=== PATIENT | female | born 1960 | race American Indian/Alaskan Native ===

== ENCOUNTER 2019-09-22 22:01 | Inpatient (IN) | payer MEDICARE ==
[2019-09-22] MEDS ORDERED: LORazepam 2 MG/ML VIAL IV ONE (22:38)
[2019-09-22] MEDS ORDERED: levETIRAcetam 1000 MG/NS 0.75% 1,000 MG/100 ML BAG IV ONE (22:39)
[2019-09-22 23:27] LABS: Basophils # (Auto) 0.1 K/mm3 (0.0-0.1); Basophils % (Auto) 0.5 % (0.0-1.8); Eosinophils # (Auto) 0.2 K/mm3 (0.0-0.4); Eosinophils % (Auto) 1.7 % (0.0-4.3); Hemoglobin 12.2 gm/dl (10.1-14.3); Lymphocytes # (Auto) 2.3 K/mm3 (1.2-5.4); Lymphocytes % (Auto) 18.2 % (13.4-35.0); Mean Corpuscular HGB Conc 33 % (30-34); Mean Corpuscular Volume 90 fl (79-97); Monocytes # (Auto) 0.9 K/mm3 (0.0-0.8); Platelet Count 316 K/mm3 (140-440); Red Blood Count 4.13 M/mm3 (3.65-5.03); Red Cell Distribution Width 13.7 % (13.2-15.2)
[2019-09-22 23:35] LABS: Albumin 3.7 g/dL (3.9-5); Calcium 9.6 mg/dL (8.4-10.2)
[2019-09-23] MEDS ORDERED: SODIUM CHLORIDE 0.9% 1000 ML 1,000 ML IV ONE (00:31)
--- NOTE | 2019-09-23 00:35 | Emergency Department Report ---
ED Seizure HPI - General Chief Complaint: Seizure Stated Complaint: SEIZURE Time Seen by Provider: 09/22/19 22:26 Source: EMS Mode of arrival: Stretcher Limitations: No Limitations - History of Present Illness Initial Comments: Patient is a 59-year-old female brought in by EMS with complaints of seizures. History is provided by nurse who received report from EMS. EMS received patient from [facility] which she is currently inpatient for schizoaffective disorder bipolar type. EMS advised nurse that patient had 6 seizures 3 of which were witnessed by EMS. EMS gave patient 3 mg of Ativan IM. Unable to obtain any further history due to patient's condition. It appears based on paperwork provided by [facility] that patient has a history of seizures and takes Keppra. - Related Data Home Medications Medication Instructions Recorded Confirmed Last Taken Divalproex [Pete MONTELONGO] 500 mg PO BID 09/23/19 09/23/19 Unknown Doxepin HCl 25 mg PO HS 09/23/19 09/23/19 Unknown Oxybutynin Chloride [Ditropan Xl] 10 mg PO HS 09/23/19 09/23/19 Unknown Paliperidone Palmitate [Invega 156 mg IM QMONTH 09/23/19 09/23/19 Unknown Sustenna] Potassium Chloride [K-Dur] 20 meq PO DAILY 09/23/19 09/23/19 Unknown Trazodone HCl 100 mg PO HS 09/23/19 09/23/19 Unknown hydrOXYzine HCL 50 mg PO QHS 09/23/19 09/23/19 Unknown levETIRAcetam [Keppra TAB] 500 mg PO BID 09/23/19 09/23/19 Unknown Allergies Allergy/AdvReac Type Severity Reaction Status Date / Time No Known Allergies Allergy Verified 09/23/19 02:20 ED Review of Systems ROS: Stated complaint: SEIZURE Other details as noted in HPI Comment: Unobtainable due to pts medical conditions ED Past Medical Hx - Past Medical History Previous Medical History?: Yes Hx Hypertension: Yes Hx Congestive Heart Failure: Yes Hx Seizures: Yes Hx Psychiatric Treatment: (psychosis) - Surgical History Past Surgical History?: Yes - Social History Smoking Status: Unknown if ever smoked Substance Use Type: None - Medications Home Medications: Home Medications Medication Instructions Recorded Confirmed Last Taken Type Divalproex Dr Ada MONTELONGO] 500 mg PO BID 09/23/19 09/23/19 Unknown History Doxepin HCl 25 mg PO HS 09/23/19 09/23/19 Unknown History Oxybutynin Chloride [Ditropan Xl] 10 mg PO HS 09/23/19 09/23/19 Unknown History Paliperidone Palmitate [Invega 156 mg IM QMONTH 09/23/19 09/23/19 Unknown History Sustenna] Potassium Chloride [K-Dur] 20 meq PO DAILY 09/23/19 09/23/19 Unknown History Trazodone HCl 100 mg PO HS 09/23/19 09/23/19 Unknown History hydrOXYzine HCL 50 mg PO QHS 09/23/19 09/23/19 Unknown History levETIRAcetam [Keppra TAB] 500 mg PO BID 09/23/19 09/23/19 Unknown History ED Physical Exam - General Limitations: No Limitations General appearance: lethargic, other (responds to sternal rub) - Head Head exam: Present: atraumatic, normocephalic - Eye Eye exam: Present: PERRL, EOMI. Absent: periorbital swelling, periorbital tenderness - ENT ENT exam: Present: mucous membranes moist - Respiratory Respiratory exam: Present: normal lung sounds bilaterally. Absent: respiratory distress, wheezes, rales, rhonchi, stridor, chest wall tenderness, accessory muscle use, decreased breath sounds, prolonged expiratory - Cardiovascular Cardiovascular Exam: Present: regular rate, normal rhythm, normal heart sounds, systolic murmur - Neurological Exam Neurological exam: Present: other (responds to sternal rub) - Skin Skin exam: Present: warm, dry ED Course Vital Signs 09/22/19 09/22/19 09/22/19 22:05 22:10 22:15 Temperature 97.7 F Pulse Rate 77 82 Respiratory 19 18 Rate Blood Pressure Blood Pressure 148/88 [Left] O2 Sat by Pulse Oximetry 09/22/19 09/22/19 09/22/19 22:30 22:45 23:00 Temperature Pulse Rate 86 82 82 Respiratory 22 21 19 Rate Blood Pressure 141/93 161/99 161/99 Blood Pressure [Left] O2 Sat by Pulse 94 98 98 Oximetry 09/22/19 09/22/19 09/22/19 23:15 23:30 23:45 Temperature Pulse Rate 78 74 70 Respiratory 17 16 15 Rate Blood Pressure 158/93 149/89 161/88 Blood Pressure [Left] O2 Sat by Pulse 97 97 99 Oximetry 09/23/19 09/23/19 09/23/19 00:00 00:15 00:30 Temperature Pulse Rate 72 75 73 Respiratory 18 15 13 Rate Blood Pressure 149/83 163/88 144/89 Blood Pressure [Left] O2 Sat by Pulse 98 98 99 Oximetry 09/23/19 09/23/19 09/23/19 00:45 01:00 01:15 Temperature Pulse Rate 71 71 67 Respiratory 15 15 15 Rate Blood Pressure 129/77 135/81 140/81 Blood Pressure [Left] O2 Sat by Pulse 98 96 95 Oximetry 09/23/19 09/23/19 09/23/19 01:30 01:45 02:10 Temperature Pulse Rate 71 70 77 Respiratory 16 19 16 Rate Blood Pressure 128/85 135/81 135/81 Blood Pressure [Left] O2 Sat by Pulse 99 97 91 Oximetry 09/23/19 09/23/19 09/23/19 02:16 02:30 02:40 Temperature Pulse Rate 71 74 78 Respiratory 16 16 17 Rate Blood Pressure 135/81 135/81 135/81 Blood Pressure [Left] O2 Sat by Pulse 94 97 99 Oximetry 09/23/19 09/23/19 09/23/19 02:50 03:00 03:10 Temperature Pulse Rate 72 75 72 Respiratory 16 14 15 Rate Blood Pressure 135/81 135/81 135/81 Blood Pressure [Left] O2 Sat by Pulse 100 91 99 Oximetry 09/23/19 09/23/19 09/23/19 03:20 03:30 03:40 Temperature Pulse Rate 78 70 68 Respiratory 18 16 14 Rate Blood Pressure 135/81 135/81 135/81 Blood Pressure [Left] O2 Sat by Pulse 99 98 100 Oximetry 09/23/19 03:50 Temperature Pulse Rate 72 Respiratory 15 Rate Blood Pressure 135/81 Blood Pressure [Left] O2 Sat by Pulse 95 Oximetry - Consultations Consultation #1: 09/23/19 00:[address] Moody, hospitalist regarding patient history and results, will accept and resume care of patient ED Medical Decision Making - Lab Data Result diagrams: 09/22/19 22:53 09/22/19 22:53 Lab Results 09/22/19 09/22/19 Range/Units 22:53 22:53 WBC 12.8 H (4.5-11.0) K/mm3 RBC 4.13 (3.65-5.03) M/mm3 Hgb 12.2 (10.1-14.3) gm/dl Hct 37.0 (30.3-42.9) % MCV 90 (79-97) fl MCH 29 (28-32) pg MCHC 33 (30-34) % RDW 13.7 (13.2-15.2) % Plt Count 316 (140-440) K/mm3 Lymph % (Auto) 18.2 (13.4-35.0) % [place] % (Auto) 7.0 (0.0-7.3) % Eos % (Auto) 1.7 (0.0-4.3) % Baso % (Auto) 0.5 (0.0-1.8) % Lymph # 2.3 (1.2-5.4) K/mm3 [place] # 0.9 H (0.0-0.8) K/mm3 Eos # 0.2 (0.0-0.4) K/mm3 Baso # 0.1 (0.0-0.1) K/mm3 Seg Neutrophils % 72.6 H (40.0-70.0) % Seg Neutrophils # 9.3 H (1.8-7.7) K/mm3 Sodium 140 (137-145) mmol/L Potassium 3.6 (3.6-5.0) mmol/L Chloride 96.4 L (98-107) mmol/L Carbon Dioxide 29 (22-30) mmol/L Anion Gap 18 mmol/L BUN 25 H (7-17) mg/dL Creatinine 1.1 (0.6-1.2) mg/dL Estimated GFR 51 ml/min BUN/Creatinine Ratio 23 % Glucose 164 H (65-100) mg/dL Calcium 9.6 (8.4-10.2) mg/dL Magnesium 2.30 (1.7-2.3) mg/dL Total Bilirubin 0.40 (0.1-1.2) mg/dL AST 67 H (5-40) units/L ALT 25 (7-56) units/L Alkaline Phosphatase 102 (35-129) units/L Total Creatine Kinase 2337 H (30-135) units/L Total Protein 7.6 (6.3-8.2) g/dL Albumin 3.7 L (3.9-5) g/dL Albumin/Globulin Ratio 0.9 % - Radiology Data Radiology results: report reviewed CT HEAD WITHOUT CONTRAST INDICATION: Patient states she had multiple seizures today. TECHNIQUE: All CT scans at this location are performed using CT dose reduction for ALARA by means of automated exposure control. COMPARISON: None available. FINDINGS: BRAIN: No hemorrhage or mass effect are seen. No evidence of acute infarction is noted. ORBITS: Normal as visualized. SOFT TISSUES OF HEAD: Normal. CALVARIUM: Normal. VISUALIZED PARANASAL SINUSES AND MASTOID AIR CELLS: Clear. ADDITIONAL FINDINGS: None. IMPRESSION: No acute intracranial abnormality. Signer Name: Bull Auguste MD Signed: 09/23/2019 3:09 AM Workstation Name: [id number] Transcribed By: SVITLANA Dictated By: Bull Auguste MD Electronically Authenticated By: Bull Auguste MD Signed Date/Time: 09/23/19 030 DD/ 6 TD/TT: CHEST 1 VIEW 0029 INDICATION / CLINICAL INFORMATION: confusion COMPARISON: None available. FINDINGS: SUPPORT DEVICES: Stable HEART / MEDIASTINUM: Stable LUNGS / PLEURA: Mild right basilar atelectatic changes are seen. No definite acute infiltrates are noted. Less than full degree of inspiration is seen. No pneumothorax. ADDITIONAL FINDINGS: No significant additional findings. IMPRESSION: No significant changes Signer Name: Bull Auguste MD Signed: 09/23/2019 3:33 AM Workstation Name: [id number] Transcribed By: SVITLANA Dictated By: Bull Auguste MD Electronically Authenticated By: Bull Auguste MD Signed Date/Time: 09/23/19 0333 - Medical Decision Making Patient is a 59-year-old female brought in by EMS with complaints of seizures. History is provided by nurse who received report from EMS. EMS received patient from [facility] which she is currently inpatient for schizoaffective disorder bipolar type. EMS advised nurse that patient had 6 seizures 3 of which were witnessed by EMS. EMS gave patient 3 mg of Ativan IM. Unable to obtain any further history due to patient's condition. It appears based on paperwork provided by [facility] that patient has a history of seizures and takes Keppra. Vitals are normal. CT head: IMPRESSION: No acute intracranial abnormality. XR chest: LUNGS / PLEURA: Mild right basilar atelectatic changes are seen. No definite acute infiltrates are noted. Less than full degree of inspiration is seen. No pneumothorax. ADDITIONAL FINDINGS: No significant additional findings.IMPRESSION: No significant changes. Labs with mildly elevated white blood cell count, CK is elevated likely secondary to seizures, UA without evidence of UTI or dehydration. UDS is negative. Patient given Keppra, Ativan, 1 L normal saline. Patient continues to be confused. Dr. Irving, ER attending recommended admission. Spoke to Dr. Moody, hospitalist regarding patient history and results, will accept and resume care of patient Critical care attestation.: If time is entered above; I have spent that time in minutes in the direct care of this critically ill patient, excluding procedure time. ED Disposition Clinical Impression: Seizures, Confusion Disposition: DC-09 OP ADMIT IP TO THIS HOSP Is pt being admited?: Yes Does the pt Need Aspirin: No Condition: Fair Time of Disposition: 00:35
[2019-09-23] MEDS ORDERED: MAGNESIUM HYDROXIDE (MOM) ORAL LIQD UDC PO PRN (02:09)
[2019-09-23] MEDS ORDERED: ONDANSETRON 4 MG/2 ML INJ IV PRN (02:09)
--- NOTE | 2019-09-23 02:22 | History and Physical Report ---
History of Present Illness Date of examination: 09/23/19 Date of admission: 09/23/19 00:36 Chief complaint: Altered mental status Seizure disorder History of present illness: 59-year-old -E[place]ian female with known history of schizoaffective disorder and seizure disorder brought in by EMS today with complaint of seizures. Most of the history was gotten from the emergency room physician as patient could not give any history.Patient is currently a resident of [facility]. Patient was said to have had about 6 episodes of seizures today 3 of which were witnessed by EMS prior to arrival in the emergency room. She was found to be confused upon arrival in the emergency room. Work-up in the emergency room including CT scan of the head has been unremarkable. Patient has been started on Keppra. Past History Past Medical History: heart failure, hypertension, seizures, other (Bipolar disorder, schizoaffective disorder) Past Surgical History: No surgical history Social history: no significant social history Family history: no significant family history Medications and Allergies Allergies Allergy/AdvReac Type Severity Reaction Status Date / Time No Known Allergies Allergy Verified 09/23/19 02:20 Active Meds: Active Medications Acetaminophen (Tylenol) 650 mg PO Q4H PRN PRN Reason: Pain MILD(1-3)/Fever >100.5/NICHOLAS Heparin Sodium (Porcine) (Heparin) 5,000 unit SUB-Q Q8HR FATOUMATA Sodium Chloride (Nacl 0.9% 1000 Ml) 1,000 mls @ 75 mls/hr IV DIRECT FATOUMATA Magnesium Hydroxide (Milk Of Magnesia) 30 ml PO Q4H PRN PRN Reason: Constipation Ondansetron HCl (Zofran) 4 mg IV Q8H PRN PRN Reason: Nausea And Vomiting Sodium Chloride (Sodium Chloride Flush Syringe 10 Ml) 10 ml IV BID FATOUMATA Sodium Chloride (Sodium Chloride Flush Syringe 10 Ml) 10 ml IV PRN PRN PRN Reason: LINE FLUSH Review of Systems ROS unobtainable: due to mental status Exam - Constitutional Vitals: Temp Pulse Resp BP Pulse Ox 97.7 F 77 19 148/88 95 09/22/19 22:05 09/22/19 22:05 09/22/19 22:05 09/22/19 22:10 09/22/19 22:30 General appearance: Present: no acute distress, obese - EENT Eyes: Present: PERRL, EOM intact ENT: hearing intact, clear oral mucosa, dentition normal - Neck Neck: Present: supple, normal ROM - Respiratory Respiratory effort: normal Respiratory: bilateral: CTA - Cardiovascular Heart Sounds: Present: S1 & S2. Absent: gallop, systolic murmur, diastolic murmur, rub - Abdominal General gastrointestinal: Present: soft, non-tender, non-distended, normal bowel sounds. Absent: mass - Integumentary Integumentary: Present: clear, warm, dry. Absent: rash - Musculoskeletal Musculoskeletal: strength equal bilaterally - Psychiatric Psychiatric: cooperative - Neurologic Neurologic: CNII-XII intact, no focal deficits, moves all extremities Results - Labs CBC & Chem 7: 09/22/19 22:53 09/22/19 22:53 Labs: Abnormal lab results 09/22/19 09/22/19 Range/Units 22:53 22:53 WBC 12.8 H (4.5-11.0) K/mm3 [place] # 0.9 H (0.0-0.8) K/mm3 Seg Neutrophils % 72.6 H (40.0-70.0) % Seg Neutrophils # 9.3 H (1.8-7.7) K/mm3 Chloride 96.4 L (98-107) mmol/L BUN 25 H (7-17) mg/dL Glucose 164 H (65-100) mg/dL AST 67 H (5-40) units/L Total Creatine Kinase 2337 H (30-135) units/L Albumin 3.7 L (3.9-5) g/dL Assessment and Plan - Patient Problems (1) Seizures Current Visit: Yes Status: Acute Plan to address problem: Patient started on Keppra and placed on seizure precautions. We will place a consult to neurology for evaluation and recommendation. (2) History of bipolar disorder Current Visit: Yes Status: Acute Plan to address problem: We will resume routine home medications once patient able to tolerate oral int carlitos. (3) Confusion Current Visit: Yes Status: Acute Plan to address problem: Possibly secondary to the seizure disorder. Will monitor mental status. (4) DVT prophylaxis Current Visit: Yes Status: Acute Plan to address problem: Patient placed on subcutaneous heparin. (5) Full code status Current Visit: Yes Status: Acute
--- NOTE | 2019-09-23 03:14 | Cat Scan Report ---
CT HEAD WITHOUT CONTRAST INDICATION: Patient states she had multiple seizures today. TECHNIQUE: All CT scans at this location are performed using CT dose reduction for ALARA by means of automated exposure control. COMPARISON: None available. FINDINGS: BRAIN: No hemorrhage or mass effect are seen. No evidence of acute infarction is noted. ORBITS: Normal as visualized. SOFT TISSUES OF HEAD: Normal. CALVARIUM: Normal. VISUALIZED PARANASAL SINUSES AND MASTOID AIR CELLS: Clear. ADDITIONAL FINDINGS: None. IMPRESSION: No acute intracranial abnormality. Signer Name: Bull Auguste MD Signed: 09/23/2019 3:09 AM Workstation Name: [id number]
--- NOTE | 2019-09-23 03:38 | XRay Report ---
CHEST 1 VIEW 0029 INDICATION / CLINICAL INFORMATION: confusion COMPARISON: None available. FINDINGS: SUPPORT DEVICES: Stable HEART / MEDIASTINUM: Stable LUNGS / PLEURA: Mild right basilar atelectatic changes are seen. No definite acute infiltrates are no alek. Less than full degree of inspiration is seen. No pneumothorax. ADDITIONAL FINDINGS: No significant additional findings. IMPRESSION: No significant changes Signer Name: Bull Auguste MD Signed: 09/23/2019 3:33 AM Workstation Name: [id number]
[2019-09-23] MEDS: levETIRAcetam 500 MG in DEXTROSE 5% IN WATER 100 ML IV SCH ×2 (09:54→21:40)
[2019-09-23] MEDS: SODIUM CHLORIDE 0.9% 1000 ML 1,000 ML IV SCH ×2 (09:55→18:24)
[2019-09-23] MEDS: HEPARIN 5,000 UNIT/1 ML VIAL SUB-Q SCH ×3 (10:05→21:43)
--- NOTE | 2019-09-23 17:38 | Event Note ---
Date: 09/23/19 Patient seen and evaluated Patient admitted for seizures and bipolar disorder Acute encephalopathy
[2019-09-23] MEDS: POTASSIUM CHLORIDE ER 20 MEQ TAB PO SCH (18:06)
[2019-09-23 19:05] LABS: Bilirubin,Urine NEG (Negative); Blood,Urine NEG (Negative); Color,Urine Yellow (Yellow); Protein,Urine <15 mg/dL mg/dL (Negative); RBC,Urine < 1.0 /HPF (0.0-6.0); Urobilinogen,Urine < 2.0 mg/dL (<2.0); WBC,Urine < 1.0 /HPF (0.0-6.0)
[2019-09-23 19:11] LABS: Amphetamine Screen,Urine Negative; Benzodiazepines Screen,Urine Negative; Cannabinoid Screen,Urine Negative; Cocaine Screen,Urine Negative; Methadone Screen,Urine Negative; Opiate Screen,Urine Negative
[2019-09-23] MEDS: DOXEPIN 25 MG CAP PO SCH (21:43)
[2019-09-23] MEDS: traZODone 100 MG TAB PO SCH (21:43)
[2019-09-23] MEDS ORDERED: DOXEPIN HCL 25 MG PO SCH (22:00)
[2019-09-23] MEDS ORDERED: HYDROXYZINE HCL 50 MG PO SCH (22:00)
[2019-09-24] MEDS: HEPARIN 5,000 UNIT/1 ML VIAL SUB-Q SCH ×3 (05:04→21:42)
[2019-09-24] MEDS: OXYBUTYNIN 5 MG TAB PO SCH ×2 (10:59→21:41)
[2019-09-24] MEDS: levETIRAcetam 500 MG in DEXTROSE 5% IN WATER 100 ML IV SCH (10:59)
[2019-09-24] MEDS: POTASSIUM CHLORIDE ER 20 MEQ TAB PO SCH (10:59)
--- NOTE | 2019-09-24 16:19 | Consultation ---
History of Present Illness Chief complaint: ams, seizure History of present illness: This is the Tele Neurology consult. 59-year-old -Ivorian female with known history of schizoaffective disorder and seizure disorder brought in by EMS today with complaint of seizures. Most of the history was gotten from the emergency room physician as patient could not give any history.Patient is currently a resident of [facility]. Patient was said to have had about 6 episodes of seizures today 3 of which were witnessed by EMS prior to arrival in the emergency room. She was found to be confused upon arrival in the emergency room. Work-up in the emergency room including CT scan of the head has been unr emarkable. Patient has been started on Keppra. Past History Past Medical History: heart failure, hypertension, seizures, other (Bipolar disorder, schizoaffective disorder) Past Surgical History: No surgical history Social history: no significant social history Family history: no significant family history Medications and Allergies Allergies Allergy/AdvReac Type Severity Reaction Status Date / Time No Known Allergies Allergy Verified 09/23/19 02:20 Active Meds: Active Medications Acetaminophen (Tylenol) 650 mg PO Q4H PRN PRN Reason: Pain MILD(1-3)/Fever >100.5/NICHOLAS Heparin Sodium (Porcine) (Heparin) 5,000 unit SUB-Q Q8HR FATOUMATA Sodium Chloride (Nacl 0.9% 1000 Ml) 1,000 mls @ 75 mls/hr IV DIRECT FATOUMATA Magnesium Hydroxide (Milk Of Magnesia) 30 ml PO Q4H PRN PRN Reason: Constipation Ondansetron HCl (Zofran) 4 mg IV Q8H PRN PRN Reason: Nausea And Vomiting Sodium Chloride (Sodium Chloride Flush Syringe 10 Ml) 10 ml IV BID FATOUMATA Sodium Chloride (Sodium Chloride Flush Syringe 10 Ml) 10 ml IV PRN PRN PRN Reason: LINE FLUSH Review of Systems ROS unobtainable: due to mental status Past History Past Medical History: heart failure, hypertension, seizures, other (Bipolar disorder, schizoaffective disorder) Past Surgical History: No surgical history Social history: no significant social history Family history: no significant family history Medications and Allergies Allergies Allergy/AdvReac Type Severity Reaction Status Date / Time No Known Allergies Allergy Verified 09/23/19 02:20 Home Medications Medication Instructions Recorded Confirmed Last Taken Type Divalproex [Pete MONTELONGO] 500 mg PO BID 09/23/19 09/23/19 Unknown History Doxepin HCl 25 mg PO HS 09/23/19 09/23/19 Unknown History Oxybutynin Chloride [Ditropan Xl] 10 mg PO HS 09/23/19 09/23/19 Unknown History Paliperidone Palmitate [Invega 156 mg IM QMONTH 09/23/19 09/23/19 Unknown History Sustenna] Potassium Chloride [K-Dur] 20 meq PO DAILY 09/23/19 09/23/19 Unknown History Trazodone HCl 100 mg PO HS 09/23/19 09/23/19 Unknown History hydrOXYzine HCL 50 mg PO QHS 09/23/19 09/23/19 Unknown History levETIRAcetam [Keppra TAB] 500 mg PO BID 09/23/19 09/23/19 Unknown History Active Meds: Active Medications Acetaminophen (Tylenol) 650 mg PO Q4H PRN PRN Reason: Pain MILD(1-3)/Fever >100.5/NICHOLAS Doxepin HCl (Sinequan) 25 mg PO QHS [facility] Last Admin: 09/23/19 21:43 Dose: 25 mg Documented by: Heparin Sodium (Porcine) (Heparin) 5,000 unit SUB-Q Q8HR [facility] Last Admin: 09/24/19 05:04 Dose: 5,000 unit Documented by: Hydroxyzine Pamoate (Vistaril) 50 mg PO QHS [facility] Last Admin: 09/23/19 22:15 Dose: 50 mg Documented by: Sodium Chloride (Nacl 0.9% 1000 Ml) 1,000 mls @ 75 mls/hr IV DIRECT [facility] Last Admin: 09/23/19 18:24 Dose: 75 mls/hr Documented by: Levetiracetam 500 mg/ Dextrose 105 mls @ 400 mls/hr IV Q12HR [facility] Last Admin: 09/24/19 10:59 Dose: 400 mls/hr Documented by: Lorazepam (Ativan) 1 mg IV Q3H PRN PRN Reason: Seizures Magnesium Hydroxide (Milk Of Magnesia) 30 ml PO Q4H PRN PRN Reason: Constipation Ondansetron HCl (Zofran) 4 mg IV Q8H PRN PRN Reason: Nausea And Vomiting Oxybutynin Chloride (Ditropan) 5 mg PO BID [facility] Last Admin: 09/24/19 10:59 Dose: 5 mg Documented by: Potassium Chloride (K-Dur) 20 meq PO DAILY [facility] Last Admin: 09/24/19 10:59 Dose: 20 meq Documented by: Sodium Chloride (Sodium Chloride Flush Syringe 10 Ml) 10 ml IV BID [facility] Last Admin: 09/24/19 10:59 Dose: 10 ml Documented by: Sodium Chloride (Sodium Chloride Flush Syringe 10 Ml) 10 ml IV PRN PRN PRN Reason: LINE FLUSH Trazodone HCl (Desyrel) 100 mg PO HS [facility] Last Admin: 09/23/19 21:43 Dose: 100 mg Documented by: Physical Examination - Vital Signs Vital Signs: Vital Signs Temp Pulse Resp 97.7 F 77 19 09/22/19 22:05 09/22/19 22:05 09/22/19 22:05 - Physical Exam Narrative exam: Neurology examination: MS; awake alert, but not talking. at times follows commands. CN- no facial asymmetry.. pupils reactive by nurse. M- moving left side. not moving right side. Laboratory Results - last 24 hr 09/23/19 09/23/19 18:00 18:00 Urine Color Yellow Urine Turbidity Clear Urine pH 6.0 Ur Specific [place] 1.015 Urine Protein <15 mg/dl Urine Glucose (UA) Neg Urine Ketones Tr Urine Blood Neg Urine Nitrite Neg Urine Bilirubin Neg Urine Urobilinogen < 2.0 Ur Leukocyte Esterase Neg Urine WBC (Auto) < 1.0 Urine RBC (Auto) < 1.0 U Epithel Cells (Auto) < 1.0 Urine Opiates Screen Negative Urine Methadone Screen Negative Ur Barbiturates Screen Negative Ur Phencyclidine Scrn Negative Ur Amphetamines Screen Negative U Benzodiazepines Scrn Negative Urine Cocaine Screen Negative U Marijuana (THC) Screen Negative Drugs of Abuse Note Disclamer Results - Laboratory Findings CBC and BMP: 09/22/19 22:53 09/22/19 22:53 Abnormal Lab Findings: Abnormal Labs 09/22/19 09/22/19 22:53 22:53 WBC 12.8 H Heard # 0.9 H Seg Neutrophils % 72.6 H Seg Neutrophils # 9.3 H Chloride 96.4 L BUN 25 H Glucose 164 H AST 67 H Total Creatine Kinase 2337 H Albumin 3.7 L Assessment and Plan rule out possible stroke. could be post ictal. could be psychogenic . not moving right side. ct brain- normal. plan- mri brain w out. increase keppra 1000 mg bid. asa 325 mg q mychal nd lipitor 40 mg q hs. permissive hypertension. thanks.
[2019-09-24] MEDS: ACETAMINOPHEN 325 MG TAB PO PRN (17:08)
[2019-09-24] MEDS: levETIRAcetam 500 MG TAB PO SCH (21:41)
[2019-09-24] MEDS: ASPIRIN 325 MG TAB PO SCH (21:41)
[2019-09-24] MEDS: traZODone 100 MG TAB PO SCH (21:42)
[2019-09-24] MEDS: DOXEPIN 25 MG CAP PO SCH (21:43)
[2019-09-24] MEDS ORDERED: levETIRAcetam 1,000 MG in DEXTROSE 5% IN WATER 100 ML IV SCH (22:00)
[2019-09-25] MEDS: HEPARIN 5,000 UNIT/1 ML VIAL SUB-Q SCH ×3 (05:45→21:21)
[2019-09-25] MEDS: SODIUM CHLORIDE 0.9% 1000 ML 1,000 ML IV SCH (05:45)
--- NOTE | 2019-09-25 09:01 | Consultation ---
History of Present Illness - Reason for Consult Consult date: 09/25/19 Reason for consult: MHE Requesting physician: AMADEO TAVERA - Chief Complaint Chief complaint: ams, seizure - History of Present Psychiatric Illness Per ED Provider: Patient is a 59-year-old female brought in by EMS with complaints of seizures. History is provided by nurse who received report from EMS. EMS received patient from [facility] which she is currently inpatient for schizoaffective disorder bipolar type. EMS advised nurse that patient had 6 seizures 3 of which were witnessed by EMS. EMS gave patient 3 mg of Ativan IM. Unable to obtain any further history due to patient's condition. It appears based on paperwork provided by [facility] that patient has a history of seizures and takes Keppra. PSYCH HPI Patient is a 59 year old Female with Past psychiatric history of schizoaffective disorder who was admitted to [place] for mental health management and transferred here for medical management. Patient is alert, delaye d response, barely communicable but was able to say she is good and also reedlty thinks she is in [place] when asked where she think she was. COllateral Per Sister: Reports patient had 2018 patient had similar crisis, and even went into a coma at [facility]. Sister Reports patient started having same behavior as she did in the past during her last crisis in 2018 like starring to people, had voiced burk talking to her, and voiced that she needs mental help evaluation. She reports pt had been stable on Invega and sees Dr. Griffin. She reports patient got her Invega shot yesterday, had missed the shot on 6th and since yesterday, she noticed patient was verbal, she previously mute and would prefer not having her on any medications and just observe as the shot takes effe ct. PAST PSYCHIATRIC HISTORY Diagnoses: Schizoaffective Suicide attempts or Self-harm behavior: n/a Prior psychiatric hospitalizations: Yes Substance Abuse history: n/a Previous psychiatric medications tried: Invega monthly shot Outpatient treatment: PAST MEDICAL HISTORY: Seizures Family Psychiatric History: None reported or documented SOCIAL HISTORY Marital Status: n/a Living Arrangements: with sister Employment Status: disabled Access to guns/weapons: none reported Education: n/a History of Abuse: n/a Legal History: n/a REVIEW OF SYSTEMS ROS cannot be reliably obtained from the patient due to her confusion and somnolence. MENTAL STATUS EXAMINATION General Appearance and Behavior: Age appropriate,good hygiene, wearing appropriate clothes, lying in bed, poor eye contact, polite/irritable with questioning. Cooperation: Withdrawn Psychomotor Behavior: psychomotor retardation Mood: Good Affect and affective range: flat Thought Process: illogical Thought Content: Loose association Speech: soft volume Intellectual Functioning: fair Suicidal Ideation: n/a Homicidal Ideation: n/a Impulse Control: Impaired Insight and Judgment: Impaired Memory: memory impaired Attention: Distracted Orientation: Alert but disoriented RECOMMENDATIONS Per sister, she does not want any medication started, says pt just got her monthly Invega shot and she thinks patient already responding to it since she spoke to her first time since episode. She also says pt to be transferred to [place] as they agreed to accept her on return. MEDICATIONS: Risks, benefits and alternatives of medications discussed with the patient, questions answered and consent obtained from patient. PSYCHOTHERAPY: Supportive psychotherapy provided MEDICAL: Per primary team DELIRIUM PRECAUTIONS: Please re-orient patient frequently, keep lights on during the day, and minimize benzodiazepines and opiates as these medications could worsen patient's confusion. TALENT ADVISOR: Per medical team DISPOSITION: Patient to be discharged back to [place] per sister. LEGAL STATUS: 1013 FOLLOW-UP: Will sign off Thank you for the consult. Please contact with any questions and/or concerns. Medications and Allergies Allergies Allergy/AdvReac Type Severity Reaction Status Date / Time No Known Allergies Allergy Verified 09/23/19 02:20 Home Medications Medication Instructions Recorded Confirmed Last Taken Type Divalproex Dr [DepaKOTE DR] 500 mg PO BID 09/23/19 09/23/19 Unknown History Doxepin HCl 25 mg PO HS 09/23/19 09/23/19 Unknown History Oxybutynin Chloride [Ditropan Xl] 10 mg PO HS 09/23/19 09/23/19 Unknown History Paliperidone Palmitate [Invega 156 mg IM QMONTH 09/23/19 09/23/19 Unknown History Sustenna] Potassium Chloride [K-Dur] 20 meq PO DAILY 09/23/19 09/23/19 Unknown History Trazodone HCl 100 mg PO HS 09/23/19 09/23/19 Unknown History hydrOXYzine HCL 50 mg PO QHS 09/23/19 09/23/19 Unknown History levETIRAcetam [Keppra TAB] 500 mg PO BID 09/23/19 09/23/19 Unknown History Active Meds: Active Medications Acetaminophen (Tylenol) 650 mg PO Q4H PRN PRN Reason: Pain MILD(1-3)/Fever >100.5/NICHOLAS Last Admin: 09/24/19 17:08 Dose: 650 mg Documented by: Aspirin (Aspirin) 325 mg PO QDAY [facility] Last Admin: 09/24/19 21:41 Dose: 325 mg Documented by: Atorvastatin Calcium (Lipitor) 40 mg PO QHS [facility] Last Admin: 09/24/19 21:42 Dose: 40 mg Documented by: Doxepin HCl (Sinequan) 25 mg PO QHS [facility] Last Admin: 09/24/19 21:43 Dose: 25 mg Documented by: Heparin Sodium (Porcine) (Heparin) 5,000 unit SUB-Q Q8HR [facility] Last Admin: 09/25/19 05:45 Dose: 5,000 unit Documented by: Hydroxyzine Pamoate (Vistaril) 50 mg PO QHS [facility] Last Admin: 09/24/19 21:41 Dose: 50 mg Documented by: Sodium Chloride (Nacl 0.9% 1000 Ml) 1,000 mls @ 75 mls/hr IV DIRECT [facility] Last Admin: 09/25/19 05:45 Dose: 75 mls/hr Documented by: Levetiracetam (Keppra) 1,000 mg PO BID [facility] Last Admin: 09/24/19 21:41 Dose: 1,000 mg Documented by: Lorazepam (Ativan) 1 mg IV Q3H PRN PRN Reason: Seizures Magnesium Hydroxide (Milk Of Magnesia) 30 ml PO Q4H PRN PRN Reason: Constipation Ondansetron HCl (Zofran) 4 mg IV Q8H PRN PRN Reason: Nausea And Vomiting Oxybutynin Chloride (Ditropan) 5 mg PO BID [facility] Last Admin: 09/24/19 21:41 Dose: 5 mg Documented by: Potassium Chloride (K-Dur) 20 meq PO DAILY [facility] Last Admin: 09/24/19 10:59 Dose: 20 meq Documented by: Sodium Chloride (Sodium Chloride Flush Syringe 10 Ml) 10 ml IV BID [facility] Last Admin: 09/24/19 21:43 Dose: 10 ml Documented by: Sodium Chloride (Sodium Chloride Flush Syringe 10 Ml) 10 ml IV PRN PRN PRN Reason: LINE FLUSH Trazodone HCl (Desyrel) 100 mg PO HS [facility] Last Admin: 09/24/19 21:42 Dose: 100 mg Documented by: Mental Status Exam - Vital signs Last Vital Signs Temp 98.0 F 09/24/19 23:40 Pulse 83 09/25/19 01:00 Resp 20 09/24/19 23:40 BP 133/75 09/24/19 23:40 Pulse Ox 93 09/24/19 19:46 Results Result Diagrams: 09/22/19 22:53 09/22/19 22:53 All other labs normal.
[2019-09-25] MEDS: OXYBUTYNIN 5 MG TAB PO SCH ×2 (10:14→21:21)
[2019-09-25] MEDS: POTASSIUM CHLORIDE ER 20 MEQ TAB PO SCH (10:14)
[2019-09-25] MEDS: ASPIRIN 325 MG TAB PO SCH (10:14)
[2019-09-25] MEDS: levETIRAcetam 500 MG TAB PO SCH ×2 (10:14→21:21)
[2019-09-25] MEDS: LORazepam 2 MG/ML VIAL IV PRN (10:44)
[2019-09-25] MEDS ORDERED: BENZTROPINE 2 MG/2 ML INJ IM ONE (12:15)
--- NOTE | 2019-09-25 13:28 | Magnetic Resonance Report ---
NONENHANCED MR SCAN OF THE BRAIN: INDICATION / CLINICAL INFORMATION: "Multiple seizures 3 days ago"; stroke TECHNIQUE: Multiplanar, multisequence MR images of the brain obtained. COMPARISON: CT scan of the head from 09/22/2019 FINDINGS: BRAIN / INTRACRANIAL CONTENTS: Abnormal MRI scan Restrictive diffusion is seen along the left anterior medial frontal lobe and right anterior medial f rontal lobe, predominantly involving the floyd matter, sparing the subcortical U fibers. Increased FLA IR and T2 signal intensities are seen. No susceptibility changes are seen which are exclude hemorrhag ic changes. Insular cortex, hippocampus are normal. The areas of involvement along the medial frontal cortex might laterally into cingulate gyrus and als o superior lesser degree middle frontal gyri. Involvement of the frontal gyrus suggest this is an isc hemic lesion. Since cingulate gyrus is also involvement, please correlate with symptoms be due to her pes encephalitis also. Gradient echo images, there appears to be normally expected flow signal in the pericallosal arteries. CRANIOCERVICAL JUNCTION: No significant abnormality. VASCULAR FLOW-VOIDS: No significant abnormality. ORBITS: No significant abnormality of visualized orbits. SINUSES / MASTOIDS: No significant abnormality of visualized sinuses and mastoid air cells. ADDITIONAL FINDINGS: None. IMPRESSION: Abnormal diffusion, FLAIR and T2 signal intensities in the medial frontal lobes bilaterally more on t he left side; considerations are nonhemorrhagic subacute ischemia; less likely, herpes encephalitis Signer Name: Daniela Boyle MD Signed: 09/25/2019 1:23 PM Workstation Name: [id number]
--- NOTE | 2019-09-25 17:15 | Progress Note ---
Assessment and Plan Day #2 09/24/2019 Patient continues to have unilateral seizures on the right side Also altered (1) Seizures Current Visit: Yes Status: Acute Plan to address problem: Patient started on Keppra and placed on seizure precautions. Neurology consult appreciated (2) History of bipolar disorder Current Visit: Yes Status: Acute Plan to address problem: We will resume routine home medications once patient able to tolerate oral intake. (3) Confusion Current Visit: Yes Status: Acute Plan to address problem: Possibly secondary to the seizure disorder. Will monitor mental status. (4) DVT prophylaxis Current Visit: Yes Status: Acute Plan to address problem: Patient placed on subcutaneous heparin. (5) Full code status Current Visit: Yes Status: Acute Subjective Date of service: 09/25/19 Principal diagnosis: Seizure disorder Interval history: 59-year-old -[place] female with known history of schizoaffective disorder and seizure disorder brought in by EMS today with complaint of seizures. Most of the history was gotten from the emergency room physician as patient could not give any history.Patient is currently a resident of [facility]. Patient was said to have had about 6 episodes of seizures today 3 of which were witnessed by EMS prior to arrival in the emergency room. She was found to be confused upon arrival in the emergency room. Work-up in the emergency room including CT scan of the head has been unremarkable. Patient has been started on Keppra. Objective - Constitutional Vitals: Vital Signs - 12hr 09/25/19 09/25/19 08:11 13:48 Pulse Rate 71 73 Respiratory 18 Rate Blood Pressure 128/80 138/84 O2 Sat by Pulse 95 98 Oximetry General appearance: Present: no acute distress, well-nourished - EENT Eyes: PERRL, EOM intact ENT: hearing intact, clear oral mucosa Ears: bilateral: normal - Neck Neck: supple, normal ROM - Respiratory Respiratory effort: normal Respiratory: bilateral: CTA - Breasts Breasts: normal - Cardiovascular Heart rate: 78 Rhythm: regular Heart Sounds: Present: S1 & S2. Absent: gallop, rub Extremities: pulses intact, No edema, normal color, Full ROM - Gastrointestinal General gastrointestinal: Present: soft, non-tender, non-distended, normal bowel sounds - Genitourinary Female genitourinary: normal - Integumentary Integumentary: clear, warm, dry - Musculoskeletal Musculoskeletal: 1, strength equal bilaterally - Neurologic Neurologic: moves all extremities - Psychiatric Psychiatric: memory intact, appropriate mood/affect, intact judgment & insight - Labs CBC & Chem 7: 09/22/19 22:53 09/22/19 22:53
--- NOTE | 2019-09-25 17:19 | Progress Note ---
Assessment and Plan Day #2 09/24/2019 Patient continues to have unilateral seizures on the right side Also altered (1) Seizures Current Visit: Yes Status: Acute Plan to address problem: Patient started on Keppra and placed on seizure precautions. Neurology consult appreciated Patient stable to go to [facility] (2) History of bipolar disorder Current Visit: Yes Status: Acute Plan to address problem: We will resume routine home medications once patient able to tolerate oral intake. Patient stable to go to [facility] (3) Confusion Current Visit: Yes Status: Acute Plan to address problem: Possibly secondary to the seizure disorder. Will monitor mental status. (4) DVT prophylaxis Current Visit: Yes Status: Acute Plan to address problem: Patient placed on subcutaneous heparin. (5) Full code status Current Visit: Yes Status: Acute Subjective Date of service: 09/25/19 Principal diagnosis: Seizure disorder Interval history: 59-year-old -Italian female with known history of schizoaffective diso rder and seizure disorder brought in by EMS today with complaint of seizures. Most of the history was gotten from the emergency room physician as patient could not give any history.Patient is currently a resident of [facility]. Patient was said to have had about 6 episodes of seizures today 3 of which were witnessed by EMS prior to arrival in the emergency room. She was found to be co nfused upon arrival in the emergency room. Work-up in the emergency room including CT scan of the head has been unremarkable. Patient has been started on Keppra. Objective - Constitutional Vitals: Vital Signs - 12hr 09/25/19 09/25/19 09/25/19 08:11 12:00 13:48 Pulse Rate 71 73 Pulse Rate [ 73 Right Radial] Respiratory 18 20 Rate Blood Pressure 128/80 138/84 O2 Sat by Pulse 95 98 98 Oximetry General appearance: Present: no acute distress, well-nourished - EENT Eyes: PERRL, EOM intact ENT: hearing intact, clear oral mucosa Ears: bilateral: normal - Neck Neck: supple, normal ROM - Respiratory Respiratory effort: normal Respiratory: bilateral: CTA - Breasts Breasts: normal - Cardiovascular Heart rate: 78 Rhythm: regular Heart Sounds: Present: S1 & S2. Absent: gallop, rub Extremities: pulses intact, No edema, normal color, Full ROM - Gastrointestinal General gastrointestinal: Present: soft, non-tender, non-distended, normal bowel sounds - Genitourinary Female genitourinary: normal - Integumentary Integumentary: clear, warm, dry - Musculoskeletal Musculoskeletal: 1, strength equal bilaterally - Neurologic Neurologic: moves all extremities, other (Seizures subsided) - Psychiatric Psychiatric: memory intact, appropriate mood/affect, intact judgment & insight - Allied health notes Allied health notes reviewed: nursing, case management - Labs CBC & Chem 7: 09/22/19 22:53 09/22/19 22:53
[2019-09-25] MEDS: DOXEPIN 25 MG CAP PO SCH (21:21)
[2019-09-25] MEDS: traZODone 100 MG TAB PO SCH (21:21)
[2019-09-26] MEDS: HEPARIN 5,000 UNIT/1 ML VIAL SUB-Q SCH ×3 (05:51→21:14)
[2019-09-26] MEDS: OXYBUTYNIN 5 MG TAB PO SCH ×2 (10:04→21:14)
[2019-09-26] MEDS: ASPIRIN 325 MG TAB PO SCH (10:04)
[2019-09-26] MEDS: levETIRAcetam 500 MG TAB PO SCH ×2 (10:04→21:15)
[2019-09-26] MEDS: POTASSIUM CHLORIDE ER 20 MEQ TAB PO SCH (10:04)
[2019-09-26] MEDS: SODIUM CHLORIDE 0.9% 1000 ML 1,000 ML IV SCH (19:05)
[2019-09-26] MEDS: ACETAMINOPHEN 325 MG TAB PO PRN (21:14)
[2019-09-26] MEDS: traZODone 100 MG TAB PO SCH (21:14)
[2019-09-26] MEDS: DOXEPIN 25 MG CAP PO SCH (21:14)
[2019-09-27] MEDS: HEPARIN 5,000 UNIT/1 ML VIAL SUB-Q SCH ×3 (06:00→22:36)
--- NOTE | 2019-09-27 09:36 | Progress Note ---
Assessment and Plan Day #2 09/24/2019 Patient continues to have unilateral seizures on the right side Also altered September 25, 2019 no further seizures 09/26/2019 waiting for placement to acute inpatient psychiatric facility (1) Seizures Current Visit: Yes Status: Acute Plan to address problem: Patient started on Keppra and placed on seizure precautions. Neurology consult appreciated Patient stable to go to [facility] (2) History of bipolar disorder Current Visit: Yes Status: Acute Plan to address problem: We will resume routine home medications once patient able to tolerate oral intake. Patient stable to go to [facility] (3) Confusion Current Visit: Yes Status: Acute Plan to address problem: Possibly secondary to the seizure disorder. Will monitor mental status. (4) DVT prophylaxis Current Visit: Yes Status: Acute Plan to address problem: Patient placed on subcutaneous heparin. (5) Full code status Current Visit: Yes Status: Acute Subjective Date of service: 09/26/19 Principal diagnosis: Seizure disorder Interval history: 59-year-old -Latvian female with known history of schizoaffective disorder and seizure disorder brought in by EMS today with complaint of seizures. Most of the history was gotten from the emergency room physician as patient could not give any history.Patient is currently a resident of [facility]. Patient was said to have had about 6 episodes of seizures today 3 of which were witnessed by EMS prior to arrival in the emergency room. She was found to be confused upon arrival in the emergency room. Work-up in the emergency room including CT scan of the head has been unremarkable. Patient has been started on Keppra. Objective - Constitutional Vitals: Vital Signs - 12hr 09/26/19 09/26/19 09/26/19 22:39 22:56 23:33 Temperature 98.7 F Pulse Rate 92 H 87 Respiratory 18 20 Rate Blood Pressure 156/88 O2 Sat by Pulse 97 97 Oximetry 09/27/19 09/27/19 03:35 08:03 Temperature 98.2 F 98.4 F Pulse Rate 80 72 Respiratory 18 20 Rate Blood Pressure 162/78 147/78 O2 Sat by Pulse 98 96 Oximetry General appearance: Present: no acute distress, well-nourished - EENT Eyes: PERRL, EOM intact ENT: hearing intact, clear oral mucosa Ears: bilateral: normal - Neck Neck: supple, normal ROM - Respiratory Respiratory effort: normal Respiratory: bilateral: CTA - Breasts Breasts: normal - Cardiovascular Heart rate: 78 Rhythm: regular Heart Sounds: Present: S1 & S2. Absent: gallop, rub Extremities: pulses intact, No edema, normal color, Full ROM - Gastrointestinal General gastrointestinal: Present: soft, non-tender, non-distended, normal bowel sounds - Genitourinary Female genitourinary: normal - Integumentary Integumentary: clear, warm, dry - Musculoskeletal Musculoskeletal: 1, strength equal bilaterally - Neurologic Neurologic: moves all extremities - Psychiatric Psychiatric: memory intact, appropriate mood/affect, intact judgment & insight - Labs CBC & Chem 7: 09/22/19 22:53 09/22/19 22:53 Labs: Abnormal lab results 09/26/19 09/26/19 Range/Units 19:22 23:47 POC Glucose 149 H 129 H (70-105)
[2019-09-27] MEDS: SODIUM CHLORIDE 0.9% 1000 ML 1,000 ML IV SCH (09:42)
[2019-09-27] MEDS: ASPIRIN 325 MG TAB PO SCH (10:06)
[2019-09-27] MEDS: levETIRAcetam 500 MG TAB PO SCH ×2 (10:06→22:41)
[2019-09-27] MEDS: OXYBUTYNIN 5 MG TAB PO SCH ×2 (10:07→22:36)
[2019-09-27] MEDS: POTASSIUM CHLORIDE ER 20 MEQ TAB PO SCH (10:07)
--- NOTE | 2019-09-27 17:03 | Progress Note ---
Assessment and Plan MRI brain- showing bifrontal frontal and left frontal ischemia. only gyrus is involved. also could be encephalitis. differntial includes , changes may also occur post seizure. ct brain- normal. plan- JENNA would need to be done.Echo will be done first. LP- cell count w diff, glucose, protein, and HSV pcr. cta head and neck. may need loop monitoring. continue keppra 1000 mg bid. asa 325 mg q day and lipitor 40 mg q hs. permissive hypertension. thanks. Subjective Principal diagnosis: Seizure disorder Interval history: no new seizures Objective - Exam Narrative Exam: Neurology examination: MS; awake alert, but not talking. at times follows commands. seems abulic. CN- no facial asymmetry.. pupils reactive by nurse. M- moving left side. not moving right side. Laboratory Results - last 24 hr 09/23/19 09/23/19 18:00 18:00 Urine Color Yellow Urine Turbidity Clear Urine pH 6.0 Ur Specific [place] 1.015 Urine Protein <15 mg/dl Urine Glucose (UA) Neg Urine Ketones Tr Urine Blood Neg Urine Nitrite Neg Urine Bilirubin Neg Urine Urobilinogen < 2.0 Ur Leukocyte Esterase Neg Urine WBC (Auto) < 1.0 Urine RBC (Auto) < 1.0 U Epithel Cells (Auto) < 1.0 Urine Opiates Screen Negative Urine Methadone Screen Negative Ur Barbiturates Screen Negative Ur Phencyclidine Scrn Negative Ur Amphetamines Screen Negative U Benzodiazepines Scrn Negative Urine Cocaine Screen Negative U Marijuana (THC) Screen Negative Drugs of Abuse Note Disclamer - Vital Sign Vital Signs - 12hr 09/27/19 09/27/19 09/27/19 08:03 11:27 12:00 Temperature 98.4 F 98.9 F Pulse Rate 72 73 Respiratory 20 20 18 Rate Blood Pressure 147/78 156/84 O2 Sat by Pulse 96 99 97 Oximetry 09/27/19 15:55 Temperature 97.3 F L Pulse Rate 68 Respiratory 20 Rate Blood Pressure 160/77 O2 Sat by Pulse 100 Oximetry - Laboratory Findings CBC and BMP: 09/22/19 22:53 09/22/19 22:53 Abnormal Lab Findings: Abnormal Labs 09/22/19 09/22/19 09/26/19 22:53 22:53 19:22 WBC 12.8 H [place] # 0.9 H Seg Neutrophils % 72.6 H Seg Neutrophils # 9.3 H Chloride 96.4 L BUN 25 H Glucose 164 H POC Glucose 149 H AST 67 H Total Creatine Kinase 2337 H Albumin 3.7 L 09/26/19 23:47 WBC [place] # Seg Neutrophils % Seg Neutrophils # Chloride BUN Glucose POC Glucose 129 H AST Total Creatine Kinase Albumin
[2019-09-27] MEDS: traZODone 100 MG TAB PO SCH (22:36)
[2019-09-27] MEDS: DOXEPIN 25 MG CAP PO SCH (22:36)
[2019-09-27] MEDS: ACETAMINOPHEN 325 MG TAB PO PRN (22:46)
[2019-09-27] MEDS: LORazepam 2 MG/ML VIAL IV PRN (22:46)
[2019-09-28] MEDS ORDERED: hydrALAZINE 20 MG/1 ML INJ IV PRN (02:53)
[2019-09-28] MEDS: HEPARIN 5,000 UNIT/1 ML VIAL SUB-Q SCH ×3 (06:48→22:18)
--- NOTE | 2019-09-28 08:16 | Progress Note ---
Assessment and Plan Day #2 09/24/2019 Patient continues to have unilateral seizures on the right side Also altered September 25, 2019 no further seizures 09/26/2019 waiting for placement to acute inpatient psychiatric facility (1) Seizures Current Visit: Yes Status: Acute Plan to address problem: Patient started on Keppra and placed on seizure precautions. Neurology consult appreciated Patient stable to go to [facility] Per neurology "MRI brain- showing bifrontal frontal and left frontal ischemia. only gyrus is involved. also could be encephalitis. differntial includes , changes may also occur post seizure. ct brain- normal. plan- JENNA would need to be done.Echo will be done first. LP- cell count w diff, glucose, protein, and HSV pcr. cta head and neck. may need loop monitoring. " Family refuses all the tests and want the patient to be transferred to [facility] which he usually goes Working on transfer to [facility] continue keppra 1000 mg bid. asa 325 mg q day and lipitor 40 mg q hs. permissive hypertension. thanks. " (2) History of bipolar disorder Current Visit: Yes Status: Acute Plan to address problem: We will resume routine home medications once patient able to tolerate oral intake. Patient stable to go to [facility] (3) Confusion Current Visit: Yes Status: Acute Plan to address problem: Possibly secondary to the seizure disorder. Will monitor mental status. (4) DVT prophylaxis Current Visit: Yes Status: Acute Plan to address problem: Patient placed on subcutaneous heparin. (5) Full code status Current Visit: Yes Status: Acute Discharge planning issues Family refuses JENNA and lumbar puncture and other tests They want the patient to be transferred to [facility] where she goes general for further work-up for rule out post herpetic encephalitis Subjective Date of service: 09/27/19 Principal diagnosis: Seizure disorder Interval history: 59-year-old -[place] female with known history of schizoaffective disorder and seizure disorder brought in by EMS today with complaint of seizures. Most of the history was gotten from the emergency room physician as patient could not give any history.Patient is currently a resident of [facility]. Patient was said to have had about 6 episodes of seizures today 3 of which were witnessed by EMS prior to arrival in the emergency room. She was found to be confused upon arrival in the emergency room. Work-up in the emergency room including CT scan of the head has been unremarkable. Patient has been started on Keppra. Objective - Constitutional Vitals: Vital Signs - 12hr 09/27/19 09/27/19 09/28/19 22:46 23:25 00:00 Temperature 97.3 F L Pulse Rate 79 Respiratory 20 20 18 Rate Blood Pressure 187/89 O2 Sat by Pulse 96 97 Oximetry 09/28/19 09/28/19 09/28/19 01:00 03:02 03:27 Temperature 97.5 F L Pulse Rate 79 79 88 Respiratory 18 Rate Blood Pressure 187/89 145/76 O2 Sat by Pulse 96 Oximetry 09/28/19 07:41 Temperature 97.9 F Pulse Rate 86 Respiratory 20 Rate Blood Pressure 135/83 O2 Sat by Pulse 97 Oximetry General appearance: Present: no acute distress, well-nourished - EENT Eyes: PERRL, EOM intact ENT: hearing intact, clear oral mucosa Ears: bilateral: normal - Neck Neck: supple, normal ROM - Respiratory Respiratory effort: normal Respiratory: bilateral: CTA - Breasts Breasts: normal - Cardiovascular Rhythm: regular Heart Sounds: Present: S1 & S2. Absent: gallop, rub Extremities: pulses intact, No edema, normal color, Full ROM - Gastrointestinal General gastrointestinal: Present: soft, non-tender, non-distended, normal bowel sounds - Genitourinary Female genitourinary: normal - Integumentary Integumentary: clear, warm, dry - Musculoskeletal Musculoskeletal: 1, strength equal bilaterally - Neurologic Neurologic: moves all extremities - Psychiatric Psychiatric: memory intact, appropriate mood/affect, intact judgment & insight - Labs CBC & Chem 7: 09/22/19 22:53 09/22/19 22:53
[2019-09-28] MEDS: ASPIRIN 325 MG TAB PO SCH (09:08)
[2019-09-28] MEDS: levETIRAcetam 500 MG TAB PO SCH ×2 (09:09→22:17)
[2019-09-28] MEDS: POTASSIUM CHLORIDE ER 20 MEQ TAB PO SCH (09:09)
[2019-09-28] MEDS: hydroCHLOROthiazide 25 MG TAB PO SCH (09:09)
[2019-09-28] MEDS: OXYBUTYNIN 5 MG TAB PO SCH ×2 (09:09→22:18)
--- NOTE | 2019-09-28 15:37 | Progress Note ---
Assessment and Plan MRI brain- showing bifrontal frontal and left frontal ischemia. only gyrus is involved. also could be encephalitis. differntial includes , changes may also occur post seizure. ct brain- normal. echo nl. plan- JENNA . LP- cell count w diff, glucose, protein, and HSV pcr. cta head and neck. may need loop monitoring. continue keppra 1000 mg bid. asa 325 mg q day and lipitor 40 mg q hs. permissive hypertension. -- family refusing the tests to be done. thanks. Subjective Principal diagnosis: Seizure disorder Interval history: TELE NEUROLOGY CONSULT no new seizures Objective - Exam Narrative Exam: Neurology examination: MS; more awake alert, but not talking. at times follows commands. seems abulic. CN- no facial asymmetry.. pupils reactive by nurse. M- moving left side. not moving right side. Laboratory Results - last 24 hr 09/23/19 09/23/19 18:00 18:00 Urine Color Yellow Urine Turbidity Clear Urine pH 6.0 Ur Specific [place] 1.015 Urine Protein <15 mg/dl Urine Glucose (UA) Neg Urine Ketones Tr Urine Blood Neg Urine Nitrite Neg Urine Bilirubin Neg Urine Urobilinogen < 2.0 Ur Leukocyte Esterase Neg Urine WBC (Auto) < 1.0 Urine RBC (Auto) < 1.0 U Epithel Cells (Auto) < 1.0 Urine Opiates Screen Negative Urine Methadone Screen Negative Ur Barbiturates Screen Negative Ur Phencyclidine Scrn Negative Ur Amphetamines Screen Negative U Benzodiazepines Scrn Negative Urine Cocaine Screen Negative U Marijuana (THC) Screen Negative Drugs of Abuse Note Disclamer - Vital Sign Vital Signs - 12hr 09/28/19 09/28/19 09/28/19 07:41 09:00 11:29 Temperature 97.9 F 97.5 F L Pulse Rate 86 80 79 Respiratory 20 20 Rate Blood Pressure 135/83 153/82 O2 Sat by Pulse 97 95 Oximetry - Laboratory Findings CBC and BMP: 09/22/19 22:53 09/22/19 22:53 Abnormal Lab Findings: Abnormal Labs 09/22/19 09/22/19 09/26/19 22:53 22:53 19:22 WBC 12.8 H Luce # 0.9 H Seg Neutrophils % 72.6 H Seg Neutrophils # 9.3 H Chloride 96.4 L BUN 25 H Glucose 164 H POC Glucose 149 H AST 67 H Total Creatine Kinase 2337 H Albumin 3.7 L 09/26/19 23:47 WBC Luce # Seg Neutrophils % Seg Neutrophils # Chloride BUN Glucose POC Glucose 129 H AST Total Creatine Kinase Albumin
--- NOTE | 2019-09-28 18:28 | Progress Note ---
Assessment and Plan Day #2 09/24/2019 Patient continues to have unilateral seizures on the right side Also altered September 25, 2019 no further seizures 09/26/2019 waiting for placement to acute inpatient psychiatric facility (1) Seizures Current Visit: Yes Status: Acute Plan to address problem: Patient started on Keppra and placed on seizure precautions. Neurology consult appreciated Patient stable to go to [facility] Per neurology "MRI brain- showing bifrontal frontal and left frontal ischemia. only gyrus is involved. also could be encephalitis. differntial includes , changes may also occur post seizure. ct brain- normal. plan- JENNA would need to be done.Echo will be done first. LP- cell count w diff, glucose, protein, and HSV pcr. cta head and neck. may need loop monitoring. " Family refuses all the tests and want the patient to be transferred to [facility] which he usually goes Working on transfer to [facility] continue keppra 1000 mg bid. asa 325 mg q day and lipitor 40 mg q hs. permissive hypertension. thanks. " Family refuses further testing. Patient is also getting more alert and oriented (2) History of bipolar disorder Current Visit: Yes Status: Acute Plan to address problem: We will resume routine home medications once patient able to tolerate oral intake. Patient stable to go to [facility] (3) Confusion Current Visit: Yes Status: Acute Plan to address problem: Possibly secondary to the seizure disorder. Will monitor mental status. (4) DVT prophylaxis Current Visit: Yes Status: Acute Plan to address problem: Patient placed on subcutaneous heparin. (5) Full code status Current Visit: Yes Status: Acute Discharge planning issues Family refuses JENNA and lumbar puncture and other tests They want the patient to be transferred to [facility] where she goes general for further work-up for rule out post herpetic encephalitis Subjective Date of service: 09/28/19 Principal diagnosis: Seizure disorder Interval history: 59-year-old -Macedonian female with known history of schizoaffective disorder and seizure disorder brought in by EMS today with complaint of seizures. Most of the history was gotten from the emergency room physician as patient could not give any history.Patient is currently a resident of [facility]. Patient was said to have had about 6 episodes of seizures today 3 of which were witnessed by EMS prior to arrival in the emergency room. She was found to be confused upon arrival in the emergency room. Work-up in the emergency room including CT scan of the head has been unremarkable. Patient has been started on Keppra. Objective - Constitutional Vitals: Vital Signs - 12hr 09/28/19 09/28/19 09/28/19 07:41 09:00 11:29 Temperature 97.9 F 97.5 F L Pulse Rate 86 80 79 Respiratory 20 20 Rate Blood Pressure 135/83 153/82 Blood Pressure [Left] O2 Sat by Pulse 97 95 Oximetry 09/28/19 15:00 Temperature 97.5 F L Pulse Rate 79 Respiratory 20 Rate Blood Pressure Blood Pressure 153/87 [Left] O2 Sat by Pulse 95 Oximetry General appearance: Present: no acute distress, well-nourished - EENT Eyes: PERRL, EOM intact ENT: hearing intact, clear oral mucosa Ears: bilateral: normal - Neck Neck: supple, normal ROM - Respiratory Respiratory effort: normal Respiratory: bilateral: CTA - Breasts Breasts: normal - Cardiovascular Heart rate: 78 Rhythm: regular Heart Sounds: Present: S1 & S2. Absent: gallop, rub Extremities: pulses intact, No edema, normal color, Full ROM - Gastrointestinal General gastrointestinal: Present: soft, non-tender, non-distended, normal bowel sounds - Genitourinary Female genitourinary: normal - Integumentary Integumentary: clear, warm, dry - Musculoskeletal Musculoskeletal: 1, strength equal bilaterally - Neurologic Neurologic: moves all extremities - Psychiatric Psychiatric: memory intact, appropriate mood/affect, intact judgment & insight - Labs CBC & Chem 7: 09/29/19 14:46 09/29/19 14:46
[2019-09-28] MEDS: traZODone 100 MG TAB PO SCH (22:17)
[2019-09-28] MEDS: DOXEPIN 25 MG CAP PO SCH (22:18)
[2019-09-29] MEDS: HEPARIN 5,000 UNIT/1 ML VIAL SUB-Q SCH ×3 (06:29→22:50)
[2019-09-29] MEDS: levETIRAcetam 500 MG TAB PO SCH ×2 (11:28→22:50)
[2019-09-29] MEDS: POTASSIUM CHLORIDE ER 20 MEQ TAB PO SCH (11:28)
[2019-09-29] MEDS: hydroCHLOROthiazide 25 MG TAB PO SCH (11:28)
[2019-09-29] MEDS: ASPIRIN 325 MG TAB PO SCH (11:29)
[2019-09-29] MEDS: OXYBUTYNIN 5 MG TAB PO SCH ×2 (11:29→22:50)
[2019-09-29 15:47] LABS: Hematocrit 42.1 % (30.3-42.9); Hemoglobin 13.7 gm/dl (10.1-14.3); Mean Corpuscular HGB Conc 33 % (30-34); Mean Corpuscular Volume 89 fl (79-97); Red Blood Count 4.76 M/mm3 (3.65-5.03); Red Cell Distribution Width 13.7 % (13.2-15.2)
[2019-09-29 15:49] LABS: Alanine Aminotransferase 17 units/L (7-56); Albumin 3.2 g/dL (3.9-5); BUN/Creatinine Ratio 23; Blood Urea Nitrogen 18 mg/dL (7-17); Hemolysis Index 43; Platelet Count 412 K/mm3 (140-440)
[2019-09-29 16:29] LABS: Platelet Clumps Few; RBC Morphology Normal; Total Cells Counted 100
[2019-09-29] MEDS: DOXEPIN 25 MG CAP PO SCH (22:50)
[2019-09-29] MEDS: traZODone 100 MG TAB PO SCH (22:50)
--- NOTE | 2019-09-29 23:22 | Progress Note ---
Assessment and Plan Day #2 09/24/2019 Patient continues to have unilateral seizures on the right side Also altered September 25, 2019 no further seizures 09/26/2019 waiting for placement to acute inpatient psychiatric facility (1) Seizures Current Visit: Yes Status: Acute Plan to address problem: Patient started on Keppra and placed on seizure precautions. Neurology consult appreciated Patient stable to go to [facility] Per neurology "MRI brain- showing bifrontal frontal and left frontal ischemia. only gyrus is involved. also could be encephalitis. differntial includes , changes may also occur post seizure. ct brain- normal. plan- JENNA would need to be done.Echo will be done first. LP- cell count w diff, glucose, protein, and HSV pcr. cta head and neck. may need loop monitoring. " Family refuses all the tests and want the patient to be transferred to [facility] which he usually goes Working on transfer to [facility] continue keppra 1000 mg bid. asa 325 mg q day and lipitor 40 mg q hs. permissive hypertension. thanks. " (2) History of bipolar disorder Current Visit: Yes Status: Acute Plan to address problem: We will resume routine home medications once patient able to tolerate oral intake. Patient stable to go to [facility] Patient more alert and oriented (3) Confusion Current Visit: Yes Status: Acute Plan to address problem: Possibly secondary to the seizure disorder. Will monitor mental status. (4) DVT prophylaxis Current Visit: Yes Status: Acute Plan to address problem: Patient placed on subcutaneous heparin. (5) Full code status Current Visit: Yes Status: Acute Discharge planning issues Family refuses JENNA and lumbar puncture and other tests They want the patient to be transferred to [facility] where she goes general for further work-up for rule out post herpetic encephalitis Subjective Date of service: 09/29/19 Principal diagnosis: Seizure disorder Interval history: 59-year-old -Palestinian female with known history of schizoaffective disorder and seizure disorder brought in by EMS today with complaint of seizures. Most of the history was gotten from the emergency room physician as patient could not give any history.Patient is currently a resident of [facility]. Patient was said to have had about 6 episodes of seizures today 3 of which were witnessed by EMS prior to arrival in the emergency room. She was found to be confused upon arrival in the emergency room. Work-up in the emergency room including CT scan of the head has been unremarkable. Patient has been started on Keppra. Objective - Constitutional Vitals: Vital Signs - 12hr 09/29/19 09/29/19 09/29/19 11:37 12:00 17:00 Temperature 98.3 F Pulse Rate 86 88 Respiratory 18 Rate Blood Pressure 147/86 O2 Sat by Pulse 96 Oximetry 09/29/19 19:52 Temperature 98.3 F Pulse Rate 93 H Respiratory 20 Rate Blood Pressure 148/82 O2 Sat by Pulse 94 Oximetry General appearance: Present: no acute distress, well-nourished - EENT Eyes: PERRL, EOM intact ENT: hearing intact, clear oral mucosa Ears: bilateral: normal - Neck Neck: supple, normal ROM - Respiratory Respiratory effort: normal Respiratory: bilateral: CTA - Breasts Breasts: normal - Cardiovascular Heart rate: 78 Rhythm: regular Heart Sounds: Present: S1 & S2. Absent: gallop, rub Extremities: pulses intact, No edema, normal color, Full ROM - Gastrointestinal General gastrointestinal: Present: soft, non-tender, non-distended, normal bowel sounds - Genitourinary Female genitourinary: normal - Integumentary Integumentary: clear, warm, dry - Musculoskeletal Musculoskeletal: 1, strength equal bilaterally - Neurologic Neurologic: moves all extremities - Psychiatric Psychiatric: memory intact, appropriate mood/affect, intact judgment & insight - Labs CBC & Chem 7: 09/29/19 14:46 09/29/19 14:46 Labs: Abnormal lab results 09/29/19 09/29/19 Range/Units 14:46 14:46 WBC 15.2 H (4.5-11.0) K/mm3 Monocytes % (Manual) 9.0 H (0.0-7.3) % Seg Neutrophils # Man 10.2 H (1.8-7.7) K/mm3 Monocytes # (Manual) 1.4 H (0.0-0.8) K/mm3 Basophils # (Manual) 0.2 H (0.0-0.1) K/mm3 Sodium 134 L (137-145) mmol/L Chloride 97.9 L (98-107) mmol/L Carbon Dioxide 21 L (22-30) mmol/L BUN 18 H (7-17) mg/dL Glucose 188 H (65-100) mg/dL Albumin 3.2 L (3.9-5) g/dL
[2019-09-30] MEDS: HEPARIN 5,000 UNIT/1 ML VIAL SUB-Q SCH ×3 (06:51→22:19)
[2019-09-30] MEDS: levETIRAcetam 500 MG TAB PO SCH ×2 (10:27→22:19)
[2019-09-30] MEDS: ASPIRIN 325 MG TAB PO SCH (10:27)
[2019-09-30] MEDS: POTASSIUM CHLORIDE ER 20 MEQ TAB PO SCH (10:27)
[2019-09-30] MEDS: OXYBUTYNIN 5 MG TAB PO SCH ×2 (10:27→22:20)
[2019-09-30] MEDS: hydroCHLOROthiazide 25 MG TAB PO SCH (10:27)
--- NOTE | 2019-09-30 19:35 | Progress Note ---
Assessment and Plan Day #2 09/24/2019 Patient continues to have unilateral seizures on the right side Also altered September 25, 2019 no further seizures 09/26/2019 waiting for placement to acute inpatient psychiatric facility 09/30/2019 Had extensive discussion with the family with both the brother and the sister Family is agreed to take her home but they want her to become stronger Family does not want [facility] facility They want home health with physical therapy No benefit of going to [place] as the patient is more alert and oriented and talking on phone (1) Seizures Current Visit: Yes Status: Acute Plan to address problem: Patient started on Keppra and placed on seizure precautions. Neurology consult appreciated Patient stable to go to [facility] Per neurology "MRI brain- showing bifrontal frontal and left frontal ischemia. only gyrus is involved. also could be encephalitis. differntial includes , changes may also occur post seizure. ct brain- normal. plan- JENNA would need to be done.Echo will be done first. LP- cell count w diff, glucose, protein, and HSV pcr. cta head and neck. may need loop monitoring. " Family refuses all the tests and want the patient to be transferred to [facility] which he usually goes Working on transfer to [facility] continue keppra 1000 mg bid. asa 325 mg q day and lipitor 40 mg q hs. permissive hypertension. thanks. " (2) History of bipolar disorder Current Visit: Yes Status: Acute Plan to address problem: We will resume routine home medications once patient able to tolerate oral intake. Patient stable to go to [facility] (3) Confusion Current Visit: Yes Status: Acute Plan to address problem: Possibly secondary to the seizure disorder. Will monitor mental status. (4) DVT prophylaxis Current Visit: Yes Status: Acute Plan to address problem: Patient placed on subcutaneous heparin. (5) Full code status Current Visit: Yes Status: Acute Discharge planning issues Family refuses JENNA and lumbar puncture and other tests They want the patient to be transferred to [facility] where she goes general for further work-up for rule out post herpetic encephalitis Subjective Date of service: 09/30/19 Principal diagnosis: Seizure disorder Interval history: 59-year-old -Lao female with known history of schizoaffective disorder and seizure disorder brought in by EMS today with complaint of seizures. Most of the history was gotten from the emergency room physician as patient could not give any history.Patient is currently a resident of [facility]. Patient was said to have had about 6 episodes of seizures today 3 of which were witnessed by EMS prior to arrival in the emergency room. She was found to be confused upon arrival in the emergency room. Work-up in the emergency room including CT scan of the head has been unremarkable. Patient has been started on Keppra. Patient more alert and oriented Had a long discussion with the family Objective - Constitutional Vitals: Vital Signs - 12hr 09/30/19 09/30/19 09/30/19 08:00 09:00 10:00 Temperature 98.7 F Pulse Rate 87 91 H Pulse Rate [ 87 Dorsalis Pedis] Pulse Rate [ 87 Left Radial] Pulse Rate [ 87 Right Radial] Respiratory 20 19 Rate Blood Pressure 110/67 O2 Sat by Pulse 96 98 Oximetry 09/30/19 09/30/19 09/30/19 10:26 12:00 16:38 Temperature 98.9 F Pulse Rate 88 91 H 90 Pulse Rate [ Dorsalis Pedis] Pulse Rate [ Left Radial] Pulse Rate [ Right Radial] Respiratory 19 Rate Blood Pressure 127/87 119/79 O2 Sat by Pulse 97 97 Oximetry General appearance: Present: no acute distress, well-nourished - EENT Eyes: PERRL, EOM intact ENT: hearing intact, clear oral mucosa Ears: bilateral: normal - Neck Neck: supple, normal ROM - Respiratory Respiratory effort: normal Respiratory: bilateral: CTA - Breasts Breasts: normal - Cardiovascular Rhythm: regular Heart Sounds: Present: S1 & S2. Absent: gallop, rub Extremities: pulses intact, No edema, normal color, Full ROM - Gastrointestinal General gastrointestinal: Present: soft, non-tender, non-distended, normal bowel sounds - Genitourinary Female genitourinary: normal - Integumentary Integumentary: clear, warm, dry - Musculoskeletal Musculoskeletal: 1, strength equal bilaterally - Neurologic Neurologic: moves all extremities - Psychiatric Psychiatric: memory intact, appropriate mood/affect, intact judgment & insight - Labs CBC & Chem 7: 09/29/19 14:46 09/29/19 14:46
[2019-09-30] MEDS: traZODone 100 MG TAB PO SCH (22:20)
[2019-09-30] MEDS: DOXEPIN 25 MG CAP PO SCH (22:20)
--- NOTE | 2019-10-01 09:56 | Discharge Summary ---
Providers - Providers Date of Admission: 09/23/19 00:36 Date of discharge: 10/04/19 Attending physician: ELYSIA IBARRA 09/23/19 02:09 Consult to Physician [CONS] Routine Comment: Consulting Provider: LETI BANSAL Physician Instructions: Reason For Exam: SEIZURE DISORDER 09/24/19 16:34 Consult to Mental Health [CONS] Urgent Reason For Exam: psychosis 09/29/19 11:08 Physical Therapy Evaluation and Treat [CONS] Urgent Comment: Reason For Exam: PT.eval and treat, starting today Mode of Transport?: [place] 09/29/19 11:10 Occupational Therapy Evaluate and Treat [CONS] Urgent Comment: Reason For Exam: OT eval and treat ,start today. Primary care physician: BELLSTAFF Hospitalization Condition: Fair Hospital course: Subjective Date of service: 10/01/19 Principal diagnosis: Seizure disorder Interval history: 59-year-old -Cambodian female with known history of schizoaffective disorder and seizure disorder brought in by EMS today with complaint of seizures. Most of the history was gotten from the emergency room physician as patient could not give any history.Patient is currently a resident of [facility]. Patient was said to have had about 6 episodes of seizures today 3 of which were witnessed by EMS prior to arrival in the emergency room. She was found to be confused upon arrival in the emergency room. Work-up in the emergency room including CT scan of the head has been unremarkable. Patient has been started on Keppra. Patient more alert and oriented Had a long discussion with the family Assessment and Plan Day #2 09/24/2019 Patient continues to have unilateral seizures on the right side Also altered September 25, 2019 no further seizures 09/26/2019 waiting for placement to acute inpatient psychiatric facility 09/30/2019 Had extensive discussion with the family with both the brother and the sister Family is agreed to take her home but they want her to become stronger Family does not want long-term facility They want home health with physical therapy No benefit of going to [place] as the patient is more alert and oriented and talking on phone (1) Seizures Current Visit: Yes Status: Acute Plan to address problem: Patient started on Keppra and placed on seizure precautions. Neurology consult appreciated Patient stable to go to [facility] Per neurology "MRI brain- showing bifrontal frontal and left frontal ischemia. only gyrus is involved. also could be encephalitis. differntial includes , changes may also occur post seizure. ct brain- normal. plan- JENNA would need to be done.Echo will be done first. LP- cell count w diff, glucose, protein, and HSV pcr. cta head and neck. may need loop monitoring. " Family refuses all the tests and want the patient to be transferred to [facility] which he usually goes Working on transfer to [facility] continue keppra 1000 mg bid. asa 325 mg q day and lipitor 40 mg q hs. permissive hypertension. thanks. " (2) History of bipolar disorder Current Visit: Yes Status: Acute Plan to address problem: We will resume routine home medications once patient able to tolerate oral intake. Patient stable to go to [facility] (3) Confusion Current Visit: Yes Status: Acute Plan to address problem: Possibly secondary to the seizure disorder. Will monitor mental status. (4) DVT prophylaxis Current Visit: Yes Status: Acute Plan to address problem: Patient placed on subcutaneous heparin. (5) Full code status Current Visit: Yes Status: Acute Discharge planning issues Family refuses JENNA and lumbar puncture and other tests They want the patient to be transferred to [facility] where she goes general for further work-up for rule out post herpetic encephalitis Disposition: DC- TO HOME OR SELFCARE - Discharge Diagnoses (1) Seizure disorder Status: Acute Comment: Patient to continue Keppra (2) Bipolar disorder Status: Acute Comment: Improving more alert and oriented (3) Acute encephalopathy Status: Acute Comment: Improving (4) Morbid obesity Status: Chronic Comment: Needs to lose a lot of weight Home physical therapy Core Measure Documentation - Palliative Care Palliative Care/ Comfort Measures: Not Applicable - Core Measures Any of the following diagnoses?: none Exam - Constitutional Vitals: Temp Pulse Resp BP Pulse Ox 99.3 F 90 20 132/62 97 10/01/19 08:10 10/01/19 08:10 10/01/19 08:10 10/01/19 08:10 10/01/19 08:10 General appearance: Present: no acute distress, well-nourished - EENT Eyes: Present: PERRL ENT: hearing intact, clear oral mucosa - Neck Neck: Present: supple, normal ROM - Respiratory Respiratory effort: normal Respiratory: bilateral: CTA - Cardiovascular Heart rate: 78 Rhythm: regular Heart Sounds: Present: S1 & S2. Absent: rub, click - Extremities Extremities: pulses symmetrical, No edema Peripheral Pulses: within normal limits - Abdominal General gastrointestinal: Present: soft, non-tender, non-distended, normal bowel sounds Female genitourinary: Present: normal - Integumentary Integumentary: Present: clear, warm, dry - Musculoskeletal Musculoskeletal: gait normal, strength equal bilaterally - Psychiatric Psychiatric: appropriate mood/affect, intact judgment & insight - Neurologic Neurologic: CNII-XII intact, moves all extremities Plan Activity: advance as tolerated Diet: low fat, low cholesterol, low salt, diabetic Follow up with: PRIMARY CARE,MD [Primary Care Provider] - 7 Days Prescriptions: Aspirin 81 mg PO QDAY #[address] [Depakote Dr] 500 mg PO BID #60 Oxybutynin [Ditropan] 5 mg PO BID #60 tablet levETIRAcetam [Keppra TAB] 1,000 mg PO BID #60 tablet Doxepin [SINEquan] 25 mg PO QHS #30 capsule
[2019-10-01] MEDS: ASPIRIN 325 MG TAB PO SCH (10:21)
[2019-10-01] MEDS: hydroCHLOROthiazide 25 MG TAB PO SCH (10:21)
[2019-10-01] MEDS: levETIRAcetam 500 MG TAB PO SCH ×2 (10:22→23:09)
[2019-10-01] MEDS: POTASSIUM CHLORIDE ER 20 MEQ TAB PO SCH (10:23)
[2019-10-01] MEDS: OXYBUTYNIN 5 MG TAB PO SCH ×2 (10:23→23:10)
[2019-10-01] MEDS: HEPARIN 5,000 UNIT/1 ML VIAL SUB-Q SCH ×2 (15:05→23:11)
[2019-10-01] MEDS: ACETAMINOPHEN 325 MG TAB PO PRN (15:12)
--- NOTE | 2019-10-01 22:21 | Progress Note ---
Assessment and Plan Day #2 09/24/2019 Patient continues to have unilateral seizures on the right side Also altered September 25, 2019 no further seizures 09/26/2019 waiting for placement to acute inpatient psychiatric facility 09/30/2019 Had extensive discussion with the family with both the brother and the sister Family is agreed to take her home but they want her to become stronger Family does not want jail facility They want home health with physical therapy No benefit of going to [place] as the patient is more alert and oriented and talking on phone (1) Seizures Current Visit: Yes Status: Acute Plan to address problem: Patient started on Keppra and placed on seizure precautions. Neurology consult appreciated Patient stable to go to [facility] Family refuses all the tests Patient more alert and oriented Per neurology "MRI brain- showing bifrontal frontal and left frontal ischemia. only gyrus is involved. also could be encephalitis. differntial includes , changes may also occur post seizure. ct brain- normal. plan- JENNA would need to be done.Echo will be done first. LP- cell count w diff, glucose, protein, and HSV pcr. cta head and neck. may need loop monitoring. " Family refuses all the tests and want the patient to be transferred to [facility] which he usually goes Working on transfer to [facility] continue keppra 1000 mg bid. asa 325 mg q day and lipitor 40 mg q hs. permissive hypertension. thanks. " (2) History of bipolar disorder Current Visit: Yes Status: Acute Plan to address problem: We will resume routine home medications once patient able to tolerate oral intake. Patient stable to go to [facility] Patient more alert and oriented Unable to get out of the bed (3) Confusion Current Visit: Yes Status: Acute Plan to address problem: Possibly secondary to the seizure disorder. Will monitor mental status. (4) DVT prophylaxis Current Visit: Yes Status: Acute Plan to address problem: Patient placed on subcutaneous heparin. (5) Full code status Current Visit: Yes Status: Acute Patient more alert and oriented Does not radiate transfer to [place] There is no further work-up that can be done Patient is stable for discharge home - Patient Problems (1) Seizure disorder Current Visit: Yes Status: Acute (2) Bipolar disorder Current Visit: Yes Status: Acute (3) Acute encephalopathy Current Visit: Yes Status: Acute Plan to address problem: Improved (4) Morbid obesity Current Visit: Yes Status: Chronic Plan to address problem: Patient consult May need bariatric surgery for better lifestyle She is only 15 years old (5) Discharge planning issues Current Visit: Yes Status: Acute Plan to address problem: Tried discharging home Family states that there are no bedrooms on the ground floor Patient is morbidly obese patient can be discharged patient can be transported upstairs We will discuss with case management Another option is going to jail facility and get stronger in 6 weeks and moved back to home Subjective Date of service: 10/01/19 Principal diagnosis: Seizure disorder Interval history: 59-year-old -Northern Irish female with known history of schizoaffective disorder and seizure disorder brought in by EMS today with complaint of seizures. Most of the history was gotten from the emergency room physician as patient could not give any history.Patient is currently a resident of [facility]. Patient was said to have had about 6 episodes of seizures today 3 of which were witnessed by EMS prior to arrival in the emergency room. She was found to be confused upon arrival in the emergency room. Work-up in the emergency room including CT scan of the head has been unremarkable. Patient has been started on Keppra. Patient more alert and oriented Had a long discussion with the family Objective - Constitutional Vitals: Vital Signs - 12hr 10/01/19 10/01/19 10/01/19 11:28 12:00 16:14 Temperature 100.2 F H 98.5 F Pulse Rate 88 88 86 Respiratory 20 18 18 Rate Blood Pressure 109/81 123/68 O2 Sat by Pulse 92 98 96 Oximetry General appearance: Present: no acute distress, well-nourished - EENT Eyes: PERRL, EOM intact ENT: hearing intact, clear oral mucosa Ears: bilateral: normal - Neck Neck: supple, normal ROM - Respiratory Respiratory effort: normal Respiratory: bilateral: CTA - Breasts Breasts: normal - Cardiovascular Rhythm: regular Heart Sounds: Present: S1 & S2. Absent: gallop, rub Extremities: pulses intact, No edema, normal color, Full ROM - Gastrointestinal General gastrointestinal: Present: soft, non-tender, non-distended, normal bowel sounds - Genitourinary Female genitourinary: normal - Integumentary Integumentary: clear, warm, dry - Musculoskeletal Musculoskeletal: 1, strength equal bilaterally - Neurologic Neurologic: moves all extremities - Psychiatric Psychiatric: memory intact, appropriate mood/affect, intact judgment & insight - Labs CBC & Chem 7: 09/29/19 14:46 09/29/19 14:46
[2019-10-01] MEDS: DOXEPIN 25 MG CAP PO SCH (23:10)
[2019-10-01] MEDS: traZODone 100 MG TAB PO SCH (23:10)
[2019-10-02] MEDS: HEPARIN 5,000 UNIT/1 ML VIAL SUB-Q SCH ×4 (05:58→21:35)
[2019-10-02] MEDS: levETIRAcetam 500 MG TAB PO SCH ×2 (09:27→21:35)
[2019-10-02] MEDS: hydroCHLOROthiazide 25 MG TAB PO SCH (09:27)
[2019-10-02] MEDS: ASPIRIN 325 MG TAB PO SCH (09:27)
[2019-10-02] MEDS: OXYBUTYNIN 5 MG TAB PO SCH ×2 (09:28→21:35)
[2019-10-02] MEDS: POTASSIUM CHLORIDE ER 20 MEQ TAB PO SCH (09:28)
--- NOTE | 2019-10-02 13:39 | Consultation ---
History of Present Illness - Reason for Consult Consult date: 10/02/19 Reason for consult: AMS - Chief Complaint Chief complaint: ams, seizure - History of Present Psychiatric Illness The patient's medical record was reviewed and the patient's progress was discussed with the nursing staff. The sitter at bedside states the patient has been communicating, calm and cooperative for her. Amarilis Lei is a 59y/o female patient who was brought to the ER with a initial complaint of seizure. During my interview with the patient today she is sitting up with bed. A sitter is with her assisting to feed her. The patient is a/o x 2. She is reluctant to cooperative. She is forgetful and a poor historian. She tells me she's feeling "fine" when asked. She denies SI/HI and ever being. The patient denies hallucinations of any kind, but states, she "used to hear voices." She denies at present.The patient denies any illicit drug use, alcohol or nicotine use. She says, "I'm answering your questions but everybody keeps asking me that." The patient was unable to recall her medications when asked. Called the number listed in the chart at [phone] to speak with sister. No one picked up and was unable to leave a message. Record states the family is wanting the patient home with HH and did not want any medications started. PAST PSYCHIATRIC HISTORY: Diagnoses: Schizophrenia Suicide attempts or Self-harm behavior: Denies Prior psychiatric hospitalizations: A long time ago Substance Abuse history: Denies Previous psychiatric medications tried: Could not recall Outpatient treatment: Yes PAST MEDICAL HISTORY: None reported Family Psychiatric History: None reported or documented SOCIAL HISTORY Marital Status: Living Arrangements: Alone Employment Status: Disabled Access to guns/weapons: Denies Education: History of Abuse: Denies Legal History: none reported REVIEW OF SYSTEMS Constitutional: Negative for weight loss ENT: Negative for stridor Respiratory: Negative for cough or hemoptysis All other systems reviewed and are negative MENTAL STATUS EXAMINATION General Appearance: Dressed appropriately Behavior: Calm, reluctant to cooperate Mood: "fine" Affect and affective range: Congruent with stated mood Thought Process: Goal directed Speech: Normal rate and volume Thought Content: Suicidal Ideation: Denies SI Homicidal Ideation: Denies HI Hallucinations: Denies Delusions: Denies Insight and Judgment: Limited Memory/Cognition: Limited Attention: Normal ASSESSMENT Altered Mental Status RECOMMENDATIONS Continue home medications Continue home meds Sitter: Defer to primary Medical: per primary Disposition: Do not recommend acute inpatient psychiatric treatment at this time. The patient may discharge home with family once medically clear. Will sign off. Thank you for this consult. Please call with any questions or concerns. Medications and Allergies Allergies Allergy/AdvReac Type Severity Reaction Status Date / Time No Known Allergies Allergy Verified 09/23/19 02:20 Home Medications Medication Instructions Recorded Confirmed Last Taken Type Doxepin HCl 25 mg PO HS 09/23/19 09/23/19 Unknown History Paliperidone Palmitate [Invega 156 mg IM QMONTH 09/23/19 09/23/19 Unknown History Sustenna] Potassium Chloride [K-Dur] 20 meq PO DAILY 09/23/19 09/23/19 Unknown History Trazodone HCl 100 mg PO HS 09/23/19 09/23/19 Unknown History hydrOXYzine HCL 50 mg PO QHS 09/23/19 09/23/19 Unknown History levETIRAcetam [Keppra TAB] 500 mg PO BID 09/23/19 09/23/19 Unknown History hydroCHLOROthiazide [HCTZ] 25 mg PO QDAY 09/27/19 09/27/19 Unknown History Aspirin 81 mg PO QDAY #100 tablet 10/01/[address] [Judd Parada] 500 mg PO BID #60 10/01/19 Unknown Rx Doxepin [SINEquan] 25 mg PO QHS #30 capsule 10/01/19 Unknown Rx Oxybutynin [Ditropan] 5 mg PO BID #60 tablet 10/01/19 Unknown Rx levETIRAcetam [Keppra TAB] 1,000 mg PO BID #60 tablet 10/01/19 Unknown Rx Active Meds: Active Medications Acetaminophen (Tylenol) 650 mg PO Q4H PRN PRN Reason: Pain MILD(1-3)/Fever >100.5/NICHOLAS Last Admin: 10/01/19 15:12 Dose: 650 mg Documented by: Aspirin (Aspirin) 325 mg PO QDAY [facility] Last Admin: 10/02/19 09:27 Dose: 325 mg Documented by: Atorvastatin Calcium (Lipitor) 40 mg PO QHS [facility] Last Admin: 10/01/19 23:10 Dose: 40 mg Documented by: Doxepin HCl (Sinequan) 25 mg PO QHS [facility] Last Admin: 10/01/19 23:10 Dose: 25 mg Documented by: Heparin Sodium (Porcine) (Heparin) 5,000 unit SUB-Q Q8HR [facility] Last Admin: 10/02/19 05:58 Dose: 5,000 unit Documented by: Hydralazine HCl (Apresoline) 10 mg IV Q4HR PRN PRN Reason: BP > 150/90 Last Admin: 09/28/19 03:02 Dose: 10 mg Documented by: Hydrochlorothiazide (Hctz) 25 mg PO QDAY [facility] Last Admin: 10/02/19 09:27 Dose: 25 mg Documented by: Hydroxyzine Pamoate (Vistaril) 50 mg PO QHS [facility] Last Admin: 10/01/19 23:09 Dose: 50 mg Documented by: Sodium Chloride (Nacl 0.9% 1000 Ml) 1,000 mls @ 75 mls/hr IV DIRECT [facility] Last Admin: 09/27/19 09:42 Dose: 75 mls/hr Documented by: Levetiracetam (Keppra) 1,000 mg PO BID [facility] Last Admin: 10/02/19 09:27 Dose: 1,000 mg Documented by: Lorazepam (Ativan) 1 mg IV Q3H PRN PRN Reason: Seizures Last Admin: 09/27/19 22:46 Dose: 1 mg Documented by: Magnesium Hydroxide (Milk Of Magnesia) 30 ml PO Q4H PRN PRN Reason: Constipation Ondansetron HCl (Zofran) 4 mg IV Q8H PRN PRN Reason: Nausea And Vomiting Oxybutynin Chloride (Ditropan) 5 mg PO BID [facility] Last Admin: 10/02/19 09:28 Dose: 5 mg Documented by: Potassium Chloride (K-Dur) 20 meq PO DAILY [facility] Last Admin: 10/02/19 09:28 Dose: 20 meq Documented by: Sodium Chloride (Sodium Chloride Flush Syringe 10 Ml) 10 ml IV BID [facility] Last Admin: 10/02/19 09:28 Dose: 10 ml Documented by: Sodium Chloride (Sodium Chloride Flush Syringe 10 Ml) 10 ml IV PRN PRN PRN Reason: LINE FLUSH Last Admin: 09/28/19 03:03 Dose: 10 ml Documented by: Trazodone HCl (Desyrel) 100 mg PO [facility] Last Admin: 10/01/19 23:10 Dose: 100 mg Documented by: Mental Status Exam - Vital signs Last Vital Signs Temp 98.7 F 10/02/19 12:00 Pulse 81 10/02/19 12:00 Resp 20 10/02/19 12:00 BP 150/83 10/02/19 12:00 Pulse Ox 93 10/02/19 12:00 Results Result Diagrams: 09/29/19 14:46 09/29/19 14:46 All other labs normal.
[2019-10-02] MEDS: DOXEPIN 25 MG CAP PO SCH (21:35)
[2019-10-02] MEDS: traZODone 100 MG TAB PO SCH (21:39)
[2019-10-03] MEDS: HEPARIN 5,000 UNIT/1 ML VIAL SUB-Q SCH ×3 (06:03→22:25)
[2019-10-03] MEDS: ASPIRIN 325 MG TAB PO SCH (10:17)
[2019-10-03] MEDS: POTASSIUM CHLORIDE ER 20 MEQ TAB PO SCH (10:17)
[2019-10-03] MEDS: hydroCHLOROthiazide 25 MG TAB PO SCH (10:17)
[2019-10-03] MEDS: OXYBUTYNIN 5 MG TAB PO SCH ×2 (10:17→22:26)
[2019-10-03] MEDS: levETIRAcetam 500 MG TAB PO SCH ×2 (10:17→22:26)
[2019-10-03] MEDS: traZODone 100 MG TAB PO SCH (22:26)
[2019-10-03] MEDS: DOXEPIN 25 MG CAP PO SCH (22:26)
--- NOTE | 2019-10-03 22:43 | Progress Note ---
Assessment and Plan Day #2 09/24/2019 Patient continues to have unilateral seizures on the right side Also altered September 25, 2019 no further seizures 09/26/2019 waiting for placement to acute inpatient psychiatric facility 09/30/2019 Had extensive discussion with the family with both the brother and the sister Family is agreed to take her home but they want her to become stronger Family does not want [facility] facility They want home health with physical therapy No benefit of going to [place] as the patient is more alert and oriented and talking on phone 10/03/2019 Patient alert and oriented x3 Able to lift her legs She needs a rehab (1) Seizures Current Visit: Yes Status: Acute Plan to address problem: Patient started on Keppra and placed on seizure precautions. Neurology consult appreciated Patient stable to go to [facility] Family refuses all the tests Patient more alert and oriented No further seizures No further work-up needed (2) History of bipolar disorder Current Visit: Yes Status: Acute Plan to address problem: We will resume routine home medications once patient able to tolerate oral intake. Patient stable to go to [facility] Patient more alert and oriented Patient has debility (3) Confusion Current Visit: Yes Status: Acute Plan to address problem: Confusion has improved (4) DVT prophylaxis Current Visit: Yes Status: Acute Plan to address problem: Patient placed on subcutaneous heparin. (5) Full code status Current Visit: Yes Status: Acute Patient more alert and oriented Patient is ready for discharge family says that they want her home but they say that they do not have a bedroom on the ground floor Will discuss with case management about options versus [facility] facility or home with physical therapy and home health If physical therapy can get her out of bed to chair tomorrow patient to be discharged home - Patient Problems (1) Seizure disorder Current Visit: Yes Status: Acute (2) Bipolar disorder Current Visit: Yes Status: Acute (3) Acute encephalopathy Current Visit: Yes Status: Acute (4) Morbid obesity Current Visit: Yes Status: Chronic Subjective Date of service: 10/02/19 Principal diagnosis: Seizure disorder Interval history: 59-year-old -Turkmen female with known history of schizoaffective disorder and seizure disorder brought in by EMS today with complaint of seizures. Most of the history was gotten from the emergency room physician as ishan cruz could not give any history.Patient is currently a resident of [facility]. Patient was said to have had about 6 episodes of seizures today 3 of which were witnessed by EMS prior to arrival in the emergency room. She was found to be confused upon arrival in the emergency room. Work-up in the emergency room including CT scan of the head has been unremarkable. Patient has been started on Keppra. Patient more alert and oriented Had a long discussion with the family They are willing to take her back to the house Their only problem is that the all the bedrooms are upstairs and not any bedroom in the ground floor level They are willing to put her on the couch Objective - Constitutional Vitals: Vital Signs - 12hr 10/03/19 10/03/19 10/03/19 11:44 15:54 17:16 Temperature 97.8 F 98.4 F Pulse Rate 86 86 63 Respiratory 20 20 Rate Blood Pressure 137/79 132/73 O2 Sat by Pulse 94 91 Oximetry 10/03/19 21:11 Temperature 98.3 F Pulse Rate 87 Respiratory 20 Rate Blood Pressure 130/74 O2 Sat by Pulse 94 Oximetry General appearance: Present: no acute distress, well-nourished - EENT Eyes: PERRL, EOM intact ENT: hearing intact, clear oral mucosa Ears: bilateral: normal - Neck Neck: supple, normal ROM - Respiratory Respiratory effort: normal Respiratory: bilateral: CTA - Breasts Breasts: normal - Cardiovascular Heart rate: 78 Rhythm: regular Heart Sounds: Present: S1 & S2. Absent: gallop, rub Extremities: pulses intact, No edema, normal color, Full ROM - Gastrointestinal General gastrointestinal: Present: soft, non-tender, non-distended, normal bowel sounds - Genitourinary Female genitourinary: normal - Integumentary Integumentary: clear, warm, dry - Musculoskeletal Musculoskeletal: 1, strength equal bilaterally - Neurologic Neurologic: moves all extremities - Psychiatric Psychiatric: memory intact, appropriate mood/affect, intact judgment & insight - Labs CBC & Chem 7: 09/29/19 14:46 09/29/19 14:46
[2019-10-04] MEDS: HEPARIN 5,000 UNIT/1 ML VIAL SUB-Q SCH ×3 (05:35→21:33)
--- NOTE | 2019-10-04 10:19 | Progress Note ---
Assessment and Plan Day #2 09/24/2019 Patient continues to have unilateral seizures on the right side Also altered September 25, 2019 no further seizures 09/26/2019 waiting for placement to acute inpatient psychiatric facility 09/30/2019 Had extensive discussion with the family with both the brother and the sister Family is agreed to take her home but they want her to become stronger Family does not want retirement facility They want home health with physical therapy No benefit of going to [place] as the patient is more alert and oriented and talking on phone 10/02/2019 Patient alert and oriented x3 Able to lift her legs She needs a rehab (1) Seizures Current Visit: Yes Status: Acute Plan to address problem: Patient started on Keppra and placed on seizure precautions. Neurology consult appreciated Patient stable to go to [facility] Family refuses all the tests Patient more alert and oriented No further seizures No further work-up needed (2) History of bipolar disorder Current Visit: Yes Status: Acute Plan to address problem: We will resume routine home medications once patient able to tolerate oral intake. Patient stable to go to [facility] Patient more alert and oriented Patient has debility (3) Confusion Current Visit: Yes Status: Acute Plan to address problem: Confusion has improved (4) DVT prophylaxis Current Visit: Yes Status: Acute Plan to address problem: Patient placed on subcutaneous heparin. (5) Full code status Current Visit: Yes Status: Acute Patient more alert and oriented Patient is ready for discharge family says that they want her home but they say that they do not have a bedroom on the ground floor Will discuss with case management about options versus retirement facility or home with physical therapy and home health If physical therapy can get her out of bed to chair tomorrow patient to be discharged home Subjective Date of service: 10/02/19 Principal diagnosis: Seizure disorder Interval history: 59-year-old -Senegalese female with known history of schizoaffective disorder and seizure disorder brought in by EMS today with complaint of seizures . Most of the history was gotten from the emergency room physician as patient could not give any history.Patient is currently a resident of [facility]. Patient was said to have had about 6 episodes of seizures today 3 of which were witnessed by EMS prior to arrival in the emergency room. She was found to be confused upon arrival in the emergency room. Work-up in the emergency room including CT scan of the head has been unremarkable. Patient has been started on Keppra. Patient more alert and oriented Had a long discussion with the family They are willing to take her back to the house Their only problem is that the all the bedrooms are upstairs and not any bedroom in the ground floor level They are willing to put her on the couch Objective - Constitutional Vitals: Vital Signs - 12hr 10/03/19 10/04/19 10/04/19 23:51 04:40 07:00 Temperature 98.4 F 98.0 F 97.9 F Pulse Rate 84 84 83 Respiratory 20 18 22 Rate Blood Pressure 114/67 109/69 Blood Pressure 118/73 [Left] O2 Sat by Pulse 93 90 95 Oximetry General appearance: Present: no acute distress, well-nourished - EENT Eyes: PERRL, EOM intact ENT: hearing intact, clear oral mucosa Ears: bilateral: normal - Neck Neck: supple, normal ROM - Respiratory Respiratory effort: normal Respiratory: bilateral: CTA - Breasts Breasts: normal - Cardiovascular Rhythm: regular Heart Sounds: Present: S1 & S2. Absent: gallop, rub Extremities: pulses intact, No edema, normal color, Full ROM - Gastrointestinal General gastrointestinal: Present: soft, non-tender, non-distended, normal bowel sounds - Genitourinary Female genitourinary: normal - Integumentary Integumentary: clear, warm, dry - Musculoskeletal Musculoskeletal: 1, strength equal bilaterally - Neurologic Neurologic: moves all extremities - Psychiatric Psychiatric: memory intact, appropriate mood/affect, intact judgment & insight - Labs CBC & Chem 7: 09/29/19 14:46 09/29/19 14:46
[2019-10-04] MEDS: levETIRAcetam 500 MG TAB PO SCH ×2 (14:20→21:33)
[2019-10-04] MEDS: POTASSIUM CHLORIDE ER 20 MEQ TAB PO SCH (14:20)
[2019-10-04] MEDS: OXYBUTYNIN 5 MG TAB PO SCH ×2 (14:21→21:34)
[2019-10-04] MEDS: ASPIRIN 325 MG TAB PO SCH (14:21)
[2019-10-04] MEDS: hydroCHLOROthiazide 25 MG TAB PO SCH (14:21)
[2019-10-04] MEDS: traZODone 100 MG TAB PO SCH (21:33)
[2019-10-04] MEDS: DOXEPIN 25 MG CAP PO SCH (21:33)
--- NOTE | 2019-10-04 22:30 | Progress Note ---
Assessment and Plan Day #2 09/24/2019 Patient continues to have unilateral seizures on the right side Also altered September 25, 2019 no further seizures 09/26/2019 waiting for placement to acute inpatient psychiatric facility 09/30/2019 Had extensive discussion with the family with both the brother and the sister Family is agreed to take her home but they want her to become stronger Family does not want penitentiary facility They want home health with physical therapy No benefit of going to [place] as the patient is more alert and oriented and talking on phone 10/02/2019 Patient alert and oriented x3 Able to lift her legs She needs a rehab 10/04/2019 Patient is alert and oriented Unable to get out of bed to chair Undergoing physical therapy Will need penitentiary facility with subacute rehab (1) Seizures Current Visit: Yes Status: Acute Plan to address problem: Patient started on Keppra and placed on seizure precautions. Neurology consult appreciated Patient stable to go to [facility] Family refuses all the tests Patient more alert and oriented No further seizures No further work-up needed (2) History of bipolar disorder Current Visit: Yes Status: Acute Plan to address problem: We will resume routine home medications once patient able to tolerate oral intake. Patient stable to go to [facility] Patient more alert and oriented Patient has debility (3) Confusion Current Visit: Yes Status: Acute Plan to address problem: Confusion has improved (4) DVT prophylaxis Current Visit: Yes Status: Acute Plan to address problem: Patient placed on subcutaneous heparin. (5) Full code status Current Visit: Yes Status: Acute Patient more alert and oriented Patient is ready for discharge family says that they want her home but they say that they do not have a bedroom on the ground floor Will discuss with case management about options versus penitentiary facility or home with physical therapy and home health If physical therapy can get her out of bed to chair tomorrow patient to be discharged home Subjective Date of service: 10/04/19 Principal diagnosis: Seizure disorder Interval history: 59-year-old -Liberian female with known history of schizoaffective disorder and seizure disorder brought in by EMS today with complaint of seizures. Most of the history was gotten from the emergency room physician as patient could not give any history.Patient is currently a resident of [facility]. Patient was said to have had about 6 episodes of seizures today 3 of which were witnessed by EMS prior to arrival in the emergency room. She was found to be confused upon arrival in the emergency room. Work-up in the emergency room including CT scan of the head has been unrema rkable. Patient has been started on Keppra. Patient more alert and oriented Had a long discussion with the family They are willing to take her back to the house Their only problem is that the all the bedrooms are upstairs and not any bedroom in the ground floor level They are willing to put her on the couch Family has agreed for penitentiary facility with subacute rehab Patient is unable to get out of bed and walk Objective - Constitutional Vitals: Vital Signs - 12hr 10/04/19 10/04/19 10/04/19 14:00 19:28 21:31 Temperature 97.9 F 98.2 F 97.8 F Pulse Rate 80 114 H 88 Respiratory 20 18 20 Rate Blood Pressure 176/95 119/89 Blood Pressure 109/70 [Left] O2 Sat by Pulse 98 97 95 Oximetry 10/04/19 21:32 Temperature Pulse Rate 83 Respiratory Rate Blood Pressure Blood Pressure [Left] O2 Sat by Pulse 93 Oximetry General appearance: Present: no acute distress, well-nourished - EENT Eyes: PERRL, EOM intact ENT: hearing intact, clear oral mucosa Ears: bilateral: normal - Neck Neck: supple, normal ROM - Respiratory Respiratory effort: normal Respiratory: bilateral: CTA - Breasts Breasts: normal - Cardiovascular Heart rate: 78 Rhythm: regular Heart Sounds: Present: S1 & S2. Absent: gallop, rub Extremities: pulses intact, No edema, normal color, Full ROM - Gastrointestinal General gastrointestinal: Present: soft, non-tender, non-distended, normal bowel sounds - Genitourinary Female genitourinary: normal - Integumentary Integumentary: clear, warm, dry - Musculoskeletal Musculoskeletal: 1, strength equal bilaterally - Neurologic Neurologic: moves all extremities - Psychiatric Psychiatric: memory intact, appropriate mood/affect, intact judgment & insight - Labs CBC & Chem 7: 09/29/19 14:46 09/29/19 14:46
[2019-10-05] MEDS: HEPARIN 5,000 UNIT/1 ML VIAL SUB-Q SCH ×3 (05:25→21:27)
[2019-10-05] MEDS: hydroCHLOROthiazide 25 MG TAB PO SCH (10:49)
[2019-10-05] MEDS: OXYBUTYNIN 5 MG TAB PO SCH ×2 (10:49→21:29)
[2019-10-05] MEDS: ASPIRIN 325 MG TAB PO SCH (10:49)
[2019-10-05] MEDS: POTASSIUM CHLORIDE ER 20 MEQ TAB PO SCH (10:50)
[2019-10-05] MEDS: levETIRAcetam 500 MG TAB PO SCH ×2 (10:50→21:28)
[2019-10-05] MEDS: traZODone 100 MG TAB PO SCH (21:27)
[2019-10-05] MEDS: DOXEPIN 25 MG CAP PO SCH (21:28)
[2019-10-06] MEDS: HEPARIN 5,000 UNIT/1 ML VIAL SUB-Q SCH ×3 (05:14→22:49)
--- NOTE | 2019-10-06 08:03 | Progress Note ---
Assessment and Plan Day #2 09/24/2019 Patient continues to have unilateral seizures on the right side Also altered September 25, 2019 no further seizures 09/26/2019 waiting for placement to acute inpatient psychiatric facility 09/30/2019 Had extensive discussion with the family with both the brother and the sister Family is agreed to take her home but they want her to become stronger Family does not want fpc facility They want home health with physical therapy No benefit of going to [place] as the patient is more alert and oriented and talking on phone 10/02/2019 Patient alert and oriented x3 Able to lift her legs She needs a rehab 10/04/2019 Patient is alert and oriented Unable to get out of bed to chair Undergoing physical therapy Will need fpc facility with subacute rehab 10/05/2019 Patient waiting for placement (1) Seizures Current Visit: Yes Status: Acute Plan to address problem: Patient started on Keppra and placed on seizure precautions. Neurology consult appreciated Patient stable to go to [facility] Family refuses all the tests Patient more alert and oriented No further seizures No further work-up needed (2) History of bipolar disorder Current Visit: Yes Status: Acute Plan to address problem: We will resume routine home medications once patient able to tolerate oral intake. Patient stable to go to [facility] Patient more alert and oriented Patient has debility (3) Confusion Current Visit: Yes Status: Acute Plan to address problem: Confusion has improved (4) DVT prophylaxis Current Visit: Yes Status: Acute Plan to address problem: Patient placed on subcutaneous heparin. (5) Full code status Current Visit: Yes Status: Acute Patient more alert and oriented Patient is ready for discharge family says that they want her home but they say that they do not have a bedroom on the ground floor Will discuss with case management about options versus fpc facility or home with physical therapy and home health If physical therapy can get her out of bed to chair patient to be discharged home Subjective Date of service: 10/05/19 Principal diagnosis: Seizure disorder Interval history: 59-year-old -Serbian female with known history of schizoaffective disorder and seizure disorder brought in by EMS today with complaint of seizures. Most of the history was gotten from the emergency room physician as patient could not give any history.Patient is currently a resident of [facility]. Patient was said to have had about 6 episodes of seizures today 3 of which were witnessed by EMS prior to arrival in the emergency room. She was found to be confused upon arrival in the emergency room. Work-up in the emergency room including CT scan of the head has been unremarkable. Patient has been started on Keppra. Patient more alert and oriented Had a long discussion with the family They are willing to take her back to the house Their only problem is that the all the bedrooms are upstairs and not any bedroom in the ground floor level They are willing to put her on the couch Family has agreed for fpc facility with subacute rehab Patient is unable to get out of bed and walk Objective - Constitutional Vitals: Vital Signs - 12hr 10/05/19 10/06/19 10/06/19 23:28 00:00 03:15 Temperature 98.5 F 98.8 F Pulse Rate 83 83 85 Respiratory 18 18 Rate Blood Pressure 151/60 142/81 O2 Sat by Pulse 93 94 Oximetry General appearance: Present: no acute distress, well-nourished - EENT Eyes: PERRL, EOM intact ENT: hearing intact, clear oral mucosa Ears: bilateral: normal - Neck Neck: supple, normal ROM - Respiratory Respiratory effort: normal Respiratory: bilateral: CTA - Breasts Breasts: normal - Cardiovascular Heart rate: 78 Rhythm: regular Heart Sounds: Present: S1 & S2. Absent: gallop, rub Extremities: pulses intact, No edema, normal color, Full ROM - Gastrointestinal General gastrointestinal: Present: soft, non-tender, non-distended, normal bowel sounds - Genitourinary Female genitourinary: normal - Integumentary Integumentary: clear, warm, dry - Musculoskeletal Musculoskeletal: 1, strength equal bilaterally - Neurologic Neurologic: moves all extremities - Psychiatric Psychiatric: memory intact, appropriate mood/affect, intact judgment & insight - Labs CBC & Chem 7: 09/29/19 14:46 09/29/19 14:46
[2019-10-06] MEDS: OXYBUTYNIN 5 MG TAB PO SCH ×2 (09:03→22:49)
[2019-10-06] MEDS: POTASSIUM CHLORIDE ER 20 MEQ TAB PO SCH (09:03)
[2019-10-06] MEDS: levETIRAcetam 500 MG TAB PO SCH ×2 (09:03→22:49)
[2019-10-06] MEDS: hydroCHLOROthiazide 25 MG TAB PO SCH (09:03)
[2019-10-06] MEDS: ASPIRIN 325 MG TAB PO SCH (09:03)
--- NOTE | 2019-10-06 15:00 | Consultation ---
History of Present Illness - Reason for Consult Consult date: 10/06/19 Reason for consult: AMS - Chief Complaint Chief complaint: ams, seizure - History of Present Psychiatric Illness The patient's medical record was reviewed and the patient's progress was discussed with the nursing staff. Amarilis Lei is a 59y/o female patient who was brought to the ER with a initial complaint of seizure. The patient is known to me from an earlier consult. This is the third consult placed on this patient. During my interview with the patient today she is sitting up with bed. She is on the phone. The patient tells me it's her "brother." At this time she hands me the phone. The brother is quite talkative. It's hard to get a word in with him. He starts telling me that his mother was discharged from [facility] and did not get any of her psych meds there because she had a seizure. He then tells me the patient didn't get any medications while she was here until recently. The patient states that his mother can not walk because she's weak and afraid to get out of the bed because she might fall. He becomes upset with me telling him that her being weak has nothing to do with psych. At this point the sister gets on the phone. She's more calm than her brother. She tells me the same story the brother told. She says the patient has been better since being on the Invega Sustenna but states she was also started on Risperidone at [facility] and it helped. After speaking with both the brother and the sister, I interview the patient. She is a/o x 2. She is calm and cooperative. She smiles at times during the interview. At times she's nonsensical. She verbalizes feeling "fine." She tells me that she has a history of "schizophrenia." She then states, "but it's under control." The patient denies SI/HI. The patient states, when asking her about hallucinations, she initially states "yes, they are pills." When asking the patient if she hears or sees things that no one else does, She states, "I used to hear voices. Not now." The patient then states, "I need to get my hair did." PAST PSYCHIATRIC HISTORY: Diagnoses: Schizophrenia Suicide attempts or Self-harm behavior: Denies Prior psychiatric hospitalizations: A long time ago Substance Abuse history: Denies Previous psychiatric medications tried: Could not recall Outpatient treatment: Yes PAST MEDICAL HISTORY: None reported Family Psychiatric History: None reported or documented SOCIAL HISTORY Marital Status: Living Arrangements: Alone Employment Status: Disabled Access to guns/weapons: Denies Education: History of Abuse: Denies Legal History: none reported REVIEW OF SYSTEMS Constitutional: Negative for weight loss ENT: Negative for stridor Respiratory: Negative for cough or hemoptysis All other systems reviewed and are negative MENTAL STATUS EXAMINATION General Appearance: Dressed appropriately Behavior: Calm, and cooperative Mood: "fine" Affect and affective range: Congruent with stated mood Thought Process: nonsensical at times Speech: Normal rate and volume Thought Content: Suicidal Ideation: Denies SI Homicidal Ideation: Denies HI Hallucinations: Denies Delusions: None elicited Insight and Judgment: Limited Memory/Cognition: Impaired Attention: Normal ASSESSMENT Altered Mental Status RECOMMENDATIONS Risperidone 0.25mg po BID, may continue upon discharge Continue home medications Sitter: Defer to primary Medical: per primary Disposition: Do not recommend acute inpatient psychiatric treatment at this time. Will sign off. Thank you for this consult. Please call with any questions or concerns. Medications and Allergies Allergies Allergy/AdvReac Type Severity Reaction Status Date / Time No Known Allergies Allergy Verified 09/23/19 02:20 Home Medications Medication Instructions Recorded Confirmed Last Taken Type Doxepin HCl 25 mg PO HS 09/23/19 09/23/19 Unknown History Paliperidone Palmitate [Invega 156 mg IM QMONTH 09/23/19 09/23/19 Unknown History Sustenna] Potassium Chloride [K-Dur] 20 meq PO DAILY 09/23/19 09/23/19 Unknown History Trazodone HCl 100 mg PO HS 09/23/19 09/23/19 Unknown History hydrOXYzine HCL 50 mg PO QHS 09/23/19 09/23/19 Unknown History levETIRAcetam [Keppra TAB] 500 mg PO BID 09/23/19 09/23/19 Unknown History hydroCHLOROthiazide [HCTZ] 25 mg PO QDAY 09/27/19 09/27/19 Unknown History Aspirin 81 mg PO QDAY #100 tablet 10/01/19 Unknown Rx Divalproex [Judd Parada] 500 mg PO BID #60 10/01/19 Unknown Rx Doxepin [SINEquan] 25 mg PO QHS #30 capsule 10/01/19 Unknown Rx Oxybutynin [Ditropan] 5 mg PO BID #60 tablet 10/01/19 Unknown Rx levETIRAcetam [Keppra TAB] 1,000 mg PO BID #60 tablet 10/01/19 Unknown Rx Active Meds: Active Medications Acetaminophen (Tylenol) 650 mg PO Q4H PRN PRN Reason: Pain MILD(1-3)/Fever >100.5/NICHOLAS Last Admin: 10/01/19 15:12 Dose: 650 mg Documented by: Aspirin (Aspirin) 325 mg PO QDAY [facility] Last Admin: 10/06/19 09:03 Dose: 325 mg Documented by: Atorvastatin Calcium (Lipitor) 40 mg PO QHS [facility] Last Admin: 10/05/19 21:27 Dose: 40 mg Documented by: Doxepin HCl (Sinequan) 25 mg PO QHS [facility] Last Admin: 10/05/19 21:28 Dose: 25 mg Documented by: Heparin Sodium (Porcine) (Heparin) 5,000 unit SUB-Q Q8HR [facility] Last Admin: 10/06/19 13:35 Dose: 5,000 unit Documented by: Hydralazine HCl (Apresoline) 10 mg IV Q4HR PRN PRN Reason: BP > 150/90 Last Admin: 09/28/19 03:02 Dose: 10 mg Documented by: Hydrochlorothiazide (Hctz) 25 mg PO QDAY [facility] Last Admin: 10/06/19 09:03 Dose: 25 mg Documented by: Hydroxyzine Pamoate (Vistaril) 50 mg PO QHS [facility] Last Admin: 10/05/19 21:27 Dose: 50 mg Documented by: Sodium Chloride (Nacl 0.9% 1000 Ml) 1,000 mls @ 75 mls/hr IV DIRECT [facility] Last Admin: 09/27/19 09:42 Dose: 75 mls/hr Documented by: Levetiracetam (Keppra) 1,000 mg PO BID [facility] Last Admin: 10/06/19 09:03 Dose: 1,000 mg Documented by: Lorazepam (Ativan) 1 mg IV Q3H PRN PRN Reason: Seizures Last Admin: 09/27/19 22:46 Dose: 1 mg Documented by: Magnesium Hydroxide (Milk Of Magnesia) 30 ml PO Q4H PRN PRN Reason: Constipation Ondansetron HCl (Zofran) 4 mg IV Q8H PRN PRN Reason: Nausea And Vomiting Oxybutynin Chloride (Ditropan) 5 mg PO BID [facility] Last Admin: 10/06/19 09:03 Dose: 5 mg Documented by: Potassium Chloride (K-Dur) 20 meq PO DAILY [facility] Last Admin: 10/06/19 09:03 Dose: 20 meq Documented by: Sodium Chloride (Sodium Chloride Flush Syringe 10 Ml) 10 ml IV BID [facility] Last Admin: 10/06/19 09:04 Dose: 10 ml Documented by: Sodium Chloride (Sodium Chloride Flush Syringe 10 Ml) 10 ml IV PRN PRN PRN Reason: LINE FLUSH Last Admin: 09/28/19 03:03 Dose: 10 ml Documented by: Trazodone HCl (Desyrel) 100 mg PO [facility] Last Admin: 10/05/19 21:27 Dose: 100 mg Documented by: Mental Status Exam - Vital signs Last Vital Signs Temp 98.2 F 10/06/19 08:57 Pulse 85 10/06/19 03:15 Resp 18 10/06/19 08:57 BP 127/35 10/06/19 08:57 Pulse Ox 76 L 10/06/19 08:57 Results Result Diagrams: 09/29/19 14:46 09/29/19 14:46 All other labs normal.
[2019-10-06] MEDS: risperiDONE 0.25 MG TAB PO SCH ×2 (16:08→22:49)
--- NOTE | 2019-10-06 17:59 | Progress Note ---
Assessment and Plan - Patient Problems (1) Confusion Current Visit: Yes Status: Acute Plan to address problem: Has resolved secondary to postictal. (2) Full code status Current Visit: Yes Status: Acute (3) History of bipolar disorder Current Visit: Yes Status: Acute Plan to address problem: Bipolar disorder schizoaffective disorder. Psychiatry started patient on Geodon. Mood seems to be stable at this particular time. (4) Seizures Current Visit: Yes Status: Acute Plan to address problem: Stable with Keppra. No new seizures. (5) Debility Current Visit: Yes Status: Acute Plan to address problem: Patient was able to get unable to get out of bed. Awaiting physical therapy. Plan will be to get patient home and let her sleep on the couch downstairs. Patient seizures are controlled. Not sure why she cannot go up stairs with assistance. Subjective Date of service: 10/06/19 Principal diagnosis: Seizure disorder Interval history: 59-year-old with a history of schizoaffective disorder currently was residing at [facility] presented here for uncontrolled seizure. Patient was started on Keppra on admission and has been seizure-free since that time. Patient was altered when she first came in most likely postictal but now much more alert. No concerns alert and oriented x3. Awaiting placement with long term facility. Objective - Constitutional Vitals: Vital Signs - 12hr 10/06/19 10/06/19 08:57 17:15 Temperature 98.2 F 98.3 F Pulse Rate 89 Respiratory 18 20 Rate Blood Pressure 127/35 113/70 O2 Sat by Pulse 76 L 94 Oximetry General appearance: Present: no acute distress, well-nourished - EENT Eyes: PERRL, EOM intact ENT: hearing intact, clear oral mucosa Ears: bilateral: normal - Neck Neck: supple, normal ROM - Respiratory Respiratory effort: normal Respiratory: bilateral: CTA - Breasts Breasts: normal - Cardiovascular Rhythm: regular Heart Sounds: Present: S1 & S2. Absent: gallop, rub Extremities: pulses intact, No edema, normal color, Full ROM - Gastrointestinal General gastrointestinal: Present: soft, non-tender, non-distended, normal bowel sounds - Genitourinary Female genitourinary: normal - Integumentary Integumentary: clear, warm, dry - Musculoskeletal Musculoskeletal: 1, strength equal bilaterally - Neurologic Neurologic: moves all extremities - Psychiatric Psychiatric: memory intact, appropriate mood/affect, intact judgment & insight - Labs CBC & Chem 7: 09/29/19 14:46 09/29/19 14:46
[2019-10-06] MEDS: DOXEPIN 25 MG CAP PO SCH (22:49)
[2019-10-06] MEDS: traZODone 100 MG TAB PO SCH (22:49)
[2019-10-07] MEDS: HEPARIN 5,000 UNIT/1 ML VIAL SUB-Q SCH ×3 (05:21→22:21)
[2019-10-07] MEDS: ASPIRIN 325 MG TAB PO SCH (10:53)
[2019-10-07] MEDS: POTASSIUM CHLORIDE ER 20 MEQ TAB PO SCH (10:53)
[2019-10-07] MEDS: OXYBUTYNIN 5 MG TAB PO SCH ×2 (10:53→22:21)
[2019-10-07] MEDS: levETIRAcetam 500 MG TAB PO SCH ×2 (10:53→22:21)
[2019-10-07] MEDS: risperiDONE 0.25 MG TAB PO SCH ×2 (10:53→22:21)
[2019-10-07] MEDS: hydroCHLOROthiazide 25 MG TAB PO SCH (10:53)
--- NOTE | 2019-10-07 12:37 | Discharge Summary ---
Providers - Providers Date of Admission: 09/23/19 00:36 Date of discharge: 10/07/19 Attending physician: CURLY FLORES 09/23/19 02:09 Consult to Physician [CONS] Routine Comment: Consulting Provider: LETI BANSAL Physician Instructions: Reason For Exam: SEIZURE DISORDER 09/24/19 16:34 Consult to Mental Health [CONS] Urgent Reason For Exam: psychosis 09/29/19 11:08 Physical Therapy Evaluation and Treat [CONS] Urgent Comment: Reason For Exam: PT.eval and treat, starting today Mode of Transport?: Walker 09/29/19 11:10 Occupational Therapy Evaluate and Treat [CONS] Urgent Comment: Reason For Exam: OT eval and treat ,start today. 10/01/19 09:58 Consult to Mental Health [CONS] Routine Reason For Exam: 1013 10/01/19 10:13 Consult to Case Management [CONS] Routine Services Needed at Discharge: Home Health Services Physical Therapy Occupational Therapy Facility Designer DME Equipment Notified:: oil field caser 10/06/19 09:08 Consult to Mental Health [CONS] Urgent Reason For Exam: medication adjustment Primary care physician: MANAGER OF PATIENT Hospitalization Reason for admission: sz Condition: Fair Hospital course: 59-year-old -[place] Citizen female with known history of schizoaffective disorder and seizure disorder brought in by EMS today with complaint of seizures. Most of the history was gotten from the emergency room physician as patient could not give any history. Patient was a resident of [facility]. Patient was said to have had about 6 episodes of seizures on the day of admission 3 of which were witnessed by EMS prior to arrival in the emergency room. She was found to be confused upon arrival in the emergency room. Work-up in the emergency room including CT scan of the head was unremarkable. Patient was started on Keppra. Psych saw pt for schizophrenia and recommended Risperidone 0.25mg po BID, continued upon discharge. Seizures stabilized with Keppra and SNF arrangements made. D/C time 35 min Disposition: DC-01 TO HOME OR SELFCARE Time spent for discharge: 35 - Discharge Diagnoses (1) Confusion Status: Acute (2) Debility Status: Acute (3) History of bipolar disorder Status: Acute (4) Seizures Status: Acute Core Measure Documentation - Palliative Care Palliative Care/ Comfort Measures: Not Applicable - Core Measures Any of the following diagnoses?: none Exam - Constitutional Vitals: Temp Pulse Resp BP Pulse Ox 98.9 F 73 20 136/76 94 10/07/19 09:33 10/07/19 09:33 10/07/19 09:33 10/07/19 09:33 10/07/19 04:11 General appearance: Present: no acute distress, well-nourished - EENT Eyes: Present: PERRL ENT: hearing intact, clear oral mucosa - Neck Neck: Present: supple, normal ROM - Respiratory Respiratory effort: normal Respiratory: bilateral: CTA - Cardiovascular Heart Sounds: Present: S1 & S2. Absent: rub, click - Extremities Extremities: pulses symmetrical, No edema Peripheral Pulses: within normal limits - Abdominal General gastrointestinal: Present: soft, non-tender, non-distended, normal bowel sounds Female genitourinary: Present: normal - Integumentary Integumentary: Present: clear, warm, dry - Musculoskeletal Musculoskeletal: gait normal, strength equal bilaterally - Psychiatric Psychiatric: appropriate mood/affect, intact judgment & insight - Neurologic Neurologic: CNII-XII intact, moves all extremities Plan Activity: advance as tolerated Weight Bearing Status: Weight Bear as Tolerated Diet: regular Follow up with: PRIMARY CARE, [Primary Care Provider] - 7 Days Prescriptions: Aspirin 81 mg PO QDAY #100 tablet Divalproex [Judd Parada] 500 mg PO BID #60 Oxybutynin [Ditropan] 5 mg PO BID #60 tablet levETIRAcetam [Keppra TAB] 1,000 mg PO BID #60 tablet Doxepin [SINEquan] 25 mg PO QHS #30 capsule
[2019-10-07] MEDS: DOXEPIN 25 MG CAP PO SCH (22:21)
[2019-10-07] MEDS: traZODone 100 MG TAB PO SCH (22:21)
[2019-10-08] MEDS: HEPARIN 5,000 UNIT/1 ML VIAL SUB-Q SCH ×3 (05:45→21:46)
[2019-10-08] MEDS: hydroCHLOROthiazide 25 MG TAB PO SCH (09:03)
[2019-10-08] MEDS: OXYBUTYNIN 5 MG TAB PO SCH ×2 (09:03→21:46)
[2019-10-08] MEDS: POTASSIUM CHLORIDE ER 20 MEQ TAB PO SCH (09:03)
[2019-10-08] MEDS: ASPIRIN 325 MG TAB PO SCH (09:03)
[2019-10-08] MEDS: risperiDONE 0.25 MG TAB PO SCH ×2 (09:03→21:46)
[2019-10-08] MEDS: levETIRAcetam 500 MG TAB PO SCH ×2 (09:03→21:46)
--- NOTE | 2019-10-08 12:48 | Progress Note ---
Assessment and Plan Assessment and plan: 1) acute encephalopathy Current Visit: Yes Status: Acute Plan to address problem: Has resolved secondary to postictal. (2) Full code status Current Visit: Yes Status: Acute (3) History of bipolar disorder Current Visit: Yes Status: Acute Plan to address problem: Bipolar disorder schizoaffective disorder. Psychiatry started patient on Geodon. Mood seems to be stable at this particular time. (4) Seizures Current Visit: Yes Status: Acute Plan to address problem: Stable with Keppra. No new seizures. (5) Debility Current Visit: Yes Status: Acute Plan to address problem: Patient was able to get unable to get out of bed. Physical therapy recommends SNF. Await placement. - Patient Problems (1) Confusion Current Visit: Yes Status: Acute (2) Debility Current Visit: Yes Status: Acute (3) History of bipolar disorder Current Visit: Yes Status: Acute (4) Seizures Current Visit: Yes Status: Acute History Interval history: No new issues overnight. Hospitalist Physical - Constitutional Vitals: Temp Pulse Resp BP Pulse Ox 98.1 F 80 18 123/77 93 10/08/19 07:28 10/08/19 07:28 10/08/19 07:28 10/08/19 07:28 10/08/19 07:28 General appearance: Present: no acute distress, well-nourished - EENT Eyes: Present: PERRL, EOM intact ENT: hearing intact, clear oral mucosa, dentition normal - Neck Neck: Present: supple, normal ROM - Respiratory Respiratory effort: normal Respiratory: bilateral: CTA - Cardiovascular Rhythm: regular Heart Sounds: Present: S1 & S2. Absent: gallop, rub - Extremities Extremities: no ischemia, No edema, Full ROM - Abdominal General gastrointestinal: soft, non-tender, non-distended, normal bowel sounds - Integumentary Integumentary: Present: clear, warm, dry - Neurologic Neurologic: CNII-XII intact, moves all extremities Results - Labs CBC & Chem 7: 09/29/19 14:46 09/29/19 14:46 Labs: Laboratory Last Values WBC 15.2 K/mm3 (4.5-11.0) H 09/29/19 14:46 RBC 4.76 M/mm3 (3.65-5.03) 09/29/19 14:46 Hgb 13.7 gm/dl (10.1-14.3) 09/29/19 14:46 Hct 42.1 % (30.3-42.9) 09/29/19 14:46 MCV 89 fl (79-97) 09/29/19 14:46 MCH 29 pg (28-32) 09/29/19 14:46 MCHC 33 % (30-34) 09/29/19 14:46 RDW 13.7 % (13.2-15.2) 09/29/19 14:46 Plt Count 412 K/mm3 (140-440) 09/29/19 14:46 Lymph % (Auto) 18.2 % (13.4-35.0) 09/22/19 22:53 [place] % (Auto) 7.0 % (0.0-7.3) 09/22/19 22:53 Eos % (Auto) 1.7 % (0.0-4.3) 09/22/19 22:53 Baso % (Auto) 0.5 % (0.0-1.8) 09/22/19 22:53 Lymph # 2.3 K/mm3 (1.2-5.4) 09/22/19 22:53 [place] # 0.9 K/mm3 (0.0-0.8) H 09/22/19 22:53 Eos # 0.2 K/mm3 (0.0-0.4) 09/22/19 22:53 Baso # 0.1 K/mm3 (0.0-0.1) 09/22/19 22:53 Add Manual Diff Complete 09/29/19 14:46 Total Counted 100 09/29/19 14:46 Seg Neutrophils % 72.6 % (40.0-70.0) H 09/22/19 22:53 Seg Neuts % (Manual) 67.0 % (40.0-70.0) 09/29/19 14:46 Band Neutrophils % 0 % 09/29/19 14:46 Lymphocytes % (Manual) 21.0 % (13.4-35.0) 09/29/19 14:46 Reactive Lymphs % (Man) 0 % 09/29/19 14:46 Monocytes % (Manual) 9.0 % (0.0-7.3) H 09/29/19 14:46 Eosinophils % (Manual) 2.0 % (0.0-4.3) 09/29/19 14:46 Basophils % (Manual) 1.0 % (0.0-1.8) 09/29/19 14:46 Metamyelocytes % 0 % 09/29/19 14:46 Myelocytes % 0 % 09/29/19 14:46 Promyelocytes % 0 % 09/29/19 14:46 Blast Cells % 0 % 09/29/19 14:46 Nucleated RBC % Not Reportable 09/29/19 14:46 Seg Neutrophils # 9.3 K/mm3 (1.8-7.7) H 09/22/19 22:53 Seg Neutrophils # Man 10.2 K/mm3 (1.8-7.7) H 09/29/19 14:46 Band Neutrophils # 0.0 K/mm3 09/29/19 14:46 Lymphocytes # (Manual) 3.2 K/mm3 (1.2-5.4) 09/29/19 14:46 Abs React Lymphs (Man) 0.0 K/mm3 09/29/19 14:46 Monocytes # (Manual) 1.4 K/mm3 (0.0-0.8) H 09/29/19 14:46 Eosinophils # (Manual) 0.3 K/mm3 (0.0-0.4) 09/29/19 14:46 Basophils # (Manual) 0.2 K/mm3 (0.0-0.1) H 09/29/19 14:46 Metamyelocytes # 0.0 K/mm3 09/29/19 14:46 Myelocytes # 0.0 K/mm3 09/29/19 14:46 Promyelocytes # 0.0 K/mm3 09/29/19 14:46 Blast Cells # 0.0 K/mm3 09/29/19 14:46 WBC Morphology Not Reportable 09/29/19 14:46 Hypersegmented Neuts Not Reportable 09/29/19 14:46 Hyposegmented Neuts Not Reportable 09/29/19 14:46 Hypogranular Neuts Not Reportable 09/29/19 14:46 Smudge Cells Not Reportable 09/29/19 14:46 Toxic Granulation Not Reportable 09/29/19 14:46 Toxic Vacuolation Not Reportable 09/29/19 14:46 Dohle Bodies Not Reportable 09/29/19 14:46 Pelger-Huet Anomaly Not Reportable 09/29/19 14:46 Cynthia Rods Not Reportable 09/29/19 14:46 Platelet Estimate Not Reportable 09/29/19 14:46 Clumped Platelets Few 09/29/19 14:46 Plt Clumps, EDTA Not Reportable 09/29/19 14:46 Large Platelets Not Reportable 09/29/19 14:46 Giant Platelets Not Reportable 09/29/19 14:46 Platelet Satelliting Not Reportable 09/29/19 14:46 Plt Morphology Comment Not Reportable 09/29/19 14:46 RBC Morphology Normal 09/29/19 14:46 Dimorphic RBCs Not Reportable 09/29/19 14:46 Polychromasia Not Reportable 09/29/19 14:46 Hypochromasia Not Reportable 09/29/19 14:46 Poikilocytosis Not Reportable 09/29/19 14:46 Anisocytosis Not Reportable 09/29/19 14:46 Microcytosis Not Reportable 09/29/19 14:46 Macrocytosis Not Reportable 09/29/19 14:46 Spherocytes Not Reportable 09/29/19 14:46 Pappenheimer Bodies Not Reportable 09/29/19 14:46 Sickle Cells Not Reportable 09/29/19 14:46 Target Cells Not Reportable 09/29/19 14:46 Tear Drop Cells Not Reportable 09/29/19 14:46 Ovalocytes Not Reportable 09/29/19 14:46 Helmet Cells Not Reportable 09/29/19 14:46 Raymundo-Grubbs Bodies Not Reportable 09/29/19 14:46 [place] Rings Not Reportable 09/29/19 14:46 Armando Cells Not Reportable 09/29/19 14:46 Bite Cells Not Reportable 09/29/19 14:46 Crenated Cell Not Reportable 09/29/19 14:46 Elliptocytes Not Reportable 09/29/19 14:46 Acanthocytes (Spur) Not Reportable 09/29/19 14:46 Rouleaux Not Reportable 09/29/19 14:46 Hemoglobin C Crystals Not Reportable 09/29/19 14:46 Schistocytes Not Reportable 09/29/19 14:46 Malaria parasites Not Reportable 09/29/19 14:46 Merrill Bodies Not Reportable 09/29/19 14:46 Hem Pathologist Commnt No 09/29/19 14:46 Sodium 134 mmol/L (137-145) L 09/29/19 14:46 Potassium 4.7 mmol/L (3.6-5.0) 09/29/19 14:46 Chloride 97.9 mmol/L (98-107) L 09/29/19 14:46 Carbon Dioxide 21 mmol/L (22-30) L 09/29/19 14:46 Anion Gap 20 mmol/L 09/29/19 14:46 BUN 18 mg/dL (7-17) H 09/29/19 14:46 Creatinine 0.8 mg/dL (0.6-1.2) 09/29/19 14:46 Estimated GFR > 60 ml/min 09/29/19 14:46 BUN/Creatinine Ratio 23 % 09/29/19 14:46 Glucose 188 mg/dL (65-100) H 09/29/19 14:46 POC Glucose 129 (70-105) H 09/26/19 23:47 Calcium 10.0 mg/dL (8.4-10.2) 09/29/19 14:46 Magnesium 2.30 mg/dL (1.7-2.3) 09/22/19 22:53 Total Bilirubin 0.30 mg/dL (0.1-1.2) 09/29/19 14:46 AST 20 units/L (5-40) 09/29/19 14:46 ALT 17 units/L (7-56) 09/29/19 14:46 Alkaline Phosphatase 92 units/L (35-129) 09/29/19 14:46 Total Creatine Kinase 2337 units/L (30-135) H 09/22/19 22:53 Total Protein 7.7 g/dL (6.3-8.2) 09/29/19 14:46 Albumin 3.2 g/dL (3.9-5) L 09/29/19 14:46 Albumin/Globulin Ratio 0.7 % 09/29/19 14:46 Urine Color Yellow (Yellow) 09/23/19 18:00 Urine Turbidity Clear (Clear) 09/23/19 18:00 Urine pH 6.0 (5.0-7.0) 09/23/19 18:00 Ur Specific [place] 1.015 (1.003-1.030) 09/23/19 18:00 Urine Protein <15 mg/dl mg/dL (Negative) 09/23/19 18:00 Urine Glucose (UA) Neg mg/dL (Negative) 09/23/19 18:00 Urine Ketones Tr mg/dL (Negative) 09/23/19 18:00 Urine Blood Neg (Negative) 09/23/19 18:00 Urine Nitrite Neg (Negative) 09/23/19 18:00 Urine Bilirubin Neg (Negative) 09/23/19 18:00 Urine Urobilinogen < 2.0 mg/dL (<2.0) 09/23/19 18:00 Ur Leukocyte Esterase Neg (Negative) 09/23/19 18:00 Urine WBC (Auto) < 1.0 /HPF (0.0-6.0) 09/23/19 18:00 Urine RBC (Auto) < 1.0 /HPF (0.0-6.0) 09/23/19 18:00 U Epithel Cells (Auto) < 1.0 /HPF (0-13.0) 09/23/19 18:00 Urine Opiates Screen Negative 09/23/19 18:00 Urine Methadone Screen Negative 09/23/19 18:00 Ur Barbiturates Screen Negative 09/23/19 18:00 Ur Phencyclidine Scrn Negative 09/23/19 18:00 Ur Amphetamines Screen Negative 09/23/19 18:00 U Benzodiazepines Scrn Negative 09/23/19 18:00 Urine Cocaine Screen Negative 09/23/19 18:00 U Marijuana (THC) Screen Negative 09/23/19 18:00 Drugs of Abuse Note Disclamer 09/23/19 18:00 - Diagnostic Impressions Diagnostic Impressions: Echocardiogram 09/27/19 13:11 Transthoracic Echocardiogram Indication: Stroke BP: 156/84 HR: 74 Conclusions *Technically difficult and limited study due to poor acoustic windows. *Global left ventricular wall motion and contractility are within normal limits. *The estimated ejection fraction is 55-60%. *Abnormal left ventricular diastolic filling is observed, consistent with impaired relaxation. *There is no pericardial effusion. Findings Left Ventricle: The left ventricular chamber size is normal. Global left ventricular wall motion and contractility are within normal limits. Global left ventricular systolic function is normal. The estimated ejection fraction is 55-60%. Abnormal left ventricular diastolic filling is observed, consistent with impaired relaxation. Left Atrium: The left atrial chamber size is normal. Right Atrium: The right atrial cavity size is normal. No atrial septal defected is demonstrated by agitated saline contrast. Aortic Valve: The aortic valve structure is normal. There is no evidence of aortic regurgitation. Mitral Valve: The mitral valve leaflets appear normal. There is no evidence of mitral regurgitation. Tricuspid Valve: The tricuspid valve leaflets are normal. There is mild tricuspid regurgitation. The right ventricular systolic pressure is calculated at 42 mmHg. Pulmonic Valve: The pulmonic valve appears normal. There is trace pulmonic regurgitation. Pericardium: There is no pericardial effusion. Aorta: The aorta appears normal. Contrast: Intravenous agitated saline contrast was used to assess intracardiac shunting. Measurements Chambers 2D Name Value Normal Range IVSd (2D) 0.98 cm (0.6 - 1.1) LVPWd (2D) 0.93 cm (0.6 - 1.1) LVIDd (2D) 4.28 cm (3.7 - 5.6) LVIDs (2D) 3.29 cm (2 - 3.8) LV FS (2D) 23.06 % - EF Teichholz (2D) 46.57 % - Ao root diameter (2D) 2.92 cm (2 - 3.7) Volumes/Mass Name Value Normal Range LA ESV SP 4CH (A/L) 39.49 ml - LA ESV SP 2CH (A/L) 34.44 ml - LA ESV BP (A/L) 38.07 ml - LA ESV BP (A/L) index 15.54 ml/m2 - LA ESV SP 4CH (MOD) 36.6 ml - LA ESV SP 2CH (MOD) 33.78 ml - LA ESV BP (MOD) 36.21 ml - LA ESV BP (MOD) index 14.78 ml/m2 - Diastolic/Systolic Function Name Value Normal Range MV E-wave Vmax 0.57 m/sec - MV deceleration time 184.42 msec - MV A-wave Vmax 0.83 m/sec - MV E:A ratio 0.69 ratio - Aortic Valve Name Value Normal Range AV Vmax 1.35 m/sec - AV VTI 30.97 cm - AV peak gradient 7.26 mmHg - AV mean gradient 4.29 mmHg - LVOT diameter 2.06 cm - LVOT Vmax 1.28 m/sec - LVOT VTI 25.15 cm - LVOT peak gradient 6.54 mmHg - LVOT mean gradient 3.41 mmHg - SV LVOT 84.07 ml - DONNY (continuity Vmax) 3.17 cm2 - DONNY (continuity VTI) 2.71 cm2 - Tricuspid Valve Name Value Normal Range TR Vmax 3.13 m/sec - TR peak gradient 39.19 mmHg - RAP 3 mmHg - RVSP 42 mmHg - Pulmonic Valve/Qp:Qs Name Value Normal Range PV Vmax 0.86 m/sec - PV peak gradient 2.96 mmHg - OR end-diastolic Vmax 0.94 m/sec - PV acceleration time 144.62 msec - Peres/IV: Voiding Method External Female Catheter IV Catheter Type [Left Upper Peripheral IV arm] IV Catheter Type [Right INT / Saline Lock Forearm] Active Medications - Current Medications Current Medications: Generic Name Dose Route Start Last Admin Trade Name Freq PRN Reason Stop Dose Admin Acetaminophen 650 mg 09/23/19 02:09 10/01/19 15:12 Tylenol PO 650 mg Q4H PRN Administration Pain MILD(1-3)/Fever >100.5/NICHOALS Aspirin 325 mg 09/24/19 18:00 10/08/19 09:03 Aspirin PO 325 mg QDAY FATOUMATA Administration Atorvastatin Calcium 40 mg 09/24/19 22:00 10/07/19 22:20 Lipitor PO 40 mg QHS FATOUMATA Administration Doxepin HCl 25 mg 09/23/19 22:00 10/07/19 22:21 Sinequan PO 25 mg QHS FATOUMATA Administration Heparin Sodium (Porcine) 5,000 unit 09/23/19 06:00 10/08/19 05:45 Heparin SUB-Q 5,000 unit Q8HR FATOUMATA Administration Hydralazine HCl 10 mg 09/28/19 02:53 09/28/19 03:02 Apresoline IV 10 mg Q4HR PRN Administration BP > 150/90 Hydrochlorothiazide 25 mg 09/28/19 10:00 10/08/19 09:03 Hctz PO 25 mg QDAY FATOUMATA Administration Hydroxyzine Pamoate 50 mg 09/23/19 22:00 10/07/19 22:21 Vistaril PO 50 mg QHS FATOUMATA Administration Sodium Chloride 1,000 mls @ 75 mls/hr 09/23/19 02:15 09/27/19 09:42 Nacl 0.9% 1000 Ml IV 75 mls/hr DIRECT FATOUMATA Administration Levetiracetam 1,000 mg 09/24/19 22:00 10/08/19 09:03 Keppra PO 1,000 mg BID FATOUMATA Administration Lorazepam 1 mg 09/23/19 20:22 09/27/19 22:46 Ativan IV 1 mg Q3H PRN Administration Seizures Magnesium Hydroxide 30 ml 09/23/19 02:09 Milk Of Magnesia PO Q4H PRN Constipation Ondansetron HCl 4 mg 09/23/19 02:09 Zofran IV Q8H PRN Nausea And Vomiting Oxybutynin Chloride 5 mg 09/24/19 10:00 10/08/19 09:03 Ditropan PO 5 mg BID FATOUMATA Administration Potassium Chloride 20 meq 09/23/19 18:00 10/08/19 09:03 K-Dur PO 20 meq DAILY FATOUMATA Administration Risperidone 0.25 mg 10/06/19 16:00 10/08/19 09:03 Risperdal PO 0.25 mg BID FATOUMATA Administration Sodium Chloride 10 ml 09/23/19 10:00 10/08/19 09:03 Sodium Chloride Flush Syringe 10 Ml IV 10 ml BID FATOUMATA Administration Sodium Chloride 10 ml 09/23/19 02:09 09/28/19 03:03 Sodium Chloride Flush Syringe 10 Ml IV 10 ml PRN PRN Administration LINE FLUSH Trazodone HCl 100 mg 09/23/19 22:00 10/07/19 22:21 Desyrel PO 100 mg HS FATOUMATA Administration Nutrition/Malnutrition Assess - Dietary Evaluation Nutrition/Malnutrition Findings: Nutrition Notes Start: 09/24/19 14:18 Freq: Status: Active Protocol: Document 10/05/19 15:00 NATA (Rec: 10/05/19 15:06 NATA [id number] [email or web address]) Nutrition Notes Initial or Follow up Reassessment Other Pertinent Diagnosis seizures, schizophrenia, confusion Current Diet Cardiac + Ensure High Protein daily Labs/Tests No current available Pertinent Medications Reviewed Height 5 ft 7 in Weight 143 kg [place] Body Weight (kg) 61.36 BMI 49.4 Weight Status Morbidly Obese Subjective/Other Information Unable to speak to pt via phone. She has consumed 78% of meals since last assessment . Percent of energy/protein needs met: 89% energy 79% pro (excludes ONS) Burn Absent Trauma Absent #2 Nutrition Diagnosis Inadequate oral intake As Evidenced by Signs and Symptoms pt consuming at least 50% of meals Diagnosis Progress(for reassessment Improved documentation) Is patient on ventilator? No Is Patient Ambulatory and/or Out of Bed No REE-([facility]-confined to bed) 2443.200 Kcal/Kg value to use for calculation 13 Approximate Energy Requirements Using 1859 kcal/Kg Calculation Used for Recommendations Kcal/kg Additional Notes Protein: 82-102g (0.8-1g/kg adjBW) Fluid: 1ml/kcal Nutrition Intervention Change Diet Order: Continue current diet order Add Supplement/Snack (indicate name/kcal Ensure High Protein daily /protein ) Provides kCal: 160 Provides Protein (gm) 16 Goal #1 PO intake of meals plus ONS to meet at least 75% energy and pro needs Follow-Up By: 10/12/19 Additional Comments F/U: stable intakes, wt
[2019-10-08] MEDS: DOXEPIN 25 MG CAP PO SCH (21:46)
[2019-10-08] MEDS: traZODone 100 MG TAB PO SCH (21:46)
[2019-10-09] MEDS: HEPARIN 5,000 UNIT/1 ML VIAL SUB-Q SCH ×3 (05:53→21:11)
--- NOTE | 2019-10-09 10:39 | Progress Note ---
Assessment and Plan Assessment and plan: Acute encephalopathy Has resolved secondary to postictal. Full code status History of bipolar disorder Bipolar disorder schizoaffective disorder. Psychiatry started patient on Geodon. Mood seems to be stable at this particular time. Seizures Stable with Keppra. No new seizures. Debility Patient was able to get unable to get out of bed. Physical therapy recommends SNF. Await placement. 10/09/2019. Await COVID-19 testing for SNF placement. - Patient Problems (1) Confusion Current Visit: Yes Status: Acute (2) Debility Current Visit: Yes Status: Acute (3) History of bipolar disorder Current Visit: Yes Status: Acute (4) Seizures Current Visit: Yes Status: Acute History Interval history: No new issues overnight. Hospitalist Physical - Constitutional Vitals: Temp Pulse Resp BP Pulse Ox 97.9 F 91 H 18 147/95 96 10/09/19 04:39 10/09/19 04:39 10/09/19 04:39 10/09/19 04:39 10/09/19 04:39 General appearance: Present: no acute distress, well-nourished - EENT Eyes: Present: PERRL, EOM intact ENT: hearing intact, clear oral mucosa, dentition normal - Neck Neck: Present: supple, normal ROM - Respiratory Respiratory effort: normal Respiratory: bilateral: CTA - Cardiovascular Rhythm: regular Heart Sounds: Present: S1 & S2. Absent: gallop, rub - Extremities Extremities: no ischemia, No edema, Full ROM - Abdominal General gastrointestinal: soft, non-tender, non-distended, normal bowel sounds - Integumentary Integumentary: Present: clear, warm, dry - Neurologic Neurologic: CNII-XII intact, moves all extremities Results - Labs CBC & Chem 7: 09/29/19 14:46 09/29/19 14:46 Labs: Laboratory Last Values WBC 15.2 K/mm3 (4.5-11.0) H 09/29/19 14:46 RBC 4.76 M/mm3 (3.65-5.03) 09/29/19 14:46 Hgb 13.7 gm/dl (10.1-14.3) 09/29/19 14:46 Hct 42.1 % (30.3-42.9) 09/29/19 14:46 MCV 89 fl (79-97) 09/29/19 14:46 MCH 29 pg (28-32) 09/29/19 14:46 MCHC 33 % (30-34) 09/29/19 14:46 RDW 13.7 % (13.2-15.2) 09/29/19 14:46 Plt Count 412 K/mm3 (140-440) 09/29/19 14:46 Lymph % (Auto) 18.2 % (13.4-35.0) 09/22/19 22:53 [place] % (Auto) 7.0 % (0.0-7.3) 09/22/19 22:53 Eos % (Auto) 1.7 % (0.0-4.3) 09/22/19 22:53 Baso % (Auto) 0.5 % (0.0-1.8) 09/22/19 22:53 Lymph # 2.3 K/mm3 (1.2-5.4) 09/22/19 22:53 [place] # 0.9 K/mm3 (0.0-0.8) H 09/22/19 22:53 Eos # 0.2 K/mm3 (0.0-0.4) 09/22/19 22:53 Baso # 0.1 K/mm3 (0.0-0.1) 09/22/19 22:53 Add Manual Diff Complete 09/29/19 14:46 Total Counted 100 09/29/19 14:46 Seg Neutrophils % 72.6 % (40.0-70.0) H 09/22/19 22:53 Seg Neuts % (Manual) 67.0 % (40.0-70.0) 09/29/19 14:46 Band Neutrophils % 0 % 09/29/19 14:46 Lymphocytes % (Manual) 21.0 % (13.4-35.0) 09/29/19 14:46 Reactive Lymphs % (Man) 0 % 09/29/19 14:46 Monocytes % (Manual) 9.0 % (0.0-7.3) H 09/29/19 14:46 Eosinophils % (Manual) 2.0 % (0.0-4.3) 09/29/19 14:46 Basophils % (Manual) 1.0 % (0.0-1.8) 09/29/19 14:46 Metamyelocytes % 0 % 09/29/19 14:46 Myelocytes % 0 % 09/29/19 14:46 Promyelocytes % 0 % 09/29/19 14:46 Blast Cells % 0 % 09/29/19 14:46 Nucleated RBC % Not Reportable 09/29/19 14:46 Seg Neutrophils # 9.3 K/mm3 (1.8-7.7) H 09/22/19 22:53 Seg Neutrophils # Man 10.2 K/mm3 (1.8-7.7) H 09/29/19 14:46 Band Neutrophils # 0.0 K/mm3 09/29/19 14:46 Lymphocytes # (Manual) 3.2 K/mm3 (1.2-5.4) 09/29/19 14:46 Abs React Lymphs (Man) 0.0 K/mm3 09/29/19 14:46 Monocytes # (Manual) 1.4 K/mm3 (0.0-0.8) H 09/29/19 14:46 Eosinophils # (Manual) 0.3 K/mm3 (0.0-0.4) 09/29/19 14:46 Basophils # (Manual) 0.2 K/mm3 (0.0-0.1) H 09/29/19 14:46 Metamyelocytes # 0.0 K/mm3 09/29/19 14:46 Myelocytes # 0.0 K/mm3 09/29/19 14:46 Promyelocytes # 0.0 K/mm3 09/29/19 14:46 Blast Cells # 0.0 K/mm3 09/29/19 14:46 WBC Morphology Not Reportable 09/29/19 14:46 Hypersegmented Neuts Not Reportable 09/29/19 14:46 Hyposegmented Neuts Not Reportable 09/29/19 14:46 Hypogranular Neuts Not Reportable 09/29/19 14:46 Smudge Cells Not Reportable 09/29/19 14:46 Toxic Granulation Not Reportable 09/29/19 14:46 Toxic Vacuolation Not Reportable 09/29/19 14:46 Dohle Bodies Not Reportable 09/29/19 14:46 Pelger-Huet Anomaly Not Reportable 09/29/19 14:46 Cynthia Rods Not Reportable 09/29/19 14:46 Platelet Estimate Not Reportable 09/29/19 14:46 Clumped Platelets Few 09/29/19 14:46 Plt Clumps, EDTA Not Reportable 09/29/19 14:46 Large Platelets Not Reportable 09/29/19 14:46 Giant Platelets Not Reportable 09/29/19 14:46 Platelet Satelliting Not Reportable 09/29/19 14:46 Plt Morphology Comment Not Reportable 09/29/19 14:46 RBC Morphology Normal 09/29/19 14:46 Dimorphic RBCs Not Reportable 09/29/19 14:46 Polychromasia Not Reportable 09/29/19 14:46 Hypochromasia Not Reportable 09/29/19 14:46 Poikilocytosis Not Reportable 09/29/19 14:46 Anisocytosis Not Reportable 09/29/19 14:46 Microcytosis Not Reportable 09/29/19 14:46 Macrocytosis Not Reportable 09/29/19 14:46 Spherocytes Not Reportable 09/29/19 14:46 Pappenheimer Bodies Not Reportable 09/29/19 14:46 Sickle Cells Not Reportable 09/29/19 14:46 Target Cells Not Reportable 09/29/19 14:46 Tear Drop Cells Not Reportable 09/29/19 14:46 Ovalocytes Not Reportable 09/29/19 14:46 Helmet Cells Not Reportable 09/29/19 14:46 [place] Bodies Not Reportable 09/29/19 14:46 [place] Rings Not Reportable 09/29/19 14:46 Armando Cells Not Reportable 09/29/19 14:46 Bite Cells Not Reportable 09/29/19 14:46 Crenated Cell Not Reportable 09/29/19 14:46 Elliptocytes Not Reportable 09/29/19 14:46 Acanthocytes (Spur) Not Reportable 09/29/19 14:46 Rouleaux Not Reportable 09/29/19 14:46 Hemoglobin C Crystals Not Reportable 09/29/19 14:46 Schistocytes Not Reportable 09/29/19 14:46 Malaria parasites Not Reportable 09/29/19 14:46 [place]ill Bodies Not Reportable 09/29/19 14:46 Hem Pathologist Commnt No 09/29/19 14:46 Sodium 134 mmol/L (137-145) L 09/29/19 14:46 Potassium 4.7 mmol/L (3.6-5.0) 09/29/19 14:46 Chloride 97.9 mmol/L (98-107) L 09/29/19 14:46 Carbon Dioxide 21 mmol/L (22-30) L 09/29/19 14:46 Anion Gap 20 mmol/L 09/29/19 14:46 BUN 18 mg/dL (7-17) H 09/29/19 14:46 Creatinine 0.8 mg/dL (0.6-1.2) 09/29/19 14:46 Estimated GFR > 60 ml/min 09/29/19 14:46 BUN/Creatinine Ratio 23 % 09/29/19 14:46 Glucose 188 mg/dL (65-100) H 09/29/19 14:46 POC Glucose 129 (70-105) H 09/26/19 23:47 Calcium 10.0 mg/dL (8.4-10.2) 09/29/19 14:46 Magnesium 2.30 mg/dL (1.7-2.3) 09/22/19 22:53 Total Bilirubin 0.30 mg/dL (0.1-1.2) 09/29/19 14:46 AST 20 units/L (5-40) 09/29/19 14:46 ALT 17 units/L (7-56) 09/29/19 14:46 Alkaline Phosphatase 92 units/L (35-129) 09/29/19 14:46 Total Creatine Kinase 2337 units/L (30-135) H 09/22/19 22:53 Total Protein 7.7 g/dL (6.3-8.2) 09/29/19 14:46 Albumin 3.2 g/dL (3.9-5) L 09/29/19 14:46 Albumin/Globulin Ratio 0.7 % 09/29/19 14:46 Urine Color Yellow (Yellow) 09/23/19 18:00 Urine Turbidity Clear (Clear) 09/23/19 18:00 Urine pH 6.0 (5.0-7.0) 09/23/19 18:00 Ur Specific [place] 1.015 (1.003-1.030) 09/23/19 18:00 Urine Protein <15 mg/dl mg/dL (Negative) 09/23/19 18:00 Urine Glucose (UA) Neg mg/dL (Negative) 09/23/19 18:00 Urine Ketones Tr mg/dL (Negative) 09/23/19 18:00 Urine Blood Neg (Negative) 09/23/19 18:00 Urine Nitrite Neg (Negative) 09/23/19 18:00 Urine Bilirubin Neg (Negative) 09/23/19 18:00 Urine Urobilinogen < 2.0 mg/dL (<2.0) 09/23/19 18:00 Ur Leukocyte Esterase Neg (Negative) 09/23/19 18:00 Urine WBC (Auto) < 1.0 /HPF (0.0-6.0) 09/23/19 18:00 Urine RBC (Auto) < 1.0 /HPF (0.0-6.0) 09/23/19 18:00 U Epithel Cells (Auto) < 1.0 /HPF (0-13.0) 09/23/19 18:00 Urine Opiates Screen Negative 09/23/19 18:00 Urine Methadone Screen Negative 09/23/19 18:00 Ur Barbiturates Screen Negative 09/23/19 18:00 Ur Phencyclidine Scrn Negative 09/23/19 18:00 Ur Amphetamines Screen Negative 09/23/19 18:00 U Benzodiazepines Scrn Negative 09/23/19 18:00 Urine Cocaine Screen Negative 09/23/19 18:00 U Marijuana (THC) Screen Negative 09/23/19 18:00 Drugs of Abuse Note Disclamer 09/23/19 18:00 - Diagnostic Impressions Diagnostic Impressions: Echocardiogram 09/27/19 13:11 Transthoracic Echocardiogram Indication: Stroke BP: 156/84 HR: 74 Conclusions *Technically difficult and limited study due to poor acoustic windows. *Global left ventricular wall motion and contractility are within normal limits. *The estimated ejection fraction is 55-60%. *Abnormal left ventricular diastolic filling is observed, consistent with impaired relaxation. *There is no pericardial effusion. Findings Left Ventricle: The left ventricular chamber size is normal. Global left ventricular wall motion and contractility are within normal limits. Global left ventricular systolic function is normal. The estimated ejection fraction is 55-60%. Abnormal left ventricular diastolic filling is observed, consistent with impaired relaxation. Left Atrium: The left atrial chamber size is normal. Right Atrium: The right atrial cavity size is normal. No atrial septal defected is demonstrated by agitated saline contrast. Aortic Valve: The aortic valve structure is normal. There is no evidence of aortic regurgitation. Mitral Valve: The mitral valve leaflets appear normal. There is no evidence of mitral regurgitation. Tricuspid Valve: The tricuspid valve leaflets are normal. There is mild tricuspid regurgitation. The right ventricular systolic pressure is calculated at 42 mmHg. Pulmonic Valve: The pulmonic valve appears normal. There is trace pulmonic regurgitation. Pericardium: There is no pericardial effusion. Aorta: The aorta appears normal. Contrast: Intravenous agitated saline contrast was used to assess intracardiac shunting. Measurements Chambers 2D Name Value Normal Range IVSd (2D) 0.98 cm (0.6 - 1.1) LVPWd (2D) 0.93 cm (0.6 - 1.1) LVIDd (2D) 4.28 cm (3.7 - 5.6) LVIDs (2D) 3.29 cm (2 - 3.8) LV FS (2D) 23.06 % - EF Teichholz (2D) 46.57 % - Ao root diameter (2D) 2.92 cm (2 - 3.7) Volumes/Mass Name Value Normal Range LA ESV SP 4CH (A/L) 39.49 ml - LA ESV SP 2CH (A/L) 34.44 ml - LA ESV BP (A/L) 38.07 ml - LA ESV BP (A/L) index 15.54 ml/m2 - LA ESV SP 4CH (MOD) 36.6 ml - LA ESV SP 2CH (MOD) 33.78 ml - LA ESV BP (MOD) 36.21 ml - LA ESV BP (MOD) index 14.78 ml/m2 - Diastolic/Systolic Function Name Value Normal Range MV E-wave Vmax 0.57 m/sec - MV deceleration time 184.42 msec - MV A-wave Vmax 0.83 m/sec - MV E:A ratio 0.69 ratio - Aortic Valve Name Value Normal Range AV Vmax 1.35 m/sec - AV VTI 30.97 cm - AV peak gradient 7.26 mmHg - AV mean gradient 4.29 mmHg - LVOT diameter 2.06 cm - LVOT Vmax 1.28 m/sec - LVOT VTI 25.15 cm - LVOT peak gradient 6.54 mmHg - LVOT mean gradient 3.41 mmHg - SV LVOT 84.07 ml - DONNY (continuity Vmax) 3.17 cm2 - DONNY (continuity VTI) 2.71 cm2 - Tricuspid Valve Name Value Normal Range TR Vmax 3.13 m/sec - TR peak gradient 39.19 mmHg - RAP 3 mmHg - RVSP 42 mmHg - Pulmonic Valve/Qp:Qs Name Value Normal Range PV Vmax 0.86 m/sec - PV peak gradient 2.96 mmHg - DC end-diastolic Vmax 0.94 m/sec - PV acceleration time 144.62 msec - Peres/IV: Voiding Method External Female Catheter IV Catheter Type [Left Upper Peripheral IV arm] IV Catheter Type [Right INT / Saline Lock Forearm] Active Medications - Current Medications Current Medications: Generic Name Dose Route Start Last Admin Trade Name Freq PRN Reason Stop Dose Admin Acetaminophen 650 mg 09/23/19 02:09 10/01/19 15:12 Tylenol PO 650 mg Q4H PRN Administration Pain MILD(1-3)/Fever >100.5/NICHOLAS Aspirin 325 mg 09/24/19 18:00 10/08/19 09:03 Aspirin PO 325 mg QDAY FATOUMATA Administration Atorvastatin Calcium 40 mg 09/24/19 22:00 10/08/19 21:46 Lipitor PO 40 mg QHS FATOUMATA Administration Doxepin HCl 25 mg 09/23/19 22:00 10/08/19 21:46 Sinequan PO 25 mg QHS FATOUMATA Administration Heparin Sodium (Porcine) 5,000 unit 09/23/19 06:00 10/09/19 05:53 Heparin SUB-Q 5,000 unit Q8HR FATOUMATA Administration Hydralazine HCl 10 mg 09/28/19 02:53 09/28/19 03:02 Apresoline IV 10 mg Q4HR PRN Administration BP > 150/90 Hydrochlorothiazide 25 mg 09/28/19 10:00 10/08/19 09:03 Hctz PO 25 mg QDAY FATOUMATA Administration Hydroxyzine Pamoate 50 mg 09/23/19 22:00 10/08/19 21:46 Vistaril PO 50 mg QHS FATOUMATA Administration Sodium Chloride 1,000 mls @ 75 mls/hr 09/23/19 02:15 09/27/19 09:42 Nacl 0.9% 1000 Ml IV 75 mls/hr DIRECT FATOUMATA Administration Levetiracetam 1,000 mg 09/24/19 22:00 10/08/19 21:46 Keppra PO 1,000 mg BID FATOUMATA Administration Lorazepam 1 mg 09/23/19 20:22 09/27/19 22:46 Ativan IV 1 mg Q3H PRN Administration Seizures Magnesium Hydroxide 30 ml 09/23/19 02:09 Milk Of Magnesia PO Q4H PRN Constipation Ondansetron HCl 4 mg 09/23/19 02:09 Zofran IV Q8H PRN Nausea And Vomiting Oxybutynin Chloride 5 mg 09/24/19 10:00 10/08/19 21:46 Ditropan PO 5 mg BID FATOUMATA Administration Potassium Chloride 20 meq 09/23/19 18:00 10/08/19 09:03 K-Dur PO 20 meq DAILY FATOUMATA Administration Risperidone 0.25 mg 10/06/19 16:00 10/08/19 21:46 Risperdal PO 0.25 mg BID FATOUMATA Administration Sodium Chloride 10 ml 09/23/19 10:00 10/08/19 21:46 Sodium Chloride Flush Syringe 10 Ml IV 10 ml BID FATOUMATA Administration Sodium Chloride 10 ml 09/23/19 02:09 09/28/19 03:03 Sodium Chloride Flush Syringe 10 Ml IV 10 ml PRN PRN Administration LINE FLUSH Trazodone HCl 100 mg 09/23/19 22:00 10/08/19 21:46 Desyrel PO 100 mg HS FATOUMATA Administration Nutrition/Malnutrition Assess - Dietary Evaluation Nutrition/Malnutrition Findings: Nutrition Notes Start: 09/24/19 14:18 Freq: Status: Active Protocol: Document 10/05/19 15:00 [facility] (Rec: 10/05/19 15:06 [facility] [id number]) Nutrition Notes Initial or Follow up Reassessment Other Pertinent Diagnosis seizures, schizophrenia, confusion Current Diet Cardiac + Ensure High Protein daily Labs/Tests No current available Pertinent Medications Reviewed Height 5 ft 7 in Weight 143 kg [facility] Body Weight (kg) 61.36 BMI 49.4 Weight Status Morbidly Obese Subjective/Other Information Unable to speak to pt via phone. She has consumed 78% of meals since last assessment . Percent of energy/protein needs met: 89% energy 79% pro (excludes ONS) Burn Absent Trauma Absent #2 Nutrition Diagnosis Inadequate oral intake As Evidenced by Signs and Symptoms pt consuming at least 50% of meals Diagnosis Progress(for reassessment Improved documentation) Is patient on ventilator? No Is Patient Ambulatory and/or Out of Bed No REE-([facility]-confined to bed) 2443.200 Kcal/Kg value to use for calculation 13 Approximate Energy Requirements Using 1859 kcal/Kg Calculation Used for Recommendations Kcal/kg Additional Notes Protein: 82-102g (0.8-1g/kg adjBW) Fluid: 1ml/kcal Nutrition Intervention Change Diet Order: Continue current diet order Add Supplement/Snack (indicate name/kcal Ensure High Protein daily /protein ) Provides kCal: 160 Provides Protein (gm) 16 Goal #1 PO intake of meals plus ONS to meet at least 75% energy and pro needs Follow-Up By: 10/12/19 Additional Comments F/U: stable intakes, wt
[2019-10-09] MEDS: levETIRAcetam 500 MG TAB PO SCH ×2 (11:28→21:11)
[2019-10-09] MEDS: ASPIRIN 325 MG TAB PO SCH (11:28)
[2019-10-09] MEDS: risperiDONE 0.25 MG TAB PO SCH ×2 (11:28→21:11)
[2019-10-09] MEDS: ACETAMINOPHEN 325 MG TAB PO PRN ×2 (11:28→21:13)
[2019-10-09] MEDS: POTASSIUM CHLORIDE ER 20 MEQ TAB PO SCH (11:28)
[2019-10-09] MEDS: hydroCHLOROthiazide 25 MG TAB PO SCH (11:28)
[2019-10-09] MEDS: OXYBUTYNIN 5 MG TAB PO SCH ×2 (11:30→21:12)
[2019-10-09] MEDS: DOXEPIN 25 MG CAP PO SCH (21:11)
[2019-10-09] MEDS: traZODone 100 MG TAB PO SCH (21:11)
[2019-10-10] MEDS: HEPARIN 5,000 UNIT/1 ML VIAL SUB-Q SCH ×3 (05:21→23:12)
--- NOTE | 2019-10-10 10:05 | Progress Note ---
Assessment and Plan Assessment and plan: Acute encephalopathy Has resolved secondary to postictal. Full code status History of bipolar disorder Bipolar disorder schizoaffective disorder. Psychiatry started patient on Geodon. Mood seems to be stable at this particular time. Seizures Stable with Keppra. No new seizures. Debility Patient was able to get unable to get out of bed. Physical therapy recommends SNF. Await placement. 10/09/2019. Await COVID-19 testing for SNF placement. 10/10/2019. No new seizure activity. Continue Keppra. Await COVID-19 testing for SNF placement. - Patient Problems (1) Confusion Current Visit: Yes Status: Acute (2) Debility Current Visit: Yes Status: Acute (3) History of bipolar disorder Current Visit: Yes Status: Acute (4) Seizures Current Visit: Yes Status: Acute History Interval history: No new issues overnight. Hospitalist Physical - Constitutional Vitals: Temp Pulse Resp BP Pulse Ox 98.1 F 78 18 123/65 92 10/10/19 03:38 10/10/19 03:38 10/10/19 03:38 10/10/19 03:38 10/10/19 03:38 General appearance: Present: no acute distress, well-nourished - EENT Eyes: Present: PERRL, EOM intact ENT: hearing intact, clear oral mucosa, dentition normal - Neck Neck: Present: supple, normal ROM - Respiratory Respiratory effort: normal Respiratory: bilateral: CTA - Cardiovascular Rhythm: regular Heart Sounds: Present: S1 & S2. Absent: gallop, rub - Extremities Extremities: no ischemia, No edema, Full ROM - Abdominal General gastrointestinal: soft, non-tender, non-distended, normal bowel sounds - Integumentary Integumentary: Present: clear, warm, dry - Neurologic Neurologic: CNII-XII intact, moves all extremities Results - Labs CBC & Chem 7: 09/29/19 14:46 09/29/19 14:46 Labs: Laboratory Last Values WBC 15.2 K/mm3 (4.5-11.0) H 09/29/19 14:46 RBC 4.76 M/mm3 (3.65-5.03) 09/29/19 14:46 Hgb 13.7 gm/dl (10.1-14.3) 09/29/19 14:46 Hct 42.1 % (30.3-42.9) 09/29/19 14:46 MCV 89 fl (79-97) 09/29/19 14:46 MCH 29 pg (28-32) 09/29/19 14:46 MCHC 33 % (30-34) 09/29/19 14:46 RDW 13.7 % (13.2-15.2) 09/29/19 14:46 Plt Count 412 K/mm3 (140-440) 09/29/19 14:46 Lymph % (Auto) 18.2 % (13.4-35.0) 09/22/19 22:53 [place] % (Auto) 7.0 % (0.0-7.3) 09/22/19 22:53 Eos % (Auto) 1.7 % (0.0-4.3) 09/22/19 22:53 Baso % (Auto) 0.5 % (0.0-1.8) 09/22/19 22:53 Lymph # 2.3 K/mm3 (1.2-5.4) 09/22/19 22:53 [place] # 0.9 K/mm3 (0.0-0.8) H 09/22/19 22:53 Eos # 0.2 K/mm3 (0.0-0.4) 09/22/19 22:53 Baso # 0.1 K/mm3 (0.0-0.1) 09/22/19 22:53 Add Manual Diff Complete 09/29/19 14:46 Total Counted 100 09/29/19 14:46 Seg Neutrophils % 72.6 % (40.0-70.0) H 09/22/19 22:53 Seg Neuts % (Manual) 67.0 % (40.0-70.0) 09/29/19 14:46 Band Neutrophils % 0 % 09/29/19 14:46 Lymphocytes % (Manual) 21.0 % (13.4-35.0) 09/29/19 14:46 Reactive Lymphs % (Man) 0 % 09/29/19 14:46 Monocytes % (Manual) 9.0 % (0.0-7.3) H 09/29/19 14:46 Eosinophils % (Manual) 2.0 % (0.0-4.3) 09/29/19 14:46 Basophils % (Manual) 1.0 % (0.0-1.8) 09/29/19 14:46 Metamyelocytes % 0 % 09/29/19 14:46 Myelocytes % 0 % 09/29/19 14:46 Promyelocytes % 0 % 09/29/19 14:46 Blast Cells % 0 % 09/29/19 14:46 Nucleated RBC % Not Reportable 09/29/19 14:46 Seg Neutrophils # 9.3 K/mm3 (1.8-7.7) H 09/22/19 22:53 Seg Neutrophils # Man 10.2 K/mm3 (1.8-7.7) H 09/29/19 14:46 Band Neutrophils # 0.0 K/mm3 09/29/19 14:46 Lymphocytes # (Manual) 3.2 K/mm3 (1.2-5.4) 09/29/19 14:46 Abs React Lymphs (Man) 0.0 K/mm3 09/29/19 14:46 Monocytes # (Manual) 1.4 K/mm3 (0.0-0.8) H 09/29/19 14:46 Eosinophils # (Manual) 0.3 K/mm3 (0.0-0.4) 09/29/19 14:46 Basophils # (Manual) 0.2 K/mm3 (0.0-0.1) H 09/29/19 14:46 Metamyelocytes # 0.0 K/mm3 09/29/19 14:46 Myelocytes # 0.0 K/mm3 09/29/19 14:46 Promyelocytes # 0.0 K/mm3 09/29/19 14:46 Blast Cells # 0.0 K/mm3 09/29/19 14:46 WBC Morphology Not Reportable 09/29/19 14:46 Hypersegmented Neuts Not Reportable 09/29/19 14:46 Hyposegmented Neuts Not Reportable 09/29/19 14:46 Hypogranular Neuts Not Reportable 09/29/19 14:46 Smudge Cells Not Reportable 09/29/19 14:46 Toxic Granulation Not Reportable 09/29/19 14:46 Toxic Vacuolation Not Reportable 09/29/19 14:46 Dohle Bodies Not Reportable 09/29/19 14:46 Pelger-Huet Anomaly Not Reportable 09/29/19 14:46 Cynthia Rods Not Reportable 09/29/19 14:46 Platelet Estimate Not Reportable 09/29/19 14:46 Clumped Platelets Few 09/29/19 14:46 Plt Clumps, EDTA Not Reportable 09/29/19 14:46 Large Platelets Not Reportable 09/29/19 14:46 Giant Platelets Not Reportable 09/29/19 14:46 Platelet Satelliting Not Reportable 09/29/19 14:46 Plt Morphology Comment Not Reportable 09/29/19 14:46 RBC Morphology Normal 09/29/19 14:46 Dimorphic RBCs Not Reportable 09/29/19 14:46 Polychromasia Not Reportable 09/29/19 14:46 Hypochromasia Not Reportable 09/29/19 14:46 Poikilocytosis Not Reportable 09/29/19 14:46 Anisocytosis Not Reportable 09/29/19 14:46 Microcytosis Not Reportable 09/29/19 14:46 Macrocytosis Not Reportable 09/29/19 14:46 Spherocytes Not Reportable 09/29/19 14:46 Pappenheimer Bodies Not Reportable 09/29/19 14:46 Sickle Cells Not Reportable 09/29/19 14:46 Target Cells Not Reportable 09/29/19 14:46 Tear Drop Cells Not Reportable 09/29/19 14:46 Ovalocytes Not Reportable 09/29/19 14:46 Helmet Cells Not Reportable 09/29/19 14:46 [place] Bodies Not Reportable 09/29/19 14:46 [place] Rings Not Reportable 09/29/19 14:46 [place] Cells Not Reportable 09/29/19 14:46 Bite Cells Not Reportable 09/29/19 14:46 Crenated Cell Not Reportable 09/29/19 14:46 Elliptocytes Not Reportable 09/29/19 14:46 Acanthocytes (Spur) Not Reportable 09/29/19 14:46 Rouleaux Not Reportable 09/29/19 14:46 Hemoglobin C Crystals Not Reportable 09/29/19 14:46 Schistocytes Not Reportable 09/29/19 14:46 Malaria parasites Not Reportable 09/29/19 14:46 [place] Bodies Not Reportable 09/29/19 14:46 Hem Pathologist Commnt No 09/29/19 14:46 Sodium 134 mmol/L (137-145) L 09/29/19 14:46 Potassium 4.7 mmol/L (3.6-5.0) 09/29/19 14:46 Chloride 97.9 mmol/L (98-107) L 09/29/19 14:46 Carbon Dioxide 21 mmol/L (22-30) L 09/29/19 14:46 Anion Gap 20 mmol/L 09/29/19 14:46 BUN 18 mg/dL (7-17) H 09/29/19 14:46 Creatinine 0.8 mg/dL (0.6-1.2) 09/29/19 14:46 Estimated GFR > 60 ml/min 09/29/19 14:46 BUN/Creatinine Ratio 23 % 09/29/19 14:46 Glucose 188 mg/dL (65-100) H 09/29/19 14:46 POC Glucose 129 (70-105) H 09/26/19 23:47 Calcium 10.0 mg/dL (8.4-10.2) 09/29/19 14:46 Magnesium 2.30 mg/dL (1.7-2.3) 09/22/19 22:53 Total Bilirubin 0.30 mg/dL (0.1-1.2) 09/29/19 14:46 AST 20 units/L (5-40) 09/29/19 14:46 ALT 17 units/L (7-56) 09/29/19 14:46 Alkaline Phosphatase 92 units/L (35-129) 09/29/19 14:46 Total Creatine Kinase 2337 units/L (30-135) H 09/22/19 22:53 Total Protein 7.7 g/dL (6.3-8.2) 09/29/19 14:46 Albumin 3.2 g/dL (3.9-5) L 09/29/19 14:46 Albumin/Globulin Ratio 0.7 % 09/29/19 14:46 Urine Color Yellow (Yellow) 09/23/19 18:00 Urine Turbidity Clear (Clear) 09/23/19 18:00 Urine pH 6.0 (5.0-7.0) 09/23/19 18:00 Ur Specific [place] 1.015 (1.003-1.030) 09/23/19 18:00 Urine Protein <15 mg/dl mg/dL (Negative) 09/23/19 18:00 Urine Glucose (UA) Neg mg/dL (Negative) 09/23/19 18:00 Urine Ketones Tr mg/dL (Negative) 09/23/19 18:00 Urine Blood Neg (Negative) 09/23/19 18:00 Urine Nitrite Neg (Negative) 09/23/19 18:00 Urine Bilirubin Neg (Negative) 09/23/19 18:00 Urine Urobilinogen < 2.0 mg/dL (<2.0) 09/23/19 18:00 Ur Leukocyte Esterase Neg (Negative) 09/23/19 18:00 Urine WBC (Auto) < 1.0 /HPF (0.0-6.0) 09/23/19 18:00 Urine RBC (Auto) < 1.0 /HPF (0.0-6.0) 09/23/19 18:00 U Epithel Cells (Auto) < 1.0 /HPF (0-13.0) 09/23/19 18:00 Urine Opiates Screen Negative 09/23/19 18:00 Urine Methadone Screen Negative 09/23/19 18:00 Ur Barbiturates Screen Negative 09/23/19 18:00 Ur Phencyclidine Scrn Negative 09/23/19 18:00 Ur Amphetamines Screen Negative 09/23/19 18:00 U Benzodiazepines Scrn Negative 09/23/19 18:00 Urine Cocaine Screen Negative 09/23/19 18:00 U Marijuana (THC) Screen Negative 09/23/19 18:00 Drugs of Abuse Note Disclamer 09/23/19 18:00 Coronavirus (PCR) Negative (Negative) 10/08/19 11:20 - Diagnostic Impressions Diagnostic Impressions: Echocardiogram 09/27/19 13:11 Transthoracic Echocardiogram Indication: Stroke BP: 156/84 HR: 74 Conclusions *Technically difficult and limited study due to poor acoustic windows. *Global left ventricular wall motion and contractility are within normal limits. *The estimated ejection fraction is 55-60%. *Abnormal left ventricular diastolic filling is observed, consistent with impaired relaxation. *There is no pericardial effusion. Findings Left Ventricle: The left ventricular chamber size is normal. Global left ventricular wall motion and contractility are within normal limits. Global left ventricular systolic function is normal. The estimated ejection fraction is 55-60%. Abnormal left ventricular diastolic filling is observed, consistent with impaired relaxation. Left Atrium: The left atrial chamber size is normal. Right Atrium: The right atrial cavity size is normal. No atrial septal defected is demonstrated by agitated saline contrast. Aortic Valve: The aortic valve structure is normal. There is no evidence of aortic regurgitation. Mitral Valve: The mitral valve leaflets appear normal. There is no evidence of mitral regurgitation. Tricuspid Valve: The tricuspid valve leaflets are normal. There is mild tricuspid regurgitation. The right ventricular systolic pressure is calculated at 42 mmHg. Pulmonic Valve: The pulmonic valve appears normal. There is trace pulmonic regurgitation. Pericardium: There is no pericardial effusion. Aorta: The aorta appears normal. Contrast: Intravenous agitated saline contrast was used to assess intracardiac shunting. Measurements Chambers 2D Name Value Normal Range IVSd (2D) 0.98 cm (0.6 - 1.1) LVPWd (2D) 0.93 cm (0.6 - 1.1) LVIDd (2D) 4.28 cm (3.7 - 5.6) LVIDs (2D) 3.29 cm (2 - 3.8) LV FS (2D) 23.06 % - EF Teichholz (2D) 46.57 % - Ao root diameter (2D) 2.92 cm (2 - 3.7) Volumes/Mass Name Value Normal Range LA ESV SP 4CH (A/L) 39.49 ml - LA ESV SP 2CH (A/L) 34.44 ml - LA ESV BP (A/L) 38.07 ml - LA ESV BP (A/L) index 15.54 ml/m2 - LA ESV SP 4CH (MOD) 36.6 ml - LA ESV SP 2CH (MOD) 33.78 ml - LA ESV BP (MOD) 36.21 ml - LA ESV BP (MOD) index 14.78 ml/m2 - Diastolic/Systolic Function Name Value Normal Range MV E-wave Vmax 0.57 m/sec - MV deceleration time 184.42 msec - MV A-wave Vmax 0.83 m/sec - MV E:A ratio 0.69 ratio - Aortic Valve Name Value Normal Range AV Vmax 1.35 m/sec - AV VTI 30.97 cm - AV peak gradient 7.26 mmHg - AV mean gradient 4.29 mmHg - LVOT diameter 2.06 cm - LVOT Vmax 1.28 m/sec - LVOT VTI 25.15 cm - LVOT peak gradient 6.54 mmHg - LVOT mean gradient 3.41 mmHg - SV LVOT 84.07 ml - DONNY (continuity Vmax) 3.17 cm2 - DONNY (continuity VTI) 2.71 cm2 - Tricuspid Valve Name Value Normal Range TR Vmax 3.13 m/sec - TR peak gradient 39.19 mmHg - RAP 3 mmHg - RVSP 42 mmHg - Pulmonic Valve/Qp:Qs Name Value Normal Range PV Vmax 0.86 m/sec - PV peak gradient 2.96 mmHg - SD end-diastolic Vmax 0.94 m/sec - PV acceleration time 144.62 msec - [place]/IV: Voiding Method External Female Catheter IV Catheter Type [Left Upper Peripheral IV arm] IV Catheter Type [Right INT / Saline Lock Forearm] Active Medications - Current Medications Current Medications: Generic Name Dose Route Start Last Admin Trade Name Freq PRN Reason Stop Dose Admin Acetaminophen 650 mg 09/23/19 02:09 10/09/19 21:13 Tylenol PO 650 mg Q4H PRN Administration Pain MILD(1-3)/Fever >100.5/NICHOLAS Aspirin 325 mg 09/24/19 18:00 10/09/19 11:28 Aspirin PO 325 mg QDAY FATOUMATA Administration Atorvastatin Calcium 40 mg 09/24/19 22:00 10/09/19 21:11 Lipitor PO 40 mg QHS FATOUMATA Administration Doxepin HCl 25 mg 09/23/19 22:00 10/09/19 21:11 Sinequan PO 25 mg QHS FATOUMATA Administration Heparin Sodium (Porcine) 5,000 unit 09/23/19 06:00 10/10/19 05:21 Heparin SUB-Q 5,000 unit Q8HR FATOUMATA Administration Hydralazine HCl 10 mg 09/28/19 02:53 09/28/19 03:02 Apresoline IV 10 mg Q4HR PRN Administration BP > 150/90 Hydrochlorothiazide 25 mg 09/28/19 10:00 10/09/19 11:28 Hctz PO 25 mg QDAY FATOUMATA Administration Hydroxyzine Pamoate 50 mg 09/23/19 22:00 10/09/19 21:12 Vistaril PO 50 mg QHS FATOUMATA Administration Sodium Chloride 1,000 mls @ 75 mls/hr 09/23/19 02:15 09/27/19 09:42 Nacl 0.9% 1000 Ml IV 75 mls/hr DIRECT FATOUMATA Administration Levetiracetam 1,000 mg 09/24/19 22:00 10/09/19 21:11 Keppra PO 1,000 mg BID FATOUMATA Administration Lorazepam 1 mg 09/23/19 20:22 09/27/19 22:46 Ativan IV 1 mg Q3H PRN Administration Seizures Magnesium Hydroxide 30 ml 09/23/19 02:09 Milk Of Magnesia PO Q4H PRN Constipation Ondansetron HCl 4 mg 09/23/19 02:09 Zofran IV Q8H PRN Nausea And Vomiting Oxybutynin Chloride 5 mg 09/24/19 10:00 10/09/19 21:12 Ditropan PO 5 mg BID FATOUMATA Administration Potassium Chloride 20 meq 09/23/19 18:00 10/09/19 11:28 K-Dur PO 20 meq DAILY FATOUMATA Administration Risperidone 0.25 mg 10/06/19 16:00 10/09/19 21:11 Risperdal PO 0.25 mg BID FATOUMATA Administration Sodium Chloride 10 ml 09/23/19 10:00 10/09/19 21:13 Sodium Chloride Flush Syringe 10 Ml IV 10 ml BID FATOUMATA Administration Sodium Chloride 10 ml 09/23/19 02:09 09/28/19 03:03 Sodium Chloride Flush Syringe 10 Ml IV 10 ml PRN PRN Administration LINE FLUSH Trazodone HCl 100 mg 09/23/19 22:00 10/09/19 21:11 Desyrel PO 100 mg HS FATOUMATA Administration Nutrition/Malnutrition Assess - Dietary Evaluation Nutrition/Malnutrition Findings: Nutrition Notes Start: 09/24/19 14:18 Freq: Status: Active Protocol: Document 10/05/19 15:00 NATA (Rec: 10/05/19 15:06 NATA [email or web address]) Nutrition Notes Initial or Follow up Reassessment Other Pertinent Diagnosis seizures, schizophrenia, confusion Current Diet Cardiac + Ensure High Protein daily Labs/Tests No current available Pertinent Medications Reviewed Height 5 ft 7 in Weight 143 kg [place] Body Weight (kg) 61.36 BMI 49.4 Weight Status Morbidly Obese Subjective/Other Information Unable to speak to pt via phone. She has consumed 78% of meals since last assessment . Percent of energy/protein needs met: 89% energy 79% pro (excludes ONS) Burn Absent Trauma Absent #2 Nutrition Diagnosis Inadequate oral intake As Evidenced by Signs and Symptoms pt consuming at least 50% of meals Diagnosis Progress(for reassessment Improved documentation) Is patient on ventilator? No Is Patient Ambulatory and/or Out of Bed No REE-([place]-confined to bed) 2443.200 Kcal/Kg value to use for calculation 13 Approximate Energy Requirements Using 1859 kcal/Kg Calculation Used for Recommendations Kcal/kg Additional Notes Protein: 82-102g (0.8-1g/kg adjBW) Fluid: 1ml/kcal Nutrition Intervention Change Diet Order: Continue current diet order Add Supplement/Snack (indicate name/kcal Ensure High Protein daily /protein ) Provides kCal: 160 Provides Protein (gm) 16 Goal #1 PO intake of meals plus ONS to meet at least 75% energy and pro needs Follow-Up By: 10/12/19 Additional Comments F/U: stable intakes, wt
[2019-10-10] MEDS: OXYBUTYNIN 5 MG TAB PO SCH ×2 (10:12→23:15)
[2019-10-10] MEDS: hydroCHLOROthiazide 25 MG TAB PO SCH (10:13)
[2019-10-10] MEDS: ASPIRIN 325 MG TAB PO SCH (10:13)
[2019-10-10] MEDS: POTASSIUM CHLORIDE ER 20 MEQ TAB PO SCH (10:13)
[2019-10-10] MEDS: risperiDONE 0.25 MG TAB PO SCH ×2 (10:13→23:13)
[2019-10-10] MEDS: levETIRAcetam 500 MG TAB PO SCH ×2 (10:13→23:13)
[2019-10-10] MEDS: DOXEPIN 25 MG CAP PO SCH (23:14)
[2019-10-10] MEDS: traZODone 100 MG TAB PO SCH (23:18)
[2019-10-11] MEDS: HEPARIN 5,000 UNIT/1 ML VIAL SUB-Q SCH ×2 (05:27→14:26)
[2019-10-11] MEDS: ASPIRIN 325 MG TAB PO SCH (09:33)
[2019-10-11] MEDS: OXYBUTYNIN 5 MG TAB PO SCH (09:33)
[2019-10-11] MEDS: hydroCHLOROthiazide 25 MG TAB PO SCH (09:33)
[2019-10-11] MEDS: POTASSIUM CHLORIDE ER 20 MEQ TAB PO SCH (09:34)
[2019-10-11] MEDS: levETIRAcetam 500 MG TAB PO SCH (09:34)
[2019-10-11] MEDS: risperiDONE 0.25 MG TAB PO SCH (09:34)
--- NOTE | 2019-10-11 10:15 | Progress Note ---
Assessment and Plan Assessment and plan: Acute encephalopathy Has resolved secondary to postictal. Full code status History of bipolar disorder Bipolar disorder schizoaffective disorder. Psychiatry started patient on Geodon. Mood seems to be stable at this particular time. Seizures Stable with Keppra. No new seizures. Debility Patient was able to get unable to get out of bed. Physical therapy recommends SNF. Await placement. 10/09/2019. Await COVID-19 testing for SNF placement. 10/10/2019. No new seizure activity. Continue Keppra. Await COVID-19 testing for SNF placement. 10/11/2019. No new seizure activity. Continue Keppra. Repeat COVID testing for SNF placement. - Patient Problems (1) Confusion Current Visit: Yes Status: Acute (2) Debility Current Visit: Yes Status: Acute (3) History of bipolar disorder Current Visit: Yes Status: Acute (4) Seizures Current Visit: Yes Status: Acute History Interval history: No new issues overnight. Hospitalist Physical - Constitutional Vitals: Temp Pulse Resp BP Pulse Ox 97.9 F 77 18 141/82 95 10/11/19 07:45 10/11/19 07:45 10/11/19 07:45 10/11/19 07:45 10/11/19 07:45 General appearance: Present: no acute distress, well-nourished - EENT Eyes: Present: PERRL, EOM intact ENT: hearing intact, clear oral mucosa, dentition normal - Neck Neck: Present: supple, normal ROM - Respiratory Respiratory effort: normal Respiratory: bilateral: CTA - Cardiovascular Rhythm: regular Heart Sounds: Present: S1 & S2. Absent: gallop, rub - Extremities Extremities: no ischemia, No edema, Full ROM - Abdominal General gastrointestinal: soft, non-tender, non-distended, normal bowel sounds - Integumentary Integumentary: Present: clear, warm, dry - Neurologic Neurologic: CNII-XII intact, moves all extremities Results - Labs CBC & Chem 7: 09/29/19 14:46 09/29/19 14:46 Labs: Laboratory Last Values WBC 15.2 K/mm3 (4.5-11.0) H 09/29/19 14:46 RBC 4.76 M/mm3 (3.65-5.03) 09/29/19 14:46 Hgb 13.7 gm/dl (10.1-14.3) 09/29/19 14:46 Hct 42.1 % (30.3-42.9) 09/29/19 14:46 MCV 89 fl (79-97) 09/29/19 14:46 MCH 29 pg (28-32) 09/29/19 14:46 MCHC 33 % (30-34) 09/29/19 14:46 RDW 13.7 % (13.2-15.2) 09/29/19 14:46 Plt Count 412 K/mm3 (140-440) 09/29/19 14:46 Lymph % (Auto) 18.2 % (13.4-35.0) 09/22/19 22:53 Dixie % (Auto) 7.0 % (0.0-7.3) 09/22/19 22:53 Eos % (Auto) 1.7 % (0.0-4.3) 09/22/19 22:53 Baso % (Auto) 0.5 % (0.0-1.8) 09/22/19 22:53 Lymph # 2.3 K/mm3 (1.2-5.4) 09/22/19 22:53 Dixie # 0.9 K/mm3 (0.0-0.8) H 09/22/19 22:53 Eos # 0.2 K/mm3 (0.0-0.4) 09/22/19 22:53 Baso # 0.1 K/mm3 (0.0-0.1) 09/22/19 22:53 Add Manual Diff Complete 09/29/19 14:46 Total Counted 100 09/29/19 14:46 Seg Neutrophils % 72.6 % (40.0-70.0) H 09/22/19 22:53 Seg Neuts % (Manual) 67.0 % (40.0-70.0) 09/29/19 14:46 Band Neutrophils % 0 % 09/29/19 14:46 Lymphocytes % (Manual) 21.0 % (13.4-35.0) 09/29/19 14:46 Reactive Lymphs % (Man) 0 % 09/29/19 14:46 Monocytes % (Manual) 9.0 % (0.0-7.3) H 09/29/19 14:46 Eosinophils % (Manual) 2.0 % (0.0-4.3) 09/29/19 14:46 Basophils % (Manual) 1.0 % (0.0-1.8) 09/29/19 14:46 Metamyelocytes % 0 % 09/29/19 14:46 Myelocytes % 0 % 09/29/19 14:46 Promyelocytes % 0 % 09/29/19 14:46 Blast Cells % 0 % 09/29/19 14:46 Nucleated RBC % Not Reportable 09/29/19 14:46 Seg Neutrophils # 9.3 K/mm3 (1.8-7.7) H 09/22/19 22:53 Seg Neutrophils # Man 10.2 K/mm3 (1.8-7.7) H 09/29/19 14:46 Band Neutrophils # 0.0 K/mm3 09/29/19 14:46 Lymphocytes # (Manual) 3.2 K/mm3 (1.2-5.4) 09/29/19 14:46 Abs React Lymphs (Man) 0.0 K/mm3 09/29/19 14:46 Monocytes # (Manual) 1.4 K/mm3 (0.0-0.8) H 09/29/19 14:46 Eosinophils # (Manual) 0.3 K/mm3 (0.0-0.4) 09/29/19 14:46 Basophils # (Manual) 0.2 K/mm3 (0.0-0.1) H 09/29/19 14:46 Metamyelocytes # 0.0 K/mm3 09/29/19 14:46 Myelocytes # 0.0 K/mm3 09/29/19 14:46 Promyelocytes # 0.0 K/mm3 09/29/19 14:46 Blast Cells # 0.0 K/mm3 09/29/19 14:46 WBC Morphology Not Reportable 09/29/19 14:46 Hypersegmented Neuts Not Reportable 09/29/19 14:46 Hyposegmented Neuts Not Reportable 09/29/19 14:46 Hypogranular Neuts Not Reportable 09/29/19 14:46 Smudge Cells Not Reportable 09/29/19 14:46 Toxic Granulation Not Reportable 09/29/19 14:46 Toxic Vacuolation Not Reportable 09/29/19 14:46 Dohle Bodies Not Reportable 09/29/19 14:46 Pelger-Huet Anomaly Not Reportable 09/29/19 14:46 Cynthia Rods Not Reportable 09/29/19 14:46 Platelet Estimate Not Reportable 09/29/19 14:46 Clumped Platelets Few 09/29/19 14:46 Plt Clumps, EDTA Not Reportable 09/29/19 14:46 Large Platelets Not Reportable 09/29/19 14:46 Giant Platelets Not Reportable 09/29/19 14:46 Platelet Satelliting Not Reportable 09/29/19 14:46 Plt Morphology Comment Not Reportable 09/29/19 14:46 RBC Morphology Normal 09/29/19 14:46 Dimorphic RBCs Not Reportable 09/29/19 14:46 Polychromasia Not Reportable 09/29/19 14:46 Hypochromasia Not Reportable 09/29/19 14:46 Poikilocytosis Not Reportable 09/29/19 14:46 Anisocytosis Not Reportable 09/29/19 14:46 Microcytosis Not Reportable 09/29/19 14:46 Macrocytosis Not Reportable 09/29/19 14:46 Spherocytes Not Reportable 09/29/19 14:46 Pappenheimer Bodies Not Reportable 09/29/19 14:46 Sickle Cells Not Reportable 09/29/19 14:46 Target Cells Not Reportable 09/29/19 14:46 Tear Drop Cells Not Reportable 09/29/19 14:46 Ovalocytes Not Reportable 09/29/19 14:46 Helmet Cells Not Reportable 09/29/19 14:46 Raymundo-Niederwald Bodies Not Reportable 09/29/19 14:46 Proctor Rings Not Reportable 09/29/19 14:46 Hanover Cells Not Reportable 09/29/19 14:46 Bite Cells Not Reportable 09/29/19 14:46 Crenated Cell Not Reportable 09/29/19 14:46 Elliptocytes Not Reportable 09/29/19 14:46 Acanthocytes (Spur) Not Reportable 09/29/19 14:46 Rouleaux Not Reportable 09/29/19 14:46 Hemoglobin C Crystals Not Reportable 09/29/19 14:46 Schistocytes Not Reportable 09/29/19 14:46 Malaria parasites Not Reportable 09/29/19 14:46 Merrill Bodies Not Reportable 09/29/19 14:46 Hem Pathologist Commnt No 09/29/19 14:46 Sodium 134 mmol/L (137-145) L 09/29/19 14:46 Potassium 4.7 mmol/L (3.6-5.0) 09/29/19 14:46 Chloride 97.9 mmol/L (98-107) L 09/29/19 14:46 Carbon Dioxide 21 mmol/L (22-30) L 09/29/19 14:46 Anion Gap 20 mmol/L 09/29/19 14:46 BUN 18 mg/dL (7-17) H 09/29/19 14:46 Creatinine 0.8 mg/dL (0.6-1.2) 09/29/19 14:46 Estimated GFR > 60 ml/min 09/29/19 14:46 BUN/Creatinine Ratio 23 % 09/29/19 14:46 Glucose 188 mg/dL (65-100) H 09/29/19 14:46 POC Glucose 129 (70-105) H 09/26/19 23:47 Calcium 10.0 mg/dL (8.4-10.2) 09/29/19 14:46 Magnesium 2.30 mg/dL (1.7-2.3) 09/22/19 22:53 Total Bilirubin 0.30 mg/dL (0.1-1.2) 09/29/19 14:46 AST 20 units/L (5-40) 09/29/19 14:46 ALT 17 units/L (7-56) 09/29/19 14:46 Alkaline Phosphatase 92 units/L (35-129) 09/29/19 14:46 Total Creatine Kinase 2337 units/L (30-135) H 09/22/19 22:53 Total Protein 7.7 g/dL (6.3-8.2) 09/29/19 14:46 Albumin 3.2 g/dL (3.9-5) L 09/29/19 14:46 Albumin/Globulin Ratio 0.7 % 09/29/19 14:46 Urine Color Yellow (Yellow) 09/23/19 18:00 Urine Turbidity Clear (Clear) 09/23/19 18:00 Urine pH 6.0 (5.0-7.0) 09/23/19 18:00 Ur Specific [place] 1.015 (1.003-1.030) 09/23/19 18:00 Urine Protein <15 mg/dl mg/dL (Negative) 09/23/19 18:00 Urine Glucose (UA) Neg mg/dL (Negative) 09/23/19 18:00 Urine Ketones Tr mg/dL (Negative) 09/23/19 18:00 Urine Blood Neg (Negative) 09/23/19 18:00 Urine Nitrite Neg (Negative) 09/23/19 18:00 Urine Bilirubin Neg (Negative) 09/23/19 18:00 Urine Urobilinogen < 2.0 mg/dL (<2.0) 09/23/19 18:00 Ur Leukocyte Esterase Neg (Negative) 09/23/19 18:00 Urine WBC (Auto) < 1.0 /HPF (0.0-6.0) 09/23/19 18:00 Urine RBC (Auto) < 1.0 /HPF (0.0-6.0) 09/23/19 18:00 U Epithel Cells (Auto) < 1.0 /HPF (0-13.0) 09/23/19 18:00 Urine Opiates Screen Negative 09/23/19 18:00 Urine Methadone Screen Negative 09/23/19 18:00 Ur Barbiturates Screen Negative 09/23/19 18:00 Ur Phencyclidine Scrn Negative 09/23/19 18:00 Ur Amphetamines Screen Negative 09/23/19 18:00 U Benzodiazepines Scrn Negative 09/23/19 18:00 Urine Cocaine Screen Negative 09/23/19 18:00 U Marijuana (THC) Screen Negative 09/23/19 18:00 Drugs of Abuse Note Disclamer 09/23/19 18:00 Coronavirus (PCR) Negative (Negative) 10/08/19 11:20 - Diagnostic Impressions Diagnostic Impressions: Echocardiogram 09/27/19 13:11 Transthoracic Echocardiogram Indication: Stroke BP: 156/84 HR: 74 Conclusions *Technically difficult and limited study due to poor acoustic windows. *Global left ventricular wall motion and contractility are within normal limits. *The estimated ejection fraction is 55-60%. *Abnormal left ventricular diastolic filling is observed, consistent with impaired relaxation. *There is no pericardial effusion. Findings Left Ventricle: The left ventricular chamber size is normal. Global left ventricular wall motion and contractility are within normal limits. Global left ventricular systolic function is normal. The estimated ejection fraction is 55-60%. Abnormal left ventricular diastolic filling is observed, consistent with impaired relaxation. Left Atrium: The left atrial chamber size is normal. Right Atrium: The right atrial cavity size is normal. No atrial septal defected is demonstrated by agitated saline contrast. Aortic Valve: The aortic valve structure is normal. There is no evidence of aortic regurgitation. Mitral Valve: The mitral valve leaflets appear normal. There is no evidence of mitral regurgitation. Tricuspid Valve: The tricuspid valve leaflets are normal. There is mild tricuspid regurgitation. The right ventricular systolic pressure is calculated at 42 mmHg. Pulmonic Valve: The pulmonic valve appears normal. There is trace pulmonic regurgitation. Pericardium: There is no pericardial effusion. Aorta: The aorta appears normal. Contrast: Intravenous agitated saline contrast was used to assess intracardiac shunting. Measurements Chambers 2D Name Value Normal Range IVSd (2D) 0.98 cm (0.6 - 1.1) LVPWd (2D) 0.93 cm (0.6 - 1.1) LVIDd (2D) 4.28 cm (3.7 - 5.6) LVIDs (2D) 3.29 cm (2 - 3.8) LV FS (2D) 23.06 % - EF Teichholz (2D) 46.57 % - Ao root diameter (2D) 2.92 cm (2 - 3.7) Volumes/Mass Name Value Normal Range LA ESV SP 4CH (A/L) 39.49 ml - LA ESV SP 2CH (A/L) 34.44 ml - LA ESV BP (A/L) 38.07 ml - LA ESV BP (A/L) index 15.54 ml/m2 - LA ESV SP 4CH (MOD) 36.6 ml - LA ESV SP 2CH (MOD) 33.78 ml - LA ESV BP (MOD) 36.21 ml - LA ESV BP (MOD) index 14.78 ml/m2 - Diastolic/Systolic Function Name Value Normal Range MV E-wave Vmax 0.57 m/sec - MV deceleration time 184.42 msec - MV A-wave Vmax 0.83 m/sec - MV E:A ratio 0.69 ratio - Aortic Valve Name Value Normal Range AV Vmax 1.35 m/sec - AV VTI 30.97 cm - AV peak gradient 7.26 mmHg - AV mean gradient 4.29 mmHg - LVOT diameter 2.06 cm - LVOT Vmax 1.28 m/sec - LVOT VTI 25.15 cm - LVOT peak gradient 6.54 mmHg - LVOT mean gradient 3.41 mmHg - SV LVOT 84.07 ml - DONNY (continuity Vmax) 3.17 cm2 - DONNY (continuity VTI) 2.71 cm2 - Tricuspid Valve Name Value Normal Range TR Vmax 3.13 m/sec - TR peak gradient 39.19 mmHg - RAP 3 mmHg - RVSP 42 mmHg - Pulmonic Valve/Qp:Qs Name Value Normal Range PV Vmax 0.86 m/sec - PV peak gradient 2.96 mmHg - DC end-diastolic Vmax 0.94 m/sec - PV acceleration time 144.62 msec - Peres/IV: Voiding Method External Female Catheter IV Catheter Type [Left Upper Peripheral IV arm] IV Catheter Type [Right INT / Saline Lock Forearm] Active Medications - Current Medications Current Medications: Generic Name Dose Route Start Last Admin Trade Name Freq PRN Reason Stop Dose Admin Acetaminophen 650 mg 09/23/19 02:09 10/09/19 21:13 Tylenol PO 650 mg Q4H PRN Administration Pain MILD(1-3)/Fever >100.5/NICHOLAS Aspirin 325 mg 09/24/19 18:00 10/11/19 09:33 Aspirin PO 325 mg QDAY FATOUMATA Administration Atorvastatin Calcium 40 mg 09/24/19 22:00 10/10/19 23:12 Lipitor PO 40 mg QHS FATOUMATA Administration Doxepin HCl 25 mg 09/23/19 22:00 10/10/19 23:14 Sinequan PO 25 mg QHS FATOUMATA Administration Heparin Sodium (Porcine) 5,000 unit 09/23/19 06:00 10/11/19 05:27 Heparin SUB-Q 5,000 unit Q8HR FATOUMATA Administration Hydralazine HCl 10 mg 09/28/19 02:53 09/28/19 03:02 Apresoline IV 10 mg Q4HR PRN Administration BP > 150/90 Hydrochlorothiazide 25 mg 09/28/19 10:00 10/11/19 09:33 Hctz PO 25 mg QDAY FATOUMATA Administration Hydroxyzine Pamoate 50 mg 09/23/19 22:00 10/10/19 23:13 Vistaril PO 50 mg QHS FATOUMATA Administration Sodium Chloride 1,000 mls @ 75 mls/hr 09/23/19 02:15 09/27/19 09:42 Nacl 0.9% 1000 Ml IV 75 mls/hr DIRECT FATOUMATA Administration Levetiracetam 1,000 mg 09/24/19 22:00 10/11/19 09:34 Keppra PO 1,000 mg BID FATOUMATA Administration Lorazepam 1 mg 09/23/19 20:22 09/27/19 22:46 Ativan IV 1 mg Q3H PRN Administration Seizures Magnesium Hydroxide 30 ml 09/23/19 02:09 Milk Of Magnesia PO Q4H PRN Constipation Ondansetron HCl 4 mg 09/23/19 02:09 Zofran IV Q8H PRN Nausea And Vomiting Oxybutynin Chloride 5 mg 09/24/19 10:00 10/11/19 09:33 Ditropan PO 5 mg BID FATOUMATA Administration Potassium Chloride 20 meq 09/23/19 18:00 10/11/19 09:34 K-Dur PO 20 meq DAILY FATOUMATA Administration Risperidone 0.25 mg 10/06/19 16:00 10/11/19 09:34 Risperdal PO 0.25 mg BID FATOUMATA Administration Sodium Chloride 10 ml 09/23/19 10:00 10/11/19 09:34 Sodium Chloride Flush Syringe 10 Ml IV 10 ml BID FATOUMATA Administration Sodium Chloride 10 ml 09/23/19 02:09 09/28/19 03:03 Sodium Chloride Flush Syringe 10 Ml IV 10 ml PRN PRN Administration LINE FLUSH Trazodone HCl 100 mg 09/23/19 22:00 10/10/19 23:18 Desyrel PO 100 mg HS FATOUMATA Administration Nutrition/Malnutrition Assess - Dietary Evaluation Nutrition/Malnutrition Findings: Nutrition Notes Start: 09/24/19 14:18 Freq: Status: Active Protocol: Document 10/05/19 15:00 NATA (Rec: 10/05/19 15:06 NATA [id number]) Nutrition Notes Initial or Follow up Reassessment Other Pertinent Diagnosis seizures, schizophrenia, confusion Current Diet Cardiac + Ensure High Protein daily Labs/Tests No current available Pertinent Medications Reviewed Height 5 ft 7 in Weight 143 kg [place] Body Weight (kg) 61.36 BMI 49.4 Weight Status Morbidly Obese Subjective/Other Information Unable to speak to pt via phone. She has consumed 78% of meals since last assessment . Percent of energy/protein needs met: 89% energy 79% pro (excludes ONS) Burn Absent Trauma Absent #2 Nutrition Diagnosis Inadequate oral intake As Evidenced by Signs and Symptoms pt consuming at least 50% of meals Diagnosis Progress(for reassessment Improved documentation) Is patient on ventilator? No Is Patient Ambulatory and/or Out of Bed No REE-([facility]-. [facility]-confined to bed) 2443.200 Kcal/Kg value to use for calculation 13 Approximate Energy Requirements Using 1859 kcal/Kg Calculation Used for Recommendations Kcal/kg Additional Notes Protein: 82-102g (0.8-1g/kg adjBW) Fluid: 1ml/kcal Nutrition Intervention Change Diet Order: Continue current diet order Add Supplement/Snack (indicate name/kcal Ensure High Protein daily /protein ) Provides kCal: 160 Provides Protein (gm) 16 Goal #1 PO intake of meals plus ONS to meet at least 75% energy and pro needs Follow-Up By: 10/12/19 Additional Comments F/U: stable intakes, wt
[2019-10-11 13:16] VITALS: BP 128/66
== END 2019-10-11 18:48 | DRG 101 ==
LOC: ED 22:01 → 4A 09-23 00:36
PROVIDERS: ADMIT Internal Medicine Geriatric Medicine; ATTEND Hospitalist
DX: G40.909 Epilepsy, unspecified, not intractable, without status epilepticus (principal); G93.40 Encephalopathy, unspecified; Z68.41 Body mass index [BMI] 40.0-44.9, adult; R41.0 Disorientation, unspecified; E66.01 Morbid (severe) obesity due to excess calories; F25.0 Schizoaffective disorder, bipolar type; I50.9 Heart failure, unspecified; I11.0 Hypertensive heart disease with heart failure; Z20.828 Contact with and (suspected) exposure to other viral communicable diseases; Z71.3 Dietary counseling and surveillance
CPT/HCPCS: 36415; 70450; 70551; 71045; 80053; 80307; 81001; 82550; 82962; 83735; 85007; 85025; 93306; 96374; 96375; G0378; A9270-GY; J0360; J0515; J1644; J1953; J2060; J7030; Q0177; U0003-CS